=== PATIENT | female | born 1960 | race Caucasian/White ===

== ENCOUNTER 2017-06-15 19:42 | Inpatient (IN) | payer MEDICARE, MEDICAID ==
[2017-06-15 20:24] LABS: URINE MICROSCOPIC INDICATED? YES; URINE SOURCE RANDOM
[2017-06-15 20:25] LABS: % EOSINOPHILS 4.3 % (0.0-5.0); % LYMPHOCYTES 13.4 % (20.0-50.0); % MONOCYTES 8.7 % (2.0-10.0); % NEUTROPHILS 72.6 % (40.0-80.0); BASOPHILE ABSOLUTE 0.1 Th/cumm (0-0.2); EOSINOPHILE ABSOLUTE 0.3 Th/cmm (0.1-0.4); HEMATOCRIT 39.5 % (41.0-60); HEMOGLOBIN 13.7 gm/dL (12-16); LYMPHOCYTE ABSOLUTE 0.8 Th/cmm (1.5-3.0); MEAN CELL VOLUME 89.9 fl (81-100); MEAN CORPUSCULAR HEMOGLOBIN 31.2 pg (27.0-31.0); MEAN CORPUSCULAR HGB CONC 34.7 pg (28.0-36.0); MONOCYTE ABSOLUTE 0.5 Th/cmm (0.3-1.0); NEUTROPHILE ABSOLUTE 4.6 Th/cmm (1.8-8.0); PLATELET COUNT 271 Th/cmm (150-400); RED BLOOD COUNT 4.39 Mil/cmm (3.80-5.10); RED CELL DISTRIBUTION WIDTH 12.2 % (11.5-20.0); WHITE BLOOD COUNT 6.3 Th/cmm (4.8-10.8)
[2017-06-15 20:28] LABS: URINE BILIRUBIN NEGATIVE (NEGATIVE); URINE BLOOD NEGATIVE (NEGATIVE); URINE GLUCOSE (UA) NEGATIVE (NEGATIVE); URINE KETONE NEGATIVE (NEGATIVE); URINE LEUKOCYTE ESTERASE TRACE (NEGATIVE); URINE NITRATE NEGATIVE (NEGATIVE); URINE PH 7.5 (4.6 - 8.0); URINE PROTEIN NEGATIVE (NEGATIVE); URINE UROBILINOGEN 0.2 E.U./dL (0.2 - 1.0)
--- NOTE | 2017-06-15 20:33 | ED Physician Chart ---
ED Chief Complaint/HPI - Patient Information Date Seen:: 06/15/17 Time Seen:: 20:26 Chief Complaint:: HALLUCINATING History of Present Illness:: THIS IS A 56 YO FEMALE WHO WAS SENT FROM A ALF FOR AN EVALUATION AND TREATMENT OF HER ABNORMAL ACTIVITIES. SHE HAS BEEN CONFUSED ON AND OFF WITH SOME BEING UNCOOPERATIVE WITH THE STAFF. Allergies:: Allergies Allergy/AdvReac Type Severity Reaction Status Date / Time No Known Allergies Allergy Verified 06/15/17 19:57 Vitals:: Vital Signs - 8 hr 06/15/17 19:45 Temp 97.4 F HR 88 RR 17 BP 123/60 O2 Sat % 96 Historian:: Patient, Medical Records Review:: Nurse's Note Reviewed ED Review of Systems - Review of Systems General/Constitutional: No fever, No chills, No weight loss, No weakness, No diaphoresis, Edema, No loss of appetite Skin: No skin lesions, No rash, No bruising Head: No headache, No light-headedness Eyes: No loss of vision, No pain, No diplopia ENT: No earache, No nasal drainage, No sore throat, No tinnitus Neck: No neck pain, No swelling, No thyromegaly, No stiffness, No mass noted Cardio Vascular: No chest pain, No palpitations, No PND, No orthopnea, No edema Pulmonary: No SOB, No cough, No sputum, No wheezing GI: No nausea, No vomiting, No diarrhea, No pain, No melena, No hematochezia, No constipation, No hematemesis G/U: No dysuria, No frequency, No hematuria Musculoskeletal: No bone or joint pain, No back pain, No muscle pain Endocrine: No polyuria, No polydipsia Psychiatric: Prior psych history, No depression, No anxiety, No suicidal ideation, Auditory hallucination, Visual hallucination Hematopoietic: No bruising, No lymphadenopathy Allergic/Immuno: No urticaria, No angioedema Neurological: No syncope, No focal symptoms, No weakness, No paresthesia, No headache, No seizure, No dizziness, No confusion, No vertigo ED Past Medical History - Past Medical History Obtainable: Yes Past Medical History: HTN, Other (MAJOR DEPRESSION) Family History: None Social History: Smoker, No Alcohol, No Drug Use, Care Facility Surgical History: other (RIGHT OVARIAN SURGERY) Psychiatricy History: Depression Medication: Reviewed Family Medical History - Family Member Mother History Unknown: Yes Ethnicity: Non- ED Physical Exam - Physical Examination General/Constitutional: Awake, Well-developed, well-nourished, Alert, No distress, GCS 15, Non-toxic appearing, Ambulatory Head: Atraumatic Eyes: Lids, conjuctiva normal, PERRL, EOMI Skin: Nl inspection, No rash, No skin lesions, No ecchymosis, Well hydrated, No lymphadenopathy ENMT: External ears, nose nl, Nasal exam nl, Lips, teeth, gums nl Neck: Nontender, Full ROM w/o pain, No JVD, No nuchal rigidity, No bruit, No mass, No stridor Respiratory: Nl effort/Exclusion, Clear to Auscultation, No Wheeze/Rhonchi/Rales Cardio Vascular: RRR, No murmur, gallop, rubs, NL S1 S2 GI: No tenderness/rebounding/guarding, No organomegaly, No hernia, Normal BS's, Nondistended, No mass/bruits, No McBurney tenderness : No CVA tenderness Extremities: No tenderness or effusion, Full ROM, normal strength in all extremities, No edema (BILATERAL 2+ PITTING EDEMA OF BOTH LOWER EXTREMITIES.), Normal digits & nails Neuro/Psych: Alert/oriented, DTR's symmetric, Normal sensory exam, Normal motor strength, Judgement/insight normal (POOR INSIGHT), Mood normal, Normal gait, No focal deficits Misc: Normal back, No paraspinal tenderness ED Labs/Radiology/EKG Results - Lab Results Results: Abnormal Lab Results 06/15/17 06/15/17 06/15/17 20:00 20:15 20:15 WBC 6.3 RBC 4.39 Hgb 13.7 Hct 39.5 L MCV 89.9 MCH 31.2 H MCHC Differential 34.7 RDW 12.2 Plt Count 271 MPV 9.0 Neutrophils % 72.6 Lymphocytes % 13.4 L Monocytes % 8.7 Eosinophils % 4.3 Basophils % 1.0 Sodium 137 Potassium 3.6 Chloride 104 Carbon Dioxide 27.7 Anion Gap 8.9 BUN 14 Creatinine 0.9 Est GFR ( Amer) > 60.0 Est GFR (Non-Af Amer) > 60.0 BUN/Creatinine Ratio 15.6 Glucose 97 Calcium 8.6 Total Bilirubin 0.6 AST 19 ALT 17 Alkaline Phosphatase 53 Total Protein 5.9 L Albumin 3.7 Globulin 2.2 Albumin/Globulin Ratio 1.7 Urine Source RANDOM Urine Color YELLOW Urine Clarity CLEAR Urine pH 7.5 Ur Specific [place] 1.010 Urine Protein NEGATIVE Urine Glucose (UA) NEGATIVE Urine Ketones NEGATIVE Urine Blood NEGATIVE Urine Nitrate NEGATIVE Urine Bilirubin NEGATIVE Urine Urobilinogen 0.2 Ur Leukocyte Esterase TRACE H Urine RBC NONE SEEN Urine WBC 0-2 Ur Epithelial Cells FEW Urine Bacteria OCCASIONAL Valproic Acid 06/15/17 20:15 WBC RBC Hgb Hct MCV MCH MCHC Differential RDW Plt Count MPV Neutrophils % Lymphocytes % Monocytes % Eosinophils % Basophils % Sodium Potassium Chloride Carbon Dioxide Anion Gap BUN Creatinine Est GFR ( Amer) Est GFR (Non-Af Amer) BUN/Creatinine Ratio Glucose Calcium Total Bilirubin AST ALT Alkaline Phosphatase Total Protein Albumin Globulin Albumin/Globulin Ratio Urine Source Urine Color Urine Clarity Urine pH Ur Specific [place] Urine Protein Urine Glucose (UA) Urine Ketones Urine Blood Urine Nitrate Urine Bilirubin Urine Urobilinogen Ur Leukocyte Esterase Urine RBC Urine WBC Ur Epithelial Cells Urine Bacteria Valproic Acid 27.9 L - EKG Interpretations EKG Time:: 20:19 Rate & Rhythm: RATE = 77, SINUS [place]: RIGHT ED Assessment - Assessment General Assessment: DEPRESSION ED Septic Shock - . Is Septic Shock (SBP<90, OR Lactate>4 mmol\L) present?: No - <6hrs of presentation: Vital Signs: Vital Signs - 8 hr 06/15/17 19:45 Temp 97.4 F HR 88 RR 17 BP 123/60 O2 Sat % 96 ED Reassessment (Disposition) - Reassessment Reassessment Condition:: Unchanged - Diagnosis Diagnosis:: SEVERE DEPRESSION - Aftercare/Follow up Instructions Notes:: CLEARED FOR PSYCH ADMISSION - Patient Disposition Discharge/Transfer:: Acute Care w/in this hosp Admitting Medical Physician:: Lemuel Gandara Admitting Psych Physician:: Juanito Live Condition at Disposition:: Stable ED Discharge Plan - Patient Disposition Admit/Discharge/Transfer: Acute Care w/in this hosp Condition at Disposition: Unchanged Instructions: Psychosis
[2017-06-15 20:39] LABS: ALB/GLOB RATIO 1.7 (1.0-1.8); ALBUMIN 3.7 gm/dL (3.7-5.3); ALKALINE PHOSPHATASE 53 U/L (34-104); ANION GAP 8.9 (7.0-16.0); BILIRUBIN,TOTAL 0.6 mg/dL (0.3-1.0); BUN - UREA NITROGEN 14 mg/dL (7-25); CALCIUM SERUM 8.6 mg/dL (8.6-10.3); CARBON DIOXIDE 27.7 mEq/L (21.0-31.0); CHLORIDE 104 mEq/L (98-107); CREATININE - SERUM 0.9 mg/dL (0.6-1.2); GFR AFRICAN-AMERICAN > 60.0 ml/min (>90); GFR NON AFRICAN-AMERICAN > 60.0 ml/min; GLUCOSE 97 mg/dL (70-105); POTASSIUM SERUM 3.6 mEq/L (3.5-5.1); SGOT 19 U/L (13-39); SGPT/ALT 17 U/L (7-52); SODIUM SERUM 137 mEq/L (136-145); TOTAL PROTEIN,SERUM 5.9 gm/dL (6.0-8.3)
[2017-06-15 20:39] LABS: URINE BACTERIA OCCASIONAL /hpf (NONE SEEN); URINE CLARITY CLEAR (CLEAR); URINE COLOR YELLOW; URINE EPITHELIAL CELLS FEW /lpf (FEW); URINE RBC NONE SEEN /hpf (0-5); URINE WBC 0-2 /hpf (0-5)
[2017-06-15 22:59] VITALS: BP 125/61
[2017-06-16] MEDS ORDERED: DEXTRAN EACH EYE SCH (09:00)
[2017-06-16] MEDS ORDERED: Non-Formulary Item 1 EA (Vitamin B Complex [Vitamin B Complex] 1 TAB) PO SCH (09:00)
[2017-06-16] MEDS ORDERED: HYPROMELLOSE EACH EYE SCH (09:00)
[2017-06-16] MEDS: Polyvinyl Alcohol Ophth Soln 15 mL Bottle EACH EYE SCH ×2 (09:30→17:18)
[2017-06-16] MEDS: Potassium Chloride 20 mEq ER Tab PO SCH (09:30)
[2017-06-16] MEDS: Vitamin B Complex w/Vitamin C Tab PO SCH (09:30)
--- NOTE | 2017-06-16 11:24 | History and Physical ---
History of Present Illness - HPI Chief Complaint: Increased in agitation HPI: Patient is a permanent resident of a SNF, she was send for evaluation due to increased in agitation. 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 Pertinent Hx GI: Report: No Pertinent Hx Psych: Report: Psychosis Musculoskeletal: Report: No Pertinent Hx Rheumatologic: Report: No pertinent Hx Infectious Disease: Report: No Pertinent Hx Renal/: Report: No Pertinent Hx Endocrine: Report: No Pertinent Hx Dermatology: Report: No Pertinent Hx - Past Surgical History Past Surgical History: No pertinent Hx Family Medical History - Family Member Mother History Unknown: Yes Ethnicity: Non- Social History Smoke: No Alcohol: None Drugs: None [place]: [place] Domestic Violence: Negative - Medications Home Medications: Home Medication Medication Instructions Recorded Type Dextran 70/Hypromellose 2 drop EACH EYE BID 06/15/17 History [Artificial Tears] Divalproex DR [Depakote DR] 125 mg PO Q12H 06/15/17 History Docusate Sodium [Colace] 100 mg PO BID 06/15/17 History Furosemide [Lasix] 20 mg PO DAILY 06/15/17 History Ibuprofen 600 mg PO Q8H PRN 06/15/17 History Lisinopril 5 mg PO DAILY 06/15/17 History Lorazepam [Ativan] 0.5 mg PO Q12H 06/15/17 History Potassium Chloride ER [Klor-Con] 20 meq PO DAILY 06/15/17 History QUEtiapine Fumarate [SEROquel] 200 mg PO Q12H 06/15/17 History Sertraline [Zoloft] 75 mg PO DAILY 06/15/17 History Vitamin B Complex 1 tab PO DAILY 06/15/17 History Vitamin D 1,000 unit PO BID 06/15/17 History - Allergies Allergies/Adverse Reactions: Allergies Allergy/AdvReac Type Severity Reaction Status Date / Time No Known Allergies Allergy Verified 06/15/17 19:57 Review of Systems - Review of Systems Constitutional: Report: No Significant Eyes: Report: No Significant ENT: Report: No Significant Respiratory: Report: No Significant Cardiovascular: Report: No Significant Gastrointestinal: Report: No Significant Genitourinary: Report: No Significant Musculoskeletal: Report: No Significant Skin: Report: No Significant Neurological: Report: Other (Increased in agitation) Physical Exam - Physical Exam HEENT: Report: Ears Nose Throat within normal limits Neck: Report: Within normal limits Cardiovascular Systems: Report: Regular, Rate and Rhythm Respiratory: Report: Breath Sounds are within normal limits Abdomen: Report: Non-tender to palpation Back: Report: Inspection of back is within normal limits. Extremities: Report: Non-tender to palpation. Skin: Report: Color of skin is within normal limits Neuro/Psych: Report: Depressed affect - Assessment Assessment: Patient is awake, alert, calm. Dx: increased in agitation, HTN - Plan Plan: Patient under Psychiatric care, will continue with SNF meds. Will continue to monitor.
--- NOTE | 2017-06-16 22:24 | Psychosocial Evaluation ---
DATE OF SERVICE: 06/15/2017 IDENTIFYING DATA: The patient is a 56-year-old resident of [facility]. Information obtained by directly interviewing the patient as well as reviewing the admission papers and they are reliable. JUSTIFICATION FOR HOSPITALIZATION: The patient is admitted on a voluntary basis in view of her acute agitation. CHIEF COMPLAINT: "I do not know, I don't need all these medications." HISTORY OF PRESENT ILLNESS: This seems to be one of the multiple psychiatric hospitalizations for this patient who is reported to have been screaming and yelling and has been not able to contract for safety. The patient on the day of the hospitalization has been very agitated. Coping skills at this time are noted to be very poor. Insight and judgment are also noted to be very poor. The chart has been reviewed and the patient has been on Depakote 125 mg twice a day and Seroquel 200 mg twice a day, sertraline 75 mg daily. With these medications, the patient is still getting out of control and the patient at this time has been refusing to comply with the sertraline. PAST PSYCHIATRIC HISTORY: Please refer to the above. MEDICAL HISTORY: Physical examination is requested to done by Dr. Lemuel Gandara. SUBSTANCE ABUSE HISTORY: None. PHYSICAL OR SEXUAL ABUSE HISTORY: None. LEGAL PROBLEMS: None at this time. STRENGTH AND ASSETS: The patient is motivated. MENTAL STATUS EXAMINATION: The patient is a 56-year-old, looking her stated age, superficially cooperative. Eye contact is poor. Mood is noted to be irritable. Affect is constricted. Insight and judgment at this time are noted, very much impaired. Impulse control seems to be limited. Coping skills are noted to be limited. The patient is not able to contract for safety. No side effects to the medications are noted. The patient has been having difficult time to cope with the stress. ASSESSMENT: The patient still has mood swings and the patient has been yelling and screaming. The patient's short and long-term are noted to be intact. The patient's behavior is likely a danger to self and others at this time. DIAGNOSTIC IMPRESSION: AXIS I: Schizoaffective disorder. AXIS II: None. AXIS III: As per Dr. Gandara. IMMEDIATE TREATMENT PLAN: The patient is going to be observed on inpatient unit, provided with supportive psychotherapy. The patient is going to be closely monitored. Once stabilized, the patient is going to be discharged to [facility], to be followed up on an outpatient basis. JOB# [id number]
[2017-06-17] MEDS: Vitamin B Complex w/Vitamin C Tab PO SCH (08:37)
[2017-06-17] MEDS: Potassium Chloride 20 mEq ER Tab PO SCH (08:37)
--- NOTE | 2017-06-17 08:43 | General Progress Note ---
Subjective - Review of Systems Service Date: 06/17/17 Subjective: I am OK. Objective - Results Result Diagrams: 06/15/17 20:15 06/15/17 20:15 Recent Labs: Laboratory Last Values WBC 6.3 Th/cmm (4.8-10.8) 06/15/17 20:15 RBC 4.39 Mil/cmm (3.80-5.10) 06/15/17 20:15 Hgb 13.7 gm/dL (12-16) 06/15/17 20:15 Hct 39.5 % (41.0-60) L 06/15/17 20:15 MCV 89.9 fl (81-100) 06/15/17 20:15 MCH 31.2 pg (27.0-31.0) H 06/15/17 20:15 MCHC Differential 34.7 pg (28.0-36.0) 06/15/17 20:15 RDW 12.2 % (11.5-20.0) 06/15/17 20:15 Plt Count 271 Th/cmm (150-400) 06/15/17 20:15 MPV 9.0 fl 06/15/17 20:15 Neutrophils % 72.6 % (40.0-80.0) 06/15/17 20:15 Lymphocytes % 13.4 % (20.0-50.0) L 06/15/17 20:15 Monocytes % 8.7 % (2.0-10.0) 06/15/17 20:15 Eosinophils % 4.3 % (0.0-5.0) 06/15/17 20:15 Basophils % 1.0 % (0.0-2.0) 06/15/17 20:15 Sodium 137 mEq/L (136-145) 06/15/17 20:15 Potassium 3.6 mEq/L (3.5-5.1) 06/15/17 20:15 Chloride 104 mEq/L (98-107) 06/15/17 20:15 Carbon Dioxide 27.7 mEq/L (21.0-31.0) 06/15/17 20:15 Anion Gap 8.9 (7.0-16.0) 06/15/17 20:15 BUN 14 mg/dL (7-25) 06/15/17 20:15 Creatinine 0.9 mg/dL (0.6-1.2) 06/15/17 20:15 Est GFR ( Amer) > 60.0 ml/min (>90) 06/15/17 20:15 Est GFR (Non-Af Amer) > 60.0 ml/min 06/15/17 20:15 BUN/Creatinine Ratio 15.6 06/15/17 20:15 Glucose 97 mg/dL (70-105) 06/15/17 20:15 Calcium 8.6 mg/dL (8.6-10.3) 06/15/17 20:15 Total Bilirubin 0.6 mg/dL (0.3-1.0) 06/15/17 20:15 AST 19 U/L (13-39) 06/15/17 20:15 ALT 17 U/L (7-52) 06/15/17 20:15 Alkaline Phosphatase 53 U/L (34-104) 06/15/17 20:15 Total Protein 5.9 gm/dL (6.0-8.3) L 06/15/17 20:15 Albumin 3.7 gm/dL (3.7-5.3) 06/15/17 20:15 Globulin 2.2 gm/dL 06/15/17 20:15 Albumin/Globulin Ratio 1.7 (1.0-1.8) 06/15/17 20:15 TSH 2.66 uIU/ml (0.34-5.60) 06/15/17 20:15 Urine Source RANDOM 06/15/17 20:00 Urine Color YELLOW 06/15/17 20:00 Urine Clarity CLEAR (CLEAR) 06/15/17 20:00 Urine pH 7.5 (4.6 - 8.0) 06/15/17 20:00 Ur Specific [place] 1.010 (1.005-1.030) 06/15/17 20:00 Urine Protein NEGATIVE mg/dL (NEGATIVE) 06/15/17 20:00 Urine Glucose (UA) NEGATIVE mg/dL (NEGATIVE) 06/15/17 20:00 Urine Ketones NEGATIVE mg/dL (NEGATIVE) 06/15/17 20:00 Urine Blood NEGATIVE (NEGATIVE) 06/15/17 20:00 Urine Nitrate NEGATIVE (NEGATIVE) 06/15/17 20:00 Urine Bilirubin NEGATIVE (NEGATIVE) 06/15/17 20:00 Urine Urobilinogen 0.2 E.U./dL (0.2 - 1.0) 06/15/17 20:00 Ur Leukocyte Esterase TRACE (NEGATIVE) H 06/15/17 20:00 Urine RBC NONE SEEN /hpf (0-5) 06/15/17 20:00 Urine WBC 0-2 /hpf (0-5) 06/15/17 20:00 Ur Epithelial Cells FEW /lpf (FEW) 06/15/17 20:00 Urine Bacteria OCCASIONAL /hpf (NONE SEEN) 06/15/17 20:00 Valproic Acid 27.9 ug/mL (50.0-100.0) L 06/15/17 20:15 - Physical Exam Vitals and I&O: Vital Signs Temp 97.3 F 06/17/17 06:36 Pulse 79 06/17/17 06:36 Resp 20 06/17/17 06:36 BP 109/74 06/17/17 06:36 Pulse Ox 100 06/17/17 06:36 Intake & Output 06/16/17 06/17/17 06/17/17 18:59 06:59 18:59 Intake Total 300 120 Balance 300 120 Intake: Oral 300 120 Other: # Voids 2 2 # Bowel Movements 0 Active Medications: Current Medications Acetaminophen (Tylenol) 650 mg PO Q4HR PRN PRN Reason: Mild Pain / Temp above 100 Stop: 08/14/17 23:19 Artificial Tears (Artificial Tears Ophth Soln) 2 drop EACH EYE BID [facility] Stop: 08/15/17 08:59 Last Admin: 06/16/17 17:18 Dose: 2 drop Cholecalciferol (Vitamin D3) 1,000 iu PO BID KENZIE Stop: 08/15/17 08:59 Last Admin: 06/16/17 17:18 Dose: 1,000 iu Divalproex Sodium (Depakote Dr) 125 mg PO Q12H KENZIE PRN Reason: Protocol Stop: 08/15/17 08:59 Last Admin: 06/16/17 20:46 Dose: 125 mg Docusate Sodium (Colace) 100 mg PO BID KENZIE Stop: 08/15/17 08:59 Last Admin: 06/16/17 17:18 Dose: 100 mg Furosemide (Lasix) 20 mg PO DAILY [facility] Stop: 08/15/17 08:59 Last Admin: 06/16/17 11:34 Dose: 20 mg Ibuprofen (Motrin) 600 mg PO Q8H PRN PRN Reason: Pain (Moderate) Stop: 08/14/17 22:59 Lisinopril (Zestril) 5 mg PO DAILY [facility] Stop: 08/15/17 08:59 Last Admin: 06/16/17 09:30 Dose: 5 mg Lorazepam (Ativan) 0.5 mg PO Q12H KENZIE PRN Reason: Protocol Stop: 08/15/17 08:59 Last Admin: 06/16/17 20:45 Dose: 0.5 mg Potassium Chloride (Klor-Con) 20 meq PO DAILY K[facility]IE Stop: 08/15/17 08:59 Last Admin: 06/16/17 09:30 Dose: 20 meq Quetiapine Fumarate (Seroquel) 200 mg PO Q12H KENZIE PRN Reason: Protocol Stop: 08/15/17 08:59 Last Admin: 06/16/17 20:46 Dose: 200 mg Sertraline HCl (Zoloft) 50 mg PO DAILY KENZIE PRN Reason: Protocol Stop: 08/15/17 08:59 Vitamin B Complex/Vit C/Folic Acid (Vitamin B Complex W/Vitamin C) 1 tab PO DAILY [facility] Stop: 08/15/17 08:59 Last Admin: 06/16/17 09:30 Dose: 1 tab Zolpidem Tartrate (Ambien) 5 mg PO HS PRN PRN Reason: Insomnia Stop: 08/14/17 23:19 General: Alert, Other (Confused) HEENT: Atraumatic Neck: Supple Cardiovascular: Regular rate Lungs: Clear to auscultation Abdomen: Bowel sounds Neurological: Normal gait Skin: Other (Warm and dry) Psych/Mental Status: Other (Confused, not oriented) - Procedures Procedures: Procedures Procedure Code Date OT UNILAT SALPINGO-OOPHORECTOMY 65.49 05/27/98 REMOVAL OF OVARY/TUBE(S) 61577 05/27/98 Assessment/Plan - Assessment Assessment: Patient is awake, alert, calm. Dx: increased in agitation, HTN. - Plan Plan: Patient under Psychiatric care, will continue with SNF meds. Will continue to monitor.
[2017-06-17] MEDS: Polyvinyl Alcohol Ophth Soln 15 mL Bottle EACH EYE SCH ×2 (08:49→17:11)
--- NOTE | 2017-06-17 21:29 | Progress Notes ---
DATE: 06/17/2017 SUBJECTIVE: Staff was spoken to. The patient is interviewed. Mood is noted to be irritable. Affect is constricted. The patient is pacing most of the time on the unit. Insight and judgment are noted to be impaired. Coping skills are also noted to be very poor. The patient is reluctant to comply with the medications. No side effects to the medications are noted. ASSESSMENT: The patient is still psychotic. PLAN: To continue the patient with the current medications. I encouraged the patient to verbalize the concerns rather than to act out. The patient is not ready to be discharged to a lower level of care yet. JOB# [id number]
--- NOTE | 2017-06-18 08:58 | General Progress Note ---
Subjective - Review of Systems Service Date: 06/18/17 Subjective: I am OK. Objective - Results Result Diagrams: 06/15/17 20:15 06/15/17 20:15 Recent Labs: Laboratory Last Values WBC 6.3 Th/cmm (4.8-10.8) 06/15/17 20:15 RBC 4.39 Mil/cmm (3.80-5.10) 06/15/17 20:15 Hgb 13.7 gm/dL (12-16) 06/15/17 20:15 Hct 39.5 % (41.0-60) L 06/15/17 20:15 MCV 89.9 fl (81-100) 06/15/17 20:15 MCH 31.2 pg (27.0-31.0) H 06/15/17 20:15 MCHC Differential 34.7 pg (28.0-36.0) 06/15/17 20:15 RDW 12.2 % (11.5-20.0) 06/15/17 20:15 Plt Count 271 Th/cmm (150-400) 06/15/17 20:15 MPV 9.0 fl 06/15/17 20:15 Neutrophils % 72.6 % (40.0-80.0) 06/15/17 20:15 Lymphocytes % 13.4 % (20.0-50.0) L 06/15/17 20:15 Monocytes % 8.7 % (2.0-10.0) 06/15/17 20:15 Eosinophils % 4.3 % (0.0-5.0) 06/15/17 20:15 Basophils % 1.0 % (0.0-2.0) 06/15/17 20:15 Sodium 137 mEq/L (136-145) 06/15/17 20:15 Potassium 3.6 mEq/L (3.5-5.1) 06/15/17 20:15 Chloride 104 mEq/L (98-107) 06/15/17 20:15 Carbon Dioxide 27.7 mEq/L (21.0-31.0) 06/15/17 20:15 Anion Gap 8.9 (7.0-16.0) 06/15/17 20:15 BUN 14 mg/dL (7-25) 06/15/17 20:15 Creatinine 0.9 mg/dL (0.6-1.2) 06/15/17 20:15 Est GFR ( Amer) > 60.0 ml/min (>90) 06/15/17 20:15 Est GFR (Non-Af Amer) > 60.0 ml/min 06/15/17 20:15 BUN/Creatinine Ratio 15.6 06/15/17 20:15 Glucose 97 mg/dL (70-105) 06/15/17 20:15 Calcium 8.6 mg/dL (8.6-10.3) 06/15/17 20:15 Total Bilirubin 0.6 mg/dL (0.3-1.0) 06/15/17 20:15 AST 19 U/L (13-39) 06/15/17 20:15 ALT 17 U/L (7-52) 06/15/17 20:15 Alkaline Phosphatase 53 U/L (34-104) 06/15/17 20:15 Total Protein 5.9 gm/dL (6.0-8.3) L 06/15/17 20:15 Albumin 3.7 gm/dL (3.7-5.3) 06/15/17 20:15 Globulin 2.2 gm/dL 06/15/17 20:15 Albumin/Globulin Ratio 1.7 (1.0-1.8) 06/15/17 20:15 TSH 2.66 uIU/ml (0.34-5.60) 06/15/17 20:15 Urine Source RANDOM 06/15/17 20:00 Urine Color YELLOW 06/15/17 20:00 Urine Clarity CLEAR (CLEAR) 06/15/17 20:00 Urine pH 7.5 (4.6 - 8.0) 06/15/17 20:00 Ur Specific [place] 1.010 (1.005-1.030) 06/15/17 20:00 Urine Protein NEGATIVE mg/dL (NEGATIVE) 06/15/17 20:00 Urine Glucose (UA) NEGATIVE mg/dL (NEGATIVE) 06/15/17 20:00 Urine Ketones NEGATIVE mg/dL (NEGATIVE) 06/15/17 20:00 Urine Blood NEGATIVE (NEGATIVE) 06/15/17 20:00 Urine Nitrate NEGATIVE (NEGATIVE) 06/15/17 20:00 Urine Bilirubin NEGATIVE (NEGATIVE) 06/15/17 20:00 Urine Urobilinogen 0.2 E.U./dL (0.2 - 1.0) 06/15/17 20:00 Ur Leukocyte Esterase TRACE (NEGATIVE) H 06/15/17 20:00 Urine RBC NONE SEEN /hpf (0-5) 06/15/17 20:00 Urine WBC 0-2 /hpf (0-5) 06/15/17 20:00 Ur Epithelial Cells FEW /lpf (FEW) 06/15/17 20:00 Urine Bacteria OCCASIONAL /hpf (NONE SEEN) 06/15/17 20:00 Valproic Acid 27.9 ug/mL (50.0-100.0) L 06/15/17 20:15 - Physical Exam Vitals and I&O: Vital Signs Temp 98.1 F 06/18/17 07:18 Pulse 82 06/18/17 07:18 Resp 20 06/18/17 07:18 BP 118/74 06/18/17 07:18 Pulse Ox 99 06/18/17 07:18 Intake & Output 06/17/17 06/18/17 06/18/17 18:59 06:59 18:59 Intake Total 1200 180 400 Balance 1200 180 400 Intake: Oral 1200 180 400 Other: # Voids 2 1 1 # Bowel Movements 1 1 Active Medications: Current Medications Acetaminophen (Tylenol) 650 mg PO Q4HR PRN PRN Reason: Mild Pain / Temp above 100 Stop: 08/14/17 23:19 Artificial Tears (Artificial Tears Ophth Soln) 2 drop EACH EYE BID [facility] Stop: 08/15/17 08:59 Last Admin: 06/17/17 17:11 Dose: 2 drop Cholecalciferol (Vitamin D3) 1,000 iu PO BID [facility] Stop: 08/15/17 08:59 Last Admin: 06/17/17 17:11 Dose: 1,000 iu Divalproex Sodium (Depakote Dr) 125 mg PO Q12H KENZIE PRN Reason: Protocol Stop: 08/15/17 08:59 Last Admin: 06/17/17 21:00 Dose: Not Given Docusate Sodium (Colace) 100 mg PO BID [facility] Stop: 08/15/17 08:59 Last Admin: 06/17/17 17:11 Dose: 100 mg Furosemide (Lasix) 20 mg PO DAILY [facility] Stop: 08/15/17 08:59 Last Admin: 06/17/17 08:46 Dose: 20 mg Ibuprofen (Motrin) 600 mg PO Q8H PRN PRN Reason: Pain (Moderate) Stop: 08/14/17 22:59 Lisinopril (Zestril) 5 mg PO DAILY [facility] Stop: 08/15/17 08:59 Last Admin: 06/17/17 08:46 Dose: 5 mg Lorazepam (Ativan) 0.5 mg PO Q12H KENZIE PRN Reason: Protocol Stop: 08/15/17 08:59 Last Admin: 06/17/17 21:00 Dose: Not Given Potassium Chloride (Klor-Con) 20 meq PO DAILY [facility] Stop: 08/15/17 08:59 Last Admin: 06/17/17 08:37 Dose: 20 meq Quetiapine Fumarate (Seroquel) 200 mg PO Q12H KENZIE PRN Reason: Protocol Stop: 08/15/17 08:59 Last Admin: 06/17/17 21:00 Dose: Not Given Sertraline HCl (Zoloft) 50 mg PO DAILY KENZIE PRN Reason: Protocol Stop: 08/15/17 08:59 Last Admin: 06/17/17 08:36 Dose: 50 mg Vitamin B Complex/Vit C/Folic Acid (Vitamin B Complex W/Vitamin C) 1 tab PO DAILY [facility] Stop: 08/15/17 08:59 Last Admin: 06/17/17 08:37 Dose: 1 tab Zolpidem Tartrate (Ambien) 5 mg PO HS PRN PRN Reason: Insomnia Stop: 08/14/17 23:19 General: Alert, Other (Confused) HEENT: Atraumatic Neck: Supple Cardiovascular: Regular rate Lungs: Clear to auscultation Abdomen: Bowel sounds Neurological: Normal gait Skin: Other (Warm and dry) Psych/Mental Status: Other (Confused, not oriented) - Procedures Procedures: Procedures Procedure Code Date OT UNILAT SALPINGO-OOPHORECTOMY 65.49 05/27/98 REMOVAL OF OVARY/TUBE(S) 49214 05/27/98 Assessment/Plan - Assessment Assessment: Patient is awake, alert, agitated at moments. Dx: increased in agitation, HTN. - Plan Plan: Patient under Psychiatric care, will continue with SNF meds. Will continue to monitor.
[2017-06-18] MEDS: Polyvinyl Alcohol Ophth Soln 15 mL Bottle EACH EYE SCH ×2 (09:27→16:33)
[2017-06-18] MEDS: Vitamin B Complex w/Vitamin C Tab PO SCH (09:28)
[2017-06-18] MEDS: Potassium Chloride 20 mEq ER Tab PO SCH (09:28)
--- NOTE | 2017-06-18 23:43 | Progress Notes ---
DATE: 06/18/2017 SUBJECTIVE: Staff was spoken to. The patient is interviewed. Mood is noted to be irritable. Affect is constricted. Coping skills at this time are noted to be very poor. The patient has been pacing on the unit. The patient is stating that her sister is a conservator, I need to get in touch with her to take any medications by her. The patient's coping skill at this time are noted to be very poor. Continues to be very psychotic and impulsive. Refuses to take the sertraline, I have been trying to slowly taper the sertraline down, and the patient is currently on 50 mg, and I am planning to bring it down to 25 today, and encourage the patient to comply with the treatment. The patient has been placed on the Depakote and Seroquel. JOB# [id number]
--- NOTE | 2017-06-19 09:07 | General Progress Note ---
Subjective - Review of Systems Service Date: 06/19/17 Subjective: I am OK. Objective - Results Result Diagrams: 06/15/17 20:15 06/15/17 20:15 Recent Labs: Laboratory Last Values WBC 6.3 Th/cmm (4.8-10.8) 06/15/17 20:15 RBC 4.39 Mil/cmm (3.80-5.10) 06/15/17 20:15 Hgb 13.7 gm/dL (12-16) 06/15/17 20:15 Hct 39.5 % (41.0-60) L 06/15/17 20:15 MCV 89.9 fl (81-100) 06/15/17 20:15 MCH 31.2 pg (27.0-31.0) H 06/15/17 20:15 MCHC Differential 34.7 pg (28.0-36.0) 06/15/17 20:15 RDW 12.2 % (11.5-20.0) 06/15/17 20:15 Plt Count 271 Th/cmm (150-400) 06/15/17 20:15 MPV 9.0 fl 06/15/17 20:15 Neutrophils % 72.6 % (40.0-80.0) 06/15/17 20:15 Lymphocytes % 13.4 % (20.0-50.0) L 06/15/17 20:15 Monocytes % 8.7 % (2.0-10.0) 06/15/17 20:15 Eosinophils % 4.3 % (0.0-5.0) 06/15/17 20:15 Basophils % 1.0 % (0.0-2.0) 06/15/17 20:15 Sodium 137 mEq/L (136-145) 06/15/17 20:15 Potassium 3.6 mEq/L (3.5-5.1) 06/15/17 20:15 Chloride 104 mEq/L (98-107) 06/15/17 20:15 Carbon Dioxide 27.7 mEq/L (21.0-31.0) 06/15/17 20:15 Anion Gap 8.9 (7.0-16.0) 06/15/17 20:15 BUN 14 mg/dL (7-25) 06/15/17 20:15 Creatinine 0.9 mg/dL (0.6-1.2) 06/15/17 20:15 Est GFR ( Amer) > 60.0 ml/min (>90) 06/15/17 20:15 Est GFR (Non-Af Amer) > 60.0 ml/min 06/15/17 20:15 BUN/Creatinine Ratio 15.6 06/15/17 20:15 Glucose 97 mg/dL (70-105) 06/15/17 20:15 Calcium 8.6 mg/dL (8.6-10.3) 06/15/17 20:15 Total Bilirubin 0.6 mg/dL (0.3-1.0) 06/15/17 20:15 AST 19 U/L (13-39) 06/15/17 20:15 ALT 17 U/L (7-52) 06/15/17 20:15 Alkaline Phosphatase 53 U/L (34-104) 06/15/17 20:15 Total Protein 5.9 gm/dL (6.0-8.3) L 06/15/17 20:15 Albumin 3.7 gm/dL (3.7-5.3) 06/15/17 20:15 Globulin 2.2 gm/dL 06/15/17 20:15 Albumin/Globulin Ratio 1.7 (1.0-1.8) 06/15/17 20:15 TSH 2.66 uIU/ml (0.34-5.60) 06/15/17 20:15 Urine Source RANDOM 06/15/17 20:00 Urine Color YELLOW 06/15/17 20:00 Urine Clarity CLEAR (CLEAR) 06/15/17 20:00 Urine pH 7.5 (4.6 - 8.0) 06/15/17 20:00 Ur Specific [place] 1.010 (1.005-1.030) 06/15/17 20:00 Urine Protein NEGATIVE mg/dL (NEGATIVE) 06/15/17 20:00 Urine Glucose (UA) NEGATIVE mg/dL (NEGATIVE) 06/15/17 20:00 Urine Ketones NEGATIVE mg/dL (NEGATIVE) 06/15/17 20:00 Urine Blood NEGATIVE (NEGATIVE) 06/15/17 20:00 Urine Nitrate NEGATIVE (NEGATIVE) 06/15/17 20:00 Urine Bilirubin NEGATIVE (NEGATIVE) 06/15/17 20:00 Urine Urobilinogen 0.2 E.U./dL (0.2 - 1.0) 06/15/17 20:00 Ur Leukocyte Esterase TRACE (NEGATIVE) H 06/15/17 20:00 Urine RBC NONE SEEN /hpf (0-5) 06/15/17 20:00 Urine WBC 0-2 /hpf (0-5) 06/15/17 20:00 Ur Epithelial Cells FEW /lpf (FEW) 06/15/17 20:00 Urine Bacteria OCCASIONAL /hpf (NONE SEEN) 06/15/17 20:00 Valproic Acid 27.9 ug/mL (50.0-100.0) L 06/15/17 20:15 - Physical Exam Vitals and I&O: Vital Signs Temp 98.1 F 06/18/17 07:18 Pulse 82 06/18/17 07:18 Resp 20 06/18/17 10:02 BP 118/74 06/18/17 07:18 Pulse Ox 99 06/18/17 07:18 Intake & Output 06/18/17 06/19/17 06/19/17 18:59 06:59 18:59 Intake Total 400 120 Balance 400 120 Intake: Oral 400 120 Other: # Voids 1 1 # Bowel Movements 0 Stool Characteristics Formed Active Medications: Current Medications Acetaminophen (Tylenol) 650 mg PO Q4HR PRN PRN Reason: Mild Pain / Temp above 100 Stop: 08/14/17 23:19 Artificial Tears (Artificial Tears Ophth Soln) 2 drop EACH EYE BID [facility] Stop: 08/15/17 08:59 Last Admin: 06/18/17 16:33 Dose: Not Given Cholecalciferol (Vitamin D3) 1,000 iu PO BID [facility] Stop: 08/15/17 08:59 Last Admin: 06/18/17 16:32 Dose: Not Given Divalproex Sodium (Depakote Dr) 125 mg PO Q12H KENZIE PRN Reason: Protocol Stop: 08/15/17 08:59 Last Admin: 06/18/17 21:54 Dose: Not Given Docusate Sodium (Colace) 100 mg PO BID [facility] Stop: 08/15/17 08:59 Last Admin: 06/18/17 16:33 Dose: Not Given Furosemide (Lasix) 20 mg PO DAILY [facility] Stop: 08/15/17 08:59 Last Admin: 06/18/17 09:27 Dose: Not Given Ibuprofen (Motrin) 600 mg PO Q8H PRN PRN Reason: Pain (Moderate) Stop: 08/14/17 22:59 Lisinopril (Zestril) 5 mg PO DAILY [facility] Stop: 08/15/17 08:59 Last Admin: 06/18/17 09:27 Dose: Not Given Lorazepam (Ativan) 0.5 mg PO Q12H KENZIE PRN Reason: Protocol Stop: 08/15/17 08:59 Last Admin: 06/18/17 21:17 Dose: Not Given Potassium Chloride (Klor-Con) 20 meq PO DAILY [facility] Stop: 08/15/17 08:59 Last Admin: 06/18/17 09:28 Dose: Not Given Quetiapine Fumarate (Seroquel) 200 mg PO Q12H KENZIE PRN Reason: Protocol Stop: 08/15/17 08:59 Last Admin: 06/18/17 21:18 Dose: Not Given Sertraline HCl (Zoloft) 25 mg PO DAILY KENZIE PRN Reason: Protocol Stop: 08/18/17 08:59 Vitamin B Complex/Vit C/Folic Acid (Vitamin B Complex W/Vitamin C) 1 tab PO DAILY [facility] Stop: 08/15/17 08:59 Last Admin: 06/18/17 09:28 Dose: Not Given Zolpidem Tartrate (Ambien) 5 mg PO HS PRN PRN Reason: Insomnia Stop: 08/14/17 23:19 General: Alert, Other (Confused) HEENT: Atraumatic Neck: Supple Cardiovascular: Regular rate Lungs: Clear to auscultation Abdomen: Bowel sounds Neurological: Normal gait Skin: Other (Warm and dry) Psych/Mental Status: Other (Confused, not oriented) - Procedures Procedures: Procedures Procedure Code Date OT UNILAT SALPINGO-OOPHORECTOMY 65.49 05/27/98 REMOVAL OF OVARY/TUBE(S) 29248 05/27/98 Assessment/Plan - Assessment Assessment: Patient is awake, alert, agitated at moments. Dx: increased in agitation, HTN. - Plan Plan: Patient under Psychiatric care, will continue with SNF meds. Will continue to monitor.
[2017-06-19] MEDS ORDERED: Haloperidol Lactate 5 mg/mL 1mL Vial IM ONE (09:35)
[2017-06-19] MEDS ORDERED: Haloperidol Lactate 5 mg/mL 1mL Vial ONE (09:42)
[2017-06-19] MEDS: Vitamin B Complex w/Vitamin C Tab PO SCH (10:35)
[2017-06-19] MEDS: Polyvinyl Alcohol Ophth Soln 15 mL Bottle EACH EYE SCH ×2 (10:40→16:44)
[2017-06-19] MEDS: Potassium Chloride 20 mEq ER Tab PO SCH (10:40)
--- NOTE | 2017-06-19 18:57 | Progress Notes ---
DATE: 06/19/2017 SUBJECTIVE: Staff was spoken to. The patient is interviewed. Mood is noted to be irritable. Affect is constricted. The patient is screaming and yelling. The patient has to be given a dose of Haldol, Benadryl and Ativan to calm her down. The patient is not able to contract for safety. No side effects to the medications are noted. The patient is testing the limits on the unit. ASSESSMENT: The patient is still grossly psychotic. PLAN: To continue the patient with the current medications. I encouraged the patient to verbalize the concerns rather than to act out. JOB# [id number]
[2017-06-20] MEDS: Vitamin B Complex w/Vitamin C Tab PO SCH (09:53)
[2017-06-20] MEDS: Polyvinyl Alcohol Ophth Soln 15 mL Bottle EACH EYE SCH ×2 (09:53→16:21)
[2017-06-20] MEDS: Potassium Chloride 20 mEq ER Tab PO SCH (09:53)
--- NOTE | 2017-06-20 10:29 | General Progress Note ---
Subjective - Review of Systems Service Date: 06/20/17 Subjective: I am OK. Objective - Results Result Diagrams: 06/15/17 20:15 06/15/17 20:15 Recent Labs: Laboratory Last Values WBC 6.3 Th/cmm (4.8-10.8) 06/15/17 20:15 RBC 4.39 Mil/cmm (3.80-5.10) 06/15/17 20:15 Hgb 13.7 gm/dL (12-16) 06/15/17 20:15 Hct 39.5 % (41.0-60) L 06/15/17 20:15 MCV 89.9 fl (81-100) 06/15/17 20:15 MCH 31.2 pg (27.0-31.0) H 06/15/17 20:15 MCHC Differential 34.7 pg (28.0-36.0) 06/15/17 20:15 RDW 12.2 % (11.5-20.0) 06/15/17 20:15 Plt Count 271 Th/cmm (150-400) 06/15/17 20:15 MPV 9.0 fl 06/15/17 20:15 Neutrophils % 72.6 % (40.0-80.0) 06/15/17 20:15 Lymphocytes % 13.4 % (20.0-50.0) L 06/15/17 20:15 Monocytes % 8.7 % (2.0-10.0) 06/15/17 20:15 Eosinophils % 4.3 % (0.0-5.0) 06/15/17 20:15 Basophils % 1.0 % (0.0-2.0) 06/15/17 20:15 Sodium 137 mEq/L (136-145) 06/15/17 20:15 Potassium 3.6 mEq/L (3.5-5.1) 06/15/17 20:15 Chloride 104 mEq/L (98-107) 06/15/17 20:15 Carbon Dioxide 27.7 mEq/L (21.0-31.0) 06/15/17 20:15 Anion Gap 8.9 (7.0-16.0) 06/15/17 20:15 BUN 14 mg/dL (7-25) 06/15/17 20:15 Creatinine 0.9 mg/dL (0.6-1.2) 06/15/17 20:15 Est GFR ( Amer) > 60.0 ml/min (>90) 06/15/17 20:15 Est GFR (Non-Af Amer) > 60.0 ml/min 06/15/17 20:15 BUN/Creatinine Ratio 15.6 06/15/17 20:15 Glucose 97 mg/dL (70-105) 06/15/17 20:15 Calcium 8.6 mg/dL (8.6-10.3) 06/15/17 20:15 Total Bilirubin 0.6 mg/dL (0.3-1.0) 06/15/17 20:15 AST 19 U/L (13-39) 06/15/17 20:15 ALT 17 U/L (7-52) 06/15/17 20:15 Alkaline Phosphatase 53 U/L (34-104) 06/15/17 20:15 Total Protein 5.9 gm/dL (6.0-8.3) L 06/15/17 20:15 Albumin 3.7 gm/dL (3.7-5.3) 06/15/17 20:15 Globulin 2.2 gm/dL 06/15/17 20:15 Albumin/Globulin Ratio 1.7 (1.0-1.8) 06/15/17 20:15 TSH 2.66 uIU/ml (0.34-5.60) 06/15/17 20:15 Urine Source RANDOM 06/15/17 20:00 Urine Color YELLOW 06/15/17 20:00 Urine Clarity CLEAR (CLEAR) 06/15/17 20:00 Urine pH 7.5 (4.6 - 8.0) 06/15/17 20:00 Ur Specific [place] 1.010 (1.005-1.030) 06/15/17 20:00 Urine Protein NEGATIVE mg/dL (NEGATIVE) 06/15/17 20:00 Urine Glucose (UA) NEGATIVE mg/dL (NEGATIVE) 06/15/17 20:00 Urine Ketones NEGATIVE mg/dL (NEGATIVE) 06/15/17 20:00 Urine Blood NEGATIVE (NEGATIVE) 06/15/17 20:00 Urine Nitrate NEGATIVE (NEGATIVE) 06/15/17 20:00 Urine Bilirubin NEGATIVE (NEGATIVE) 06/15/17 20:00 Urine Urobilinogen 0.2 E.U./dL (0.2 - 1.0) 06/15/17 20:00 Ur Leukocyte Esterase TRACE (NEGATIVE) H 06/15/17 20:00 Urine RBC NONE SEEN /hpf (0-5) 06/15/17 20:00 Urine WBC 0-2 /hpf (0-5) 06/15/17 20:00 Ur Epithelial Cells FEW /lpf (FEW) 06/15/17 20:00 Urine Bacteria OCCASIONAL /hpf (NONE SEEN) 06/15/17 20:00 Valproic Acid 27.9 ug/mL (50.0-100.0) L 06/15/17 20:15 RPR NONREACTIVE (NONREACTIVE) 06/15/17 20:15 - Physical Exam Vitals and I&O: Vital Signs Temp 97.8 F 06/20/17 06:51 Pulse 75 06/20/17 06:51 Resp 20 06/20/17 06:51 BP 125/60 06/20/17 06:51 Pulse Ox 97 06/20/17 06:51 Intake & Output 06/19/17 06/20/17 06/20/17 18:59 06:59 18:59 Intake Total 800 120 Balance 800 120 Intake: Oral 800 120 Other: # Voids 3 3 # Bowel Movements 1 Stool Characteristics Formed Formed Active Medications: Current Medications Acetaminophen (Tylenol) 650 mg PO Q4HR PRN PRN Reason: Mild Pain / Temp above 100 Stop: 08/14/17 23:19 Artificial Tears (Artificial Tears Ophth Soln) 2 drop EACH EYE BID [facility] Stop: 08/15/17 08:59 Last Admin: 06/20/17 09:53 Dose: Not Given Cholecalciferol (Vitamin D3) 1,000 iu PO BID [facility] Stop: 08/15/17 08:59 Last Admin: 06/20/17 09:53 Dose: Not Given Divalproex Sodium (Depakote Dr) 125 mg PO Q12H KENZIE PRN Reason: Protocol Stop: 08/15/17 08:59 Last Admin: 06/20/17 09:53 Dose: Not Given Docusate Sodium (Colace) 100 mg PO BID [facility] Stop: 08/15/17 08:59 Last Admin: 06/20/17 09:53 Dose: Not Given Furosemide (Lasix) 20 mg PO DAILY [facility] Stop: 08/15/17 08:59 Last Admin: 06/20/17 09:53 Dose: Not Given Ibuprofen (Motrin) 600 mg PO Q8H PRN PRN Reason: Pain (Moderate) Stop: 08/14/17 22:59 Lisinopril (Zestril) 5 mg PO DAILY [facility] Stop: 08/15/17 08:59 Last Admin: 06/20/17 09:53 Dose: Not Given Lorazepam (Ativan) 0.5 mg PO Q12H KENZIE PRN Reason: Protocol Stop: 08/15/17 08:59 Last Admin: 06/20/17 09:53 Dose: Not Given Potassium Chloride (Klor-Con) 20 meq PO DAILY [facility] Stop: 08/15/17 08:59 Last Admin: 06/20/17 09:53 Dose: Not Given Quetiapine Fumarate (Seroquel) 200 mg PO Q12H KENZIE PRN Reason: Protocol Stop: 08/15/17 08:59 Last Admin: 06/20/17 09:53 Dose: Not Given Sertraline HCl (Zoloft) 25 mg PO DAILY KENZIE PRN Reason: Protocol Stop: 08/18/17 08:59 Last Admin: 06/20/17 09:53 Dose: Not Given Vitamin B Complex/Vit C/Folic Acid (Vitamin B Complex W/Vitamin C) 1 tab PO DAILY [facility] Stop: 08/15/17 08:59 Last Admin: 06/20/17 09:53 Dose: Not Given Zolpidem Tartrate (Ambien) 5 mg PO HS PRN PRN Reason: Insomnia Stop: 08/14/17 23:19 General: Alert, Other (Confused) HEENT: Atraumatic Neck: Supple Cardiovascular: Regular rate Lungs: Clear to auscultation Abdomen: Bowel sounds Neurological: Normal gait Skin: Other (Warm and dry) Psych/Mental Status: Other (Confused, not oriented) - Procedures Procedures: Procedures Procedure Code Date OT UNILAT SALPINGO-OOPHORECTOMY 65.49 05/27/98 REMOVAL OF OVARY/TUBE(S) 84446 05/27/98 Assessment/Plan - Assessment Assessment: Patient is awake, alert, agitated at moments. Dx: increased in agitation, HTN. - Plan Plan: Patient under Psychiatric care, will continue with SNF meds. Will continue to monitor.
--- NOTE | 2017-06-20 23:05 | Progress Notes ---
DATE: 06/20/2017 PSYCHIATRIC PROGRESS NOTE Staff was spoken to. The patient is interviewed. Mood is noted to be irritable. Affect is constricted. The patient is pacing most of the time. Insight and judgment at this time are noted to be still impaired. Impulse control seems to be limited. Coping skills are also noted to be limited. The patient is pacing most of the time and she is stating that she should not be on the medication and I need to get in touch with her sister and then give the medication. The patient is currently on 125 mg twice a day of the Depakote and Seroquel 200 mg twice a day. The patient is going to be discontinued off the Zoloft and the patient is going to be followed up with the supportive therapy. ASSESSMENT: The patient is still impulsive and psychotic. PLAN: To continue the patient with the supportive therapy, and I encouraged the patient to verbalize the concerns rather than to act out. JOB# [id number]
[2017-06-21] MEDS: Vitamin B Complex w/Vitamin C Tab PO SCH ×2 (08:30→08:36)
[2017-06-21] MEDS: Potassium Chloride 20 mEq ER Tab PO SCH ×2 (08:30→08:36)
--- NOTE | 2017-06-21 08:38 | General Progress Note ---
Subjective - Review of Systems Service Date: 06/21/17 Subjective: I am OK. Objective - Results Result Diagrams: 06/15/17 20:15 06/15/17 20:15 Recent Labs: Laboratory Last Values WBC 6.3 Th/cmm (4.8-10.8) 06/15/17 20:15 RBC 4.39 Mil/cmm (3.80-5.10) 06/15/17 20:15 Hgb 13.7 gm/dL (12-16) 06/15/17 20:15 Hct 39.5 % (41.0-60) L 06/15/17 20:15 MCV 89.9 fl (81-100) 06/15/17 20:15 MCH 31.2 pg (27.0-31.0) H 06/15/17 20:15 MCHC Differential 34.7 pg (28.0-36.0) 06/15/17 20:15 RDW 12.2 % (11.5-20.0) 06/15/17 20:15 Plt Count 271 Th/cmm (150-400) 06/15/17 20:15 MPV 9.0 fl 06/15/17 20:15 Neutrophils % 72.6 % (40.0-80.0) 06/15/17 20:15 Lymphocytes % 13.4 % (20.0-50.0) L 06/15/17 20:15 Monocytes % 8.7 % (2.0-10.0) 06/15/17 20:15 Eosinophils % 4.3 % (0.0-5.0) 06/15/17 20:15 Basophils % 1.0 % (0.0-2.0) 06/15/17 20:15 Sodium 137 mEq/L (136-145) 06/15/17 20:15 Potassium 3.6 mEq/L (3.5-5.1) 06/15/17 20:15 Chloride 104 mEq/L (98-107) 06/15/17 20:15 Carbon Dioxide 27.7 mEq/L (21.0-31.0) 06/15/17 20:15 Anion Gap 8.9 (7.0-16.0) 06/15/17 20:15 BUN 14 mg/dL (7-25) 06/15/17 20:15 Creatinine 0.9 mg/dL (0.6-1.2) 06/15/17 20:15 Est GFR ( Amer) > 60.0 ml/min (>90) 06/15/17 20:15 Est GFR (Non-Af Amer) > 60.0 ml/min 06/15/17 20:15 BUN/Creatinine Ratio 15.6 06/15/17 20:15 Glucose 97 mg/dL (70-105) 06/15/17 20:15 Calcium 8.6 mg/dL (8.6-10.3) 06/15/17 20:15 Total Bilirubin 0.6 mg/dL (0.3-1.0) 06/15/17 20:15 AST 19 U/L (13-39) 06/15/17 20:15 ALT 17 U/L (7-52) 06/15/17 20:15 Alkaline Phosphatase 53 U/L (34-104) 06/15/17 20:15 Total Protein 5.9 gm/dL (6.0-8.3) L 06/15/17 20:15 Albumin 3.7 gm/dL (3.7-5.3) 06/15/17 20:15 Globulin 2.2 gm/dL 06/15/17 20:15 Albumin/Globulin Ratio 1.7 (1.0-1.8) 06/15/17 20:15 TSH 2.66 uIU/ml (0.34-5.60) 06/15/17 20:15 Urine Source RANDOM 06/15/17 20:00 Urine Color YELLOW 06/15/17 20:00 Urine Clarity CLEAR (CLEAR) 06/15/17 20:00 Urine pH 7.5 (4.6 - 8.0) 06/15/17 20:00 Ur Specific [place] 1.010 (1.005-1.030) 06/15/17 20:00 Urine Protein NEGATIVE mg/dL (NEGATIVE) 06/15/17 20:00 Urine Glucose (UA) NEGATIVE mg/dL (NEGATIVE) 06/15/17 20:00 Urine Ketones NEGATIVE mg/dL (NEGATIVE) 06/15/17 20:00 Urine Blood NEGATIVE (NEGATIVE) 06/15/17 20:00 Urine Nitrate NEGATIVE (NEGATIVE) 06/15/17 20:00 Urine Bilirubin NEGATIVE (NEGATIVE) 06/15/17 20:00 Urine Urobilinogen 0.2 E.U./dL (0.2 - 1.0) 06/15/17 20:00 Ur Leukocyte Esterase TRACE (NEGATIVE) H 06/15/17 20:00 Urine RBC NONE SEEN /hpf (0-5) 06/15/17 20:00 Urine WBC 0-2 /hpf (0-5) 06/15/17 20:00 Ur Epithelial Cells FEW /lpf (FEW) 06/15/17 20:00 Urine Bacteria OCCASIONAL /hpf (NONE SEEN) 06/15/17 20:00 Valproic Acid 27.9 ug/mL (50.0-100.0) L 06/15/17 20:15 RPR NONREACTIVE (NONREACTIVE) 06/15/17 20:15 - Physical Exam Vitals and I&O: Vital Signs Temp 96.8 F 06/20/17 14:00 Pulse 88 06/20/17 14:00 Resp 20 06/20/17 14:00 BP 129/71 06/20/17 14:00 Pulse Ox 96 06/20/17 14:00 Intake & Output 06/20/17 06/21/17 06/21/17 18:59 06:59 18:59 Intake Total 1000 Balance 1000 Intake: Oral 1000 Other: # Voids 3 # Bowel Movements 1 Stool Characteristics Soft Liquid Active Medications: Current Medications Acetaminophen (Tylenol) 650 mg PO Q4HR PRN PRN Reason: Mild Pain / Temp above 100 Stop: 08/14/17 23:19 Artificial Tears (Artificial Tears Ophth Soln) 2 drop EACH EYE BID [facility] Stop: 08/15/17 08:59 Last Admin: 06/20/17 16:21 Dose: 2 drop Cholecalciferol (Vitamin D3) 1,000 iu PO BID [facility] Stop: 08/15/17 08:59 Last Admin: 06/20/17 16:20 Dose: Not Given Divalproex Sodium (Depakote Dr) 125 mg PO Q12H KENZIE PRN Reason: Protocol Stop: 08/15/17 08:59 Last Admin: 06/20/17 20:59 Dose: Not Given Docusate Sodium (Colace) 100 mg PO BID [facility] Stop: 08/15/17 08:59 Last Admin: 06/20/17 16:20 Dose: Not Given Furosemide (Lasix) 20 mg PO DAILY [facility] Stop: 08/15/17 08:59 Last Admin: 06/20/17 09:53 Dose: Not Given Ibuprofen (Motrin) 600 mg PO Q8H PRN PRN Reason: Pain (Moderate) Stop: 08/14/17 22:59 Lisinopril (Zestril) 5 mg PO DAILY [facility] Stop: 08/15/17 08:59 Last Admin: 06/20/17 09:53 Dose: Not Given Lorazepam (Ativan) 0.5 mg PO Q12H KENZIE PRN Reason: Protocol Stop: 08/15/17 08:59 Last Admin: 06/20/17 20:59 Dose: Not Given Potassium Chloride (Klor-Con) 20 meq PO DAILY [facility] Stop: 08/15/17 08:59 Last Admin: 06/20/17 09:53 Dose: Not Given Quetiapine Fumarate (Seroquel) 200 mg PO Q12H KENZIE PRN Reason: Protocol Stop: 08/15/17 08:59 Last Admin: 06/20/17 20:59 Dose: Not Given Vitamin B Complex/Vit C/Folic Acid (Vitamin B Complex W/Vitamin C) 1 tab PO DAILY [facility] Stop: 08/15/17 08:59 Last Admin: 06/20/17 09:53 Dose: Not Given Zolpidem Tartrate (Ambien) 5 mg PO HS PRN PRN Reason: Insomnia Stop: 08/14/17 23:19 General: Alert, Other (Confused) HEENT: Atraumatic Neck: Supple Cardiovascular: Regular rate Lungs: Clear to auscultation Abdomen: Bowel sounds Neurological: Normal gait Skin: Other (Warm and dry) Psych/Mental Status: Other (Confused, not oriented) - Procedures Procedures: Procedures Procedure Code Date OT UNILAT SALPINGO-OOPHORECTOMY 65.49 05/27/98 REMOVAL OF OVARY/TUBE(S) 90178 05/27/98 Assessment/Plan - Assessment Assessment: Patient is awake, alert, agitated at moments. Dx: increased in agitation, HTN. - Plan Plan: Patient under Psychiatric care, will continue with SNF meds. Will continue to monitor. Nutritional Asmnt/Malnutr-PDOC - Dietary Evaluation Malnutrition Findings (Please click <Entered> for more info): Nutritional Asmnt/Malnutrition Start: 06/20/17 15: 46 Text: Status: Complete Freq: Document 06/20/17 15:46 LCHENG (Rec: 06/20/17 15:56 [id number]) Nutritional Asmnt/Malnutrition Patient General Information Nutritional Screening Moderate Risk Diagnosis psychosis Pertinent Medical Hx/Surgical Hx CAD, HTN Subjective Information Pt seen sitting on bed at the time of visit, awake and alert . Pt reported good appetite, PO intake 100%, likes the food , no coffee but likes tea. Current Diet Order/ Nutrition Support low sodium Pertinent Medications vitamin D3, colace, lasix, kcl , seroquel, vitamin B complex/ visit C/folic acid Pertinent Labs 06/15 nutrition related labs WNL Nutritional Hx/Data Height 1.7 m Height (Calculated Centimeters) 170.2 Current Weight (lbs) 92.986 kg Weight (Calculated Kilograms) 93.0 Weight (Calculated Grams) 30084.4 [place] Body Weight 148 % [place] Body Weight 139 Body Mass Index (BMI) 32.1 Weight Status Obese GI Symptoms GI Symptoms None Last BM 06/19 Difficult in: None Skin Integrity/Comment: swelling BLE, intact Current %PO Good (75-100%) Estimated Nutritional Goals BEE in Kcals: Adj wt of IBW Calories/Kcals/Kg 25-30 based on adj wt 74kg Kcals Calculated 0112-9199 Protein: Adj wt of IBW Protein g/k Protein Calculated 74 Fluid: ml 8425-9139 Nutritional Problem No current Nutrition Prob Problem N/A Malnutrition Alert Protein-Calorie Malnutrition N/A Is there a minimum of two criteria No selected? Query Text:Check all the applicable criteria. A minimum of two criteria are recommended for diagnosis of either severe or non-severe malnutrition. Intervention/Recommendation Comments 1. Continue with current diet as ordered. Notified blood bank credit clerk and updated food preference. 2. Monitor PO intake, wt, labs and skin integrity 3. F/U as low risk in 7 days, 06/27 Expected Outcomes/Goals Expected Outcomes/Goals 1. PO intake to meet at least 75% of nutritional needs. 2. Wt stability, skin to remain intact, labs WNL
[2017-06-21] MEDS: Polyvinyl Alcohol Ophth Soln 15 mL Bottle EACH EYE SCH (09:32)
--- NOTE | 2017-06-21 11:51 | Progress Notes ---
DATE: 06/21/2017 PSYCHIATRIC PROGRESS NOTE SUBJECTIVE: Staff was spoken to. Patient is interviewed. Mood is irritable. Affect is constricted. The patient is refusing to comply with any of the medications stating that she does not need to be on any medications. The patient is currently on 125 mg twice a day of the Depakote and patient is also on 200 mg twice a day of the Seroquel. The patient is pacing on the unit and is reluctant to comply with the medication. The patient is going to be closely monitored since the patient is conserved. The patient has been informed that he might end up taking the medication by injection. ASSESSMENT: The patient is still having mood swings and psychosis. PLAN: To continue the patient with the supportive therapy and followup. JOB# [id number]
[2017-06-22] MEDS: Potassium Chloride 20 mEq ER Tab PO SCH (09:12)
[2017-06-22] MEDS: Vitamin B Complex w/Vitamin C Tab PO SCH (09:13)
[2017-06-22] MEDS: Polyvinyl Alcohol Ophth Soln 15 mL Bottle EACH EYE SCH ×2 (09:16→17:29)
--- NOTE | 2017-06-22 11:41 | General Progress Note ---
Subjective - Review of Systems Service Date: 06/22/17 Subjective: I am OK. Objective - Results Result Diagrams: 06/15/17 20:15 06/15/17 20:15 Recent Labs: Laboratory Last Values WBC 6.3 Th/cmm (4.8-10.8) 06/15/17 20:15 RBC 4.39 Mil/cmm (3.80-5.10) 06/15/17 20:15 Hgb 13.7 gm/dL (12-16) 06/15/17 20:15 Hct 39.5 % (41.0-60) L 06/15/17 20:15 MCV 89.9 fl (81-100) 06/15/17 20:15 MCH 31.2 pg (27.0-31.0) H 06/15/17 20:15 MCHC Differential 34.7 pg (28.0-36.0) 06/15/17 20:15 RDW 12.2 % (11.5-20.0) 06/15/17 20:15 Plt Count 271 Th/cmm (150-400) 06/15/17 20:15 MPV 9.0 fl 06/15/17 20:15 Neutrophils % 72.6 % (40.0-80.0) 06/15/17 20:15 Lymphocytes % 13.4 % (20.0-50.0) L 06/15/17 20:15 Monocytes % 8.7 % (2.0-10.0) 06/15/17 20:15 Eosinophils % 4.3 % (0.0-5.0) 06/15/17 20:15 Basophils % 1.0 % (0.0-2.0) 06/15/17 20:15 Sodium 137 mEq/L (136-145) 06/15/17 20:15 Potassium 3.6 mEq/L (3.5-5.1) 06/15/17 20:15 Chloride 104 mEq/L (98-107) 06/15/17 20:15 Carbon Dioxide 27.7 mEq/L (21.0-31.0) 06/15/17 20:15 Anion Gap 8.9 (7.0-16.0) 06/15/17 20:15 BUN 14 mg/dL (7-25) 06/15/17 20:15 Creatinine 0.9 mg/dL (0.6-1.2) 06/15/17 20:15 Est GFR ( Amer) > 60.0 ml/min (>90) 06/15/17 20:15 Est GFR (Non-Af Amer) > 60.0 ml/min 06/15/17 20:15 BUN/Creatinine Ratio 15.6 06/15/17 20:15 Glucose 97 mg/dL (70-105) 06/15/17 20:15 Calcium 8.6 mg/dL (8.6-10.3) 06/15/17 20:15 Total Bilirubin 0.6 mg/dL (0.3-1.0) 06/15/17 20:15 AST 19 U/L (13-39) 06/15/17 20:15 ALT 17 U/L (7-52) 06/15/17 20:15 Alkaline Phosphatase 53 U/L (34-104) 06/15/17 20:15 Total Protein 5.9 gm/dL (6.0-8.3) L 06/15/17 20:15 Albumin 3.7 gm/dL (3.7-5.3) 06/15/17 20:15 Globulin 2.2 gm/dL 06/15/17 20:15 Albumin/Globulin Ratio 1.7 (1.0-1.8) 06/15/17 20:15 TSH 2.66 uIU/ml (0.34-5.60) 06/15/17 20:15 Urine Source RANDOM 06/15/17 20:00 Urine Color YELLOW 06/15/17 20:00 Urine Clarity CLEAR (CLEAR) 06/15/17 20:00 Urine pH 7.5 (4.6 - 8.0) 06/15/17 20:00 Ur Specific [place] 1.010 (1.005-1.030) 06/15/17 20:00 Urine Protein NEGATIVE mg/dL (NEGATIVE) 06/15/17 20:00 Urine Glucose (UA) NEGATIVE mg/dL (NEGATIVE) 06/15/17 20:00 Urine Ketones NEGATIVE mg/dL (NEGATIVE) 06/15/17 20:00 Urine Blood NEGATIVE (NEGATIVE) 06/15/17 20:00 Urine Nitrate NEGATIVE (NEGATIVE) 06/15/17 20:00 Urine Bilirubin NEGATIVE (NEGATIVE) 06/15/17 20:00 Urine Urobilinogen 0.2 E.U./dL (0.2 - 1.0) 06/15/17 20:00 Ur Leukocyte Esterase TRACE (NEGATIVE) H 06/15/17 20:00 Urine RBC NONE SEEN /hpf (0-5) 06/15/17 20:00 Urine WBC 0-2 /hpf (0-5) 06/15/17 20:00 Ur Epithelial Cells FEW /lpf (FEW) 06/15/17 20:00 Urine Bacteria OCCASIONAL /hpf (NONE SEEN) 06/15/17 20:00 Valproic Acid 27.9 ug/mL (50.0-100.0) L 06/15/17 20:15 RPR NONREACTIVE (NONREACTIVE) 06/15/17 20:15 - Physical Exam Vitals and I&O: Vital Signs Temp 98.2 F 06/21/17 20:06 Pulse 64 06/22/17 08:30 Resp 19 06/21/17 20:06 BP 93/53 06/22/17 08:30 Pulse Ox 98 06/21/17 20:06 Intake & Output 06/21/17 06/22/17 06/22/17 18:59 06:59 18:59 Intake Total 1000 240 Balance 1000 240 Intake: Oral 1000 240 Other: # Voids 3 2 Active Medications: Current Medications Acetaminophen (Tylenol) 650 mg PO Q4HR PRN PRN Reason: Mild Pain / Temp above 100 Stop: 08/14/17 23:19 Artificial Tears (Artificial Tears Ophth Soln) 2 drop EACH EYE BID [facility] Stop: 08/15/17 08:59 Last Admin: 06/22/17 09:16 Dose: Not Given Cholecalciferol (Vitamin D3) 1,000 iu PO BID [facility] Stop: 08/15/17 08:59 Last Admin: 06/22/17 09:16 Dose: Not Given Divalproex Sodium (Depakote Dr) 250 mg PO Q12H KENZIE PRN Reason: Protocol Stop: 08/15/17 08:59 Docusate Sodium (Colace) 100 mg PO BID [facility] Stop: 08/15/17 08:59 Last Admin: 06/22/17 09:12 Dose: Not Given Furosemide (Lasix) 20 mg PO DAILY [facility] Stop: 08/15/17 08:59 Last Admin: 06/22/17 08:30 Dose: Not Given Ibuprofen (Motrin) 600 mg PO Q8H PRN PRN Reason: Pain (Moderate) Stop: 08/14/17 22:59 Lisinopril (Zestril) 5 mg PO DAILY [facility] Stop: 08/15/17 08:59 Last Admin: 06/22/17 08:30 Dose: Not Given Lorazepam (Ativan) 0.5 mg PO Q12H KENZIE PRN Reason: Protocol Stop: 08/15/17 08:59 Last Admin: 06/22/17 09:13 Dose: Not Given Potassium Chloride (Klor-Con) 20 meq PO DAILY [facility] Stop: 08/15/17 08:59 Last Admin: 06/22/17 09:12 Dose: Not Given Quetiapine Fumarate (Seroquel) 200 mg PO Q12H KENZIE PRN Reason: Protocol Stop: 08/15/17 08:59 Last Admin: 06/22/17 09:12 Dose: Not Given Vitamin B Complex/Vit C/Folic Acid (Vitamin B Complex W/Vitamin C) 1 tab PO DAILY [facility] Stop: 08/15/17 08:59 Last Admin: 06/22/17 09:13 Dose: Not Given Zolpidem Tartrate (Ambien) 5 mg PO HS PRN PRN Reason: Insomnia Stop: 08/14/17 23:19 General: Alert, Other (Confused) HEENT: Atraumatic Neck: Supple Cardiovascular: Regular rate Lungs: Clear to auscultation Abdomen: Bowel sounds Neurological: Normal gait Skin: Other (Warm and dry) Psych/Mental Status: Other (Confused, not oriented) - Procedures Procedures: Procedures Procedure Code Date [facility] UNILAT SALPINGO-OOPHORECTOMY 65.49 05/27/98 REMOVAL OF OVARY/TUBE(S) 84597 05/27/98 Assessment/Plan - Assessment Assessment: Patient is awake, alert, agitated at moments. Dx: increased in agitation, HTN. - Plan Plan: Patient under Psychiatric care, will continue with SNF meds. Will continue to monitor. Nutritional Asmnt/Malnutr-PDOC - Dietary Evaluation Malnutrition Findings (Please click <Entered> for more info): Nutritional Asmnt/Malnutrition Start: 06/20/17 15: 46 Text: Status: Complete Freq: Document 06/20/17 15:46 LCHENG (Rec: 06/20/17 15:56 LCHENG [email or web address]) Nutritional Asmnt/Malnutrition Patient General Information Nutritional Screening Moderate Risk Diagnosis psychosis Pertinent Medical Hx/Surgical Hx CAD, HTN Subjective Information Pt seen sitting on bed at the time of visit, awake and alert . Pt reported good appetite, PO intake 100%, likes the food , no coffee but likes tea. Current Diet Order/ Nutrition Support low sodium Pertinent Medications vitamin D3, colace, lasix, kcl , seroquel, vitamin B complex/ visit C/folic acid Pertinent Labs 06/15 nutrition related labs WNL Nutritional Hx/Data Height 1.7 m Height (Calculated Centimeters) 170.2 Current Weight (lbs) 92.986 kg Weight (Calculated Kilograms) 93.0 Weight (Calculated Grams) 80709.4 [place] Body Weight 148 % [place] Body Weight 139 Body Mass Index (BMI) 32.1 Weight Status Obese GI Symptoms GI Symptoms None Last BM 06/19 Difficult in: None Skin Integrity/Comment: swelling BLE, intact Current %PO Good (75-100%) Estimated Nutritional Goals BEE in Kcals: Adj wt of IBW Calories/Kcals/Kg 25-30 based on adj wt 74kg Kcals Calculated 1627-4977 Protein: Adj wt of IBW Protein g/k Protein Calculated 74 Fluid: ml 9401-5721 Nutritional Problem No current Nutrition Prob Problem N/A Malnutrition Alert Protein-Calorie Malnutrition N/A Is there a minimum of two criteria No selected? Query Text:Check all the applicable criteria. A minimum of two criteria are recommended for diagnosis of either severe or non-severe malnutrition. Intervention/Recommendation Comments 1. Continue with current diet as ordered. Notified dietetics teacher and updated food preference. 2. Monitor PO intake, wt, labs and skin integrity 3. F/U as low risk in 7 days, 06/27 Expected Outcomes/Goals Expected Outcomes/Goals 1. PO intake to meet at least 75% of nutritional needs. 2. Wt stability, skin to remain intact, labs WNL
--- NOTE | 2017-06-22 20:44 | Progress Notes ---
DATE: 06/22/2017 SUBJECTIVE: Staff was spoken to. The patient is interviewed. Mood is noted to be irritable. Affect is constricted. The patient is pacing most of the time on the unit. Coping skills are noted to be extremely poor at this time. The patient has been demanding that she should leave and she should not be on any medications. The patient's impulsivity is a major problem. The patient is currently on Depakote, which is going to be increased from 125 mg to 250 mg twice a day in view of the impulsivity and the patient is going to be encouraged to participate in the groups and verbalize the concerns rather than to act out. The patient is going to be closely monitored. The patient is also on Seroquel 200 mg twice a day and that will be continued. ASSESSMENT: The patient is still psychotic and impulsive. PLAN: To continue the patient with the current medications and followup. JOB# [id number]
[2017-06-23] MEDS: Potassium Chloride 20 mEq ER Tab PO SCH (08:53)
[2017-06-23] MEDS: Vitamin B Complex w/Vitamin C Tab PO SCH (08:53)
[2017-06-23] MEDS: Polyvinyl Alcohol Ophth Soln 15 mL Bottle EACH EYE SCH ×2 (09:08→18:37)
--- NOTE | 2017-06-23 20:08 | Progress Notes ---
DATE: 06/23/2017 SUBJECTIVE: Staff was spoken to. The patient is interviewed. Mood is noted to be irritable. The patient is very paranoid and pacing most of the time on the unit. Coping skills are noted to be poor. The patient has been trying to shake the exit doors and the patient has no insight into her illness and stating that her sister is the one that is going to be deciding, whether she needs to be on the medication or not. ASSESSMENT: The patient is still impulsive. PLAN: Continue the patient with supportive therapy. I encouraged the patient to verbalize the concerns rather than to act out. The patient is going to be continued on the current medications. JOB# [id number]
--- NOTE | 2017-06-24 09:27 | General Progress Note ---
Subjective - Review of Systems Service Date: 06/24/17 Subjective: I am OK. Objective - Results Result Diagrams: 06/15/17 20:15 06/15/17 20:15 Recent Labs: Laboratory Last Values WBC 6.3 Th/cmm (4.8-10.8) 06/15/17 20:15 RBC 4.39 Mil/cmm (3.80-5.10) 06/15/17 20:15 Hgb 13.7 gm/dL (12-16) 06/15/17 20:15 Hct 39.5 % (41.0-60) L 06/15/17 20:15 MCV 89.9 fl (81-100) 06/15/17 20:15 MCH 31.2 pg (27.0-31.0) H 06/15/17 20:15 MCHC Differential 34.7 pg (28.0-36.0) 06/15/17 20:15 RDW 12.2 % (11.5-20.0) 06/15/17 20:15 Plt Count 271 Th/cmm (150-400) 06/15/17 20:15 MPV 9.0 fl 06/15/17 20:15 Neutrophils % 72.6 % (40.0-80.0) 06/15/17 20:15 Lymphocytes % 13.4 % (20.0-50.0) L 06/15/17 20:15 Monocytes % 8.7 % (2.0-10.0) 06/15/17 20:15 Eosinophils % 4.3 % (0.0-5.0) 06/15/17 20:15 Basophils % 1.0 % (0.0-2.0) 06/15/17 20:15 Sodium 137 mEq/L (136-145) 06/15/17 20:15 Potassium 3.6 mEq/L (3.5-5.1) 06/15/17 20:15 Chloride 104 mEq/L (98-107) 06/15/17 20:15 Carbon Dioxide 27.7 mEq/L (21.0-31.0) 06/15/17 20:15 Anion Gap 8.9 (7.0-16.0) 06/15/17 20:15 BUN 14 mg/dL (7-25) 06/15/17 20:15 Creatinine 0.9 mg/dL (0.6-1.2) 06/15/17 20:15 Est GFR ( Amer) > 60.0 ml/min (>90) 06/15/17 20:15 Est GFR (Non-Af Amer) > 60.0 ml/min 06/15/17 20:15 BUN/Creatinine Ratio 15.6 06/15/17 20:15 Glucose 97 mg/dL (70-105) 06/15/17 20:15 Calcium 8.6 mg/dL (8.6-10.3) 06/15/17 20:15 Total Bilirubin 0.6 mg/dL (0.3-1.0) 06/15/17 20:15 AST 19 U/L (13-39) 06/15/17 20:15 ALT 17 U/L (7-52) 06/15/17 20:15 Alkaline Phosphatase 53 U/L (34-104) 06/15/17 20:15 Total Protein 5.9 gm/dL (6.0-8.3) L 06/15/17 20:15 Albumin 3.7 gm/dL (3.7-5.3) 06/15/17 20:15 Globulin 2.2 gm/dL 06/15/17 20:15 Albumin/Globulin Ratio 1.7 (1.0-1.8) 06/15/17 20:15 TSH 2.66 uIU/ml (0.34-5.60) 06/15/17 20:15 Urine Source RANDOM 06/15/17 20:00 Urine Color YELLOW 06/15/17 20:00 Urine Clarity CLEAR (CLEAR) 06/15/17 20:00 Urine pH 7.5 (4.6 - 8.0) 06/15/17 20:00 Ur Specific [place] 1.010 (1.005-1.030) 06/15/17 20:00 Urine Protein NEGATIVE mg/dL (NEGATIVE) 06/15/17 20:00 Urine Glucose (UA) NEGATIVE mg/dL (NEGATIVE) 06/15/17 20:00 Urine Ketones NEGATIVE mg/dL (NEGATIVE) 06/15/17 20:00 Urine Blood NEGATIVE (NEGATIVE) 06/15/17 20:00 Urine Nitrate NEGATIVE (NEGATIVE) 06/15/17 20:00 Urine Bilirubin NEGATIVE (NEGATIVE) 06/15/17 20:00 Urine Urobilinogen 0.2 E.U./dL (0.2 - 1.0) 06/15/17 20:00 Ur Leukocyte Esterase TRACE (NEGATIVE) H 06/15/17 20:00 Urine RBC NONE SEEN /hpf (0-5) 06/15/17 20:00 Urine WBC 0-2 /hpf (0-5) 06/15/17 20:00 Ur Epithelial Cells FEW /lpf (FEW) 06/15/17 20:00 Urine Bacteria OCCASIONAL /hpf (NONE SEEN) 06/15/17 20:00 Valproic Acid 27.9 ug/mL (50.0-100.0) L 06/15/17 20:15 RPR NONREACTIVE (NONREACTIVE) 06/15/17 20:15 - Physical Exam Vitals and I&O: Vital Signs Temp 0 F 06/24/17 05:43 Pulse 73 06/23/17 20:08 Resp 20 06/23/17 20:08 BP 108/59 06/23/17 20:08 Pulse Ox 97 06/23/17 20:08 Intake & Output 06/23/17 06/24/17 06/24/17 18:59 06:59 18:59 Intake Total 900 240 Balance 900 240 Weight (lbs) 92.986 kg Intake: Oral 900 240 Other: # Voids 3 2 # Bowel Movements 1 0 Active Medications: Current Medications Acetaminophen (Tylenol) 650 mg PO Q4HR PRN PRN Reason: Mild Pain / Temp above 100 Stop: 08/14/17 23:19 Artificial Tears (Artificial Tears Ophth Soln) 2 drop EACH EYE BID [facility] Stop: 08/15/17 08:59 Last Admin: 06/23/17 18:37 Dose: 2 drop Cholecalciferol (Vitamin D3) 1,000 iu PO BID [facility] Stop: 08/15/17 08:59 Last Admin: 06/23/17 18:10 Dose: 1,000 iu Divalproex Sodium (Depakote Dr) 250 mg PO Q12H KENZIE PRN Reason: Protocol Stop: 08/15/17 08:59 Last Admin: 06/23/17 12:08 Dose: Not Given Docusate Sodium (Colace) 100 mg PO BID [facility] Stop: 08/15/17 08:59 Last Admin: 06/23/17 18:10 Dose: 100 mg Furosemide (Lasix) 20 mg PO DAILY [facility] Stop: 08/15/17 08:59 Last Admin: 06/23/17 09:08 Dose: Not Given Ibuprofen (Motrin) 600 mg PO Q8H PRN PRN Reason: Pain (Moderate) Stop: 08/14/17 22:59 Lisinopril (Zestril) 5 mg PO DAILY [facility] Stop: 08/15/17 08:59 Last Admin: 06/23/17 09:09 Dose: Not Given Lorazepam (Ativan) 0.5 mg PO Q12H KENZIE PRN Reason: Protocol Stop: 08/15/17 08:59 Last Admin: 06/23/17 08:53 Dose: 0.5 mg Potassium Chloride (Klor-Con) 20 meq PO DAILY [facility] Stop: 08/15/17 08:59 Last Admin: 06/23/17 08:53 Dose: 20 meq Quetiapine Fumarate (Seroquel) 200 mg PO Q12H KENZIE PRN Reason: Protocol Stop: 08/15/17 08:59 Last Admin: 06/23/17 08:53 Dose: Not Given Vitamin B Complex/Vit C/Folic Acid (Vitamin B Complex W/Vitamin C) 1 tab PO DAILY [facility] Stop: 08/15/17 08:59 Last Admin: 06/23/17 08:53 Dose: 1 tab General: Alert, Other (Confused) HEENT: Atraumatic Neck: Supple Cardiovascular: Regular rate Lungs: Clear to auscultation Abdomen: Bowel sounds Neurological: Normal gait Skin: Other (Warm and dry) Psych/Mental Status: Other (Confused, not oriented) - Procedures Procedures: Procedures Procedure Code Date [facility] UNILAT SALPINGO-OOPHORECTOMY 65.49 05/27/98 REMOVAL OF OVARY/TUBE(S) 06330 05/27/98 Assessment/Plan - Assessment Assessment: Patient is awake, alert, agitated at moments. Dx: increased in agitation, HTN. - Plan Plan: Patient under Psychiatric care, will continue with SNF meds. Will continue to monitor. Nutritional Asmnt/Malnutr-PDOC - Dietary Evaluation Malnutrition Findings (Please click <Entered> for more info): Nutritional Asmnt/Malnutrition Start: 06/20/17 15: 46 Text: Status: Complete Freq: Document 06/20/17 15:46 DOMINGA (Rec: 06/20/17 15:56 LCHENTracie [email or web address]) Nutritional Asmnt/Malnutrition Patient General Information Nutritional Screening Moderate Risk Diagnosis psychosis Pertinent Medical Hx/Surgical Hx CAD, HTN Subjective Information Pt seen sitting on bed at the time of visit, awake and alert . Pt reported good appetite, PO intake 100%, likes the food , no coffee but likes tea. Current Diet Order/ Nutrition Support low sodium Pertinent Medications vitamin D3, colace, lasix, kcl , seroquel, vitamin B complex/ visit C/folic acid Pertinent Labs 06/15 nutrition related labs WNL Nutritional Hx/Data Height 1.7 m Height (Calculated Centimeters) 170.2 Current Weight (lbs) 92.986 kg Weight (Calculated Kilograms) 93.0 Weight (Calculated Grams) 06243.4 [place] Body Weight 148 % [place] Body Weight 139 Body Mass Index (BMI) 32.1 Weight Status Obese GI Symptoms GI Symptoms None Last BM 06/19 Difficult in: None Skin Integrity/Comment: swelling BLE, intact Current %PO Good (75-100%) Estimated Nutritional Goals BEE in Kcals: Adj wt of IBW Calories/Kcals/Kg 25-30 based on adj wt 74kg Kcals Calculated 3340-2951 Protein: Adj wt of IBW Protein g/k Protein Calculated 74 Fluid: ml [id number] Nutritional Problem No current Nutrition Prob Problem N/A Malnutrition Alert Protein-Calorie Malnutrition N/A Is there a minimum of two criteria No selected? Query Text:Check all the applicable criteria. A minimum of two criteria are recommended for diagnosis of either severe or non-severe malnutrition. Intervention/Recommendation Comments 1. Continue with current diet as ordered. Notified dietary manager and updated food preference. 2. Monitor PO intake, wt, labs and skin integrity 3. F/U as low risk in 7 days, 06/27 Expected Outcomes/Goals Expected Outcomes/Goals 1. PO intake to meet at least 75% of nutritional needs. 2. Wt stability, skin to remain intact, labs WNL
[2017-06-24] MEDS: Vitamin B Complex w/Vitamin C Tab PO SCH (09:43)
[2017-06-24] MEDS: Potassium Chloride 20 mEq ER Tab PO SCH (09:44)
--- NOTE | 2017-06-24 12:02 | Progress Notes ---
DATE: 06/24/2017 Staff was spoken to. The patient is interviewed. Mood is noted to be irritable. Affect is constricted. The patient is pacing on the unit and has been reluctant to comply with the medications. No side effects to medications are noted at this time. The patient has been pacing and stating that I need to call her sister to get the consent for the medication. The patient has no impulsivity. Needs to be redirected. JOB# [id number]
[2017-06-25] MEDS: Vitamin B Complex w/Vitamin C Tab PO SCH (09:45)
[2017-06-25] MEDS: Potassium Chloride 20 mEq ER Tab PO SCH (09:45)
[2017-06-25] MEDS: Polyvinyl Alcohol Ophth Soln 15 mL Bottle EACH EYE SCH ×2 (09:59→17:20)
--- NOTE | 2017-06-25 14:48 | General Progress Note ---
Subjective - Review of Systems Service Date: 06/25/17 Subjective: I am OK. Objective - Results Result Diagrams: 06/15/17 20:15 06/15/17 20:15 Recent Labs: Laboratory Last Values WBC 6.3 Th/cmm (4.8-10.8) 06/15/17 20:15 RBC 4.39 Mil/cmm (3.80-5.10) 06/15/17 20:15 Hgb 13.7 gm/dL (12-16) 06/15/17 20:15 Hct 39.5 % (41.0-60) L 06/15/17 20:15 MCV 89.9 fl (81-100) 06/15/17 20:15 MCH 31.2 pg (27.0-31.0) H 06/15/17 20:15 MCHC Differential 34.7 pg (28.0-36.0) 06/15/17 20:15 RDW 12.2 % (11.5-20.0) 06/15/17 20:15 Plt Count 271 Th/cmm (150-400) 06/15/17 20:15 MPV 9.0 fl 06/15/17 20:15 Neutrophils % 72.6 % (40.0-80.0) 06/15/17 20:15 Lymphocytes % 13.4 % (20.0-50.0) L 06/15/17 20:15 Monocytes % 8.7 % (2.0-10.0) 06/15/17 20:15 Eosinophils % 4.3 % (0.0-5.0) 06/15/17 20:15 Basophils % 1.0 % (0.0-2.0) 06/15/17 20:15 Sodium 137 mEq/L (136-145) 06/15/17 20:15 Potassium 3.6 mEq/L (3.5-5.1) 06/15/17 20:15 Chloride 104 mEq/L (98-107) 06/15/17 20:15 Carbon Dioxide 27.7 mEq/L (21.0-31.0) 06/15/17 20:15 Anion Gap 8.9 (7.0-16.0) 06/15/17 20:15 BUN 14 mg/dL (7-25) 06/15/17 20:15 Creatinine 0.9 mg/dL (0.6-1.2) 06/15/17 20:15 Est GFR ( Amer) > 60.0 ml/min (>90) 06/15/17 20:15 Est GFR (Non-Af Amer) > 60.0 ml/min 06/15/17 20:15 BUN/Creatinine Ratio 15.6 06/15/17 20:15 Glucose 97 mg/dL (70-105) 06/15/17 20:15 Calcium 8.6 mg/dL (8.6-10.3) 06/15/17 20:15 Total Bilirubin 0.6 mg/dL (0.3-1.0) 06/15/17 20:15 AST 19 U/L (13-39) 06/15/17 20:15 ALT 17 U/L (7-52) 06/15/17 20:15 Alkaline Phosphatase 53 U/L (34-104) 06/15/17 20:15 Total Protein 5.9 gm/dL (6.0-8.3) L 06/15/17 20:15 Albumin 3.7 gm/dL (3.7-5.3) 06/15/17 20:15 Globulin 2.2 gm/dL 06/15/17 20:15 Albumin/Globulin Ratio 1.7 (1.0-1.8) 06/15/17 20:15 TSH 2.66 uIU/ml (0.34-5.60) 06/15/17 20:15 Urine Source RANDOM 06/15/17 20:00 Urine Color YELLOW 06/15/17 20:00 Urine Clarity CLEAR (CLEAR) 06/15/17 20:00 Urine pH 7.5 (4.6 - 8.0) 06/15/17 20:00 Ur Specific [place] 1.010 (1.005-1.030) 06/15/17 20:00 Urine Protein NEGATIVE mg/dL (NEGATIVE) 06/15/17 20:00 Urine Glucose (UA) NEGATIVE mg/dL (NEGATIVE) 06/15/17 20:00 Urine Ketones NEGATIVE mg/dL (NEGATIVE) 06/15/17 20:00 Urine Blood NEGATIVE (NEGATIVE) 06/15/17 20:00 Urine Nitrate NEGATIVE (NEGATIVE) 06/15/17 20:00 Urine Bilirubin NEGATIVE (NEGATIVE) 06/15/17 20:00 Urine Urobilinogen 0.2 E.U./dL (0.2 - 1.0) 06/15/17 20:00 Ur Leukocyte Esterase TRACE (NEGATIVE) H 06/15/17 20:00 Urine RBC NONE SEEN /hpf (0-5) 06/15/17 20:00 Urine WBC 0-2 /hpf (0-5) 06/15/17 20:00 Ur Epithelial Cells FEW /lpf (FEW) 06/15/17 20:00 Urine Bacteria OCCASIONAL /hpf (NONE SEEN) 06/15/17 20:00 Valproic Acid 27.9 ug/mL (50.0-100.0) L 06/15/17 20:15 RPR NONREACTIVE (NONREACTIVE) 06/15/17 20:15 - Physical Exam Vitals and I&O: Vital Signs Temp 97.9 F 06/25/17 06:03 Pulse 52 06/25/17 09:46 Resp 20 06/25/17 06:03 BP 106/50 06/25/17 09:46 Pulse Ox 100 06/25/17 06:03 Intake & Output 06/24/17 06/25/17 06/25/17 18:59 06:59 18:59 Intake Total 1200 600 Balance 1200 600 Intake: Oral 1200 600 Other: # Voids 3 1 # Bowel Movements 1 0 Active Medications: Current Medications Acetaminophen (Tylenol) 650 mg PO Q4HR PRN PRN Reason: Mild Pain / Temp above 100 Stop: 08/14/17 23:19 Artificial Tears (Artificial Tears Ophth Soln) 2 drop EACH EYE BID [facility] Stop: 08/15/17 08:59 Last Admin: 06/25/17 09:59 Dose: 2 drop Cholecalciferol (Vitamin D3) 1,000 iu PO BID [facility] Stop: 08/15/17 08:59 Last Admin: 06/25/17 09:44 Dose: 1,000 iu Divalproex Sodium (Depakote Dr) 250 mg PO Q12H [facility] PRN Reason: Protocol Stop: 08/15/17 08:59 Last Admin: 06/25/17 12:05 Dose: 250 mg Docusate Sodium (Colace) 100 mg PO BID [facility] Stop: 08/15/17 08:59 Last Admin: 06/25/17 09:47 Dose: Not Given Furosemide (Lasix) 20 mg PO DAILY [facility] Stop: 08/15/17 08:59 Last Admin: 06/25/17 09:46 Dose: Not Given Ibuprofen (Motrin) 600 mg PO Q8H PRN PRN Reason: Pain (Moderate) Stop: 08/14/17 22:59 Lisinopril (Zestril) 5 mg PO DAILY [facility] Stop: 08/15/17 08:59 Last Admin: 06/25/17 09:46 Dose: Not Given Lorazepam (Ativan) 0.5 mg PO Q12H [facility] PRN Reason: Protocol Stop: 08/15/17 08:59 Last Admin: 06/25/17 09:44 Dose: 0.5 mg Potassium Chloride (Klor-Con) 20 meq PO DAILY [facility] Stop: 08/15/17 08:59 Last Admin: 06/25/17 09:45 Dose: 20 meq Quetiapine Fumarate (Seroquel) 200 mg PO Q12H [facility] PRN Reason: Protocol Stop: 08/15/17 08:59 Last Admin: 06/25/17 09:45 Dose: 200 mg Vitamin B Complex/Vit C/Folic Acid (Vitamin B Complex W/Vitamin C) 1 tab PO DAILY [facility] Stop: 08/15/17 08:59 Last Admin: 06/25/17 09:45 Dose: 1 tab General: Alert, Other (Confused) HEENT: Atraumatic Neck: Supple Cardiovascular: Regular rate Lungs: Clear to auscultation Abdomen: Bowel sounds Neurological: Normal gait Skin: Other (Warm and dry) Psych/Mental Status: Other (Confused, not oriented) - Procedures Procedures: Procedures Procedure Code Date [facility] UNILAT SALPINGO-OOPHORECTOMY 65.49 05/27/98 REMOVAL OF OVARY/TUBE(S) 14804 05/27/98 Assessment/Plan - Assessment Assessment: Patient is awake, alert, agitated at moments. Dx: increased in agitation, HTN. - Plan Plan: Patient under Psychiatric care, will continue with SNF meds. Will continue to monitor. Nutritional Asmnt/Malnutr-PDOC - Dietary Evaluation Malnutrition Findings (Please click <Entered> for more info): Nutritional Asmnt/Malnutrition Start: 06/20/17 15: 46 Text: Status: Complete Freq: Document 06/20/17 15:46 DOMINGA (Rec: 06/20/17 15:56 LCHENG [email or web address]) Nutritional Asmnt/Malnutrition Patient General Information Nutritional Screening Moderate Risk Diagnosis psychosis Pertinent Medical Hx/Surgical Hx CAD, HTN Subjective Information Pt seen sitting on bed at the time of visit, awake and alert . Pt reported good appetite, PO intake 100%, likes the food , no coffee but likes tea. Current Diet Order/ Nutrition Support low sodium Pertinent Medications vitamin D3, colace, lasix, kcl , seroquel, vitamin B complex/ visit C/folic acid Pertinent Labs 06/15 nutrition related labs WNL Nutritional Hx/Data Height 1.7 m Height (Calculated Centimeters) 170.2 Current Weight (lbs) 92.986 kg Weight (Calculated Kilograms) 93.0 Weight (Calculated Grams) 23248.4 [place] Body Weight 148 % [place] Body Weight 139 Body Mass Index (BMI) 32.1 Weight Status Obese GI Symptoms GI Symptoms None Last BM 06/19 Difficult in: None Skin Integrity/Comment: swelling BLE, intact Current %PO Good (75-100%) Estimated Nutritional Goals BEE in Kcals: Adj wt of IBW Calories/Kcals/Kg 25-30 based on adj wt 74kg Kcals Calculated 6466-3220 Protein: Adj wt of IBW Protein g/k Protein Calculated 74 Fluid: ml 0022-9632 Nutritional Problem No current Nutrition Prob Problem N/A Malnutrition Alert Protein-Calorie Malnutrition N/A Is there a minimum of two criteria No selected? Query Text:Check all the applicable criteria. A minimum of two criteria are recommended for diagnosis of either severe or non-severe malnutrition. Intervention/Recommendation Comments 1. Continue with current diet as ordered. Notified dietetics teacher and updated food preference. 2. Monitor PO intake, wt, labs and skin integrity 3. F/U as low risk in 7 days, 06/27 Expected Outcomes/Goals Expected Outcomes/Goals 1. PO intake to meet at least 75% of nutritional needs. 2. Wt stability, skin to remain intact, labs WNL
--- NOTE | 2017-06-25 16:53 | Progress Notes ---
DATE: 06/25/2017 PSYCHIATRIC PROGRESS NOTE SUBJECTIVE: Staff was spoken to. The patient is interviewed. Mood is noted to be irritable. Affect is constricted. Insight and judgment are noted to be still impaired. Impulse control seems to be poor. Coping skills are also noted to be poor. The patient has been having difficult time to cope with the stress, continues to be very paranoid and pacing on the unit. ASSESSMENT: The patient is still psychotic. PLAN: To continue the patient with the supportive therapy and followup. [facility]# [id number]
--- NOTE | 2017-06-26 08:29 | General Progress Note ---
Subjective - Review of Systems Service Date: 06/26/17 Subjective: I am OK. Objective - Results Result Diagrams: 06/15/17 20:15 06/15/17 20:15 Recent Labs: Laboratory Last Values WBC 6.3 Th/cmm (4.8-10.8) 06/15/17 20:15 RBC 4.39 Mil/cmm (3.80-5.10) 06/15/17 20:15 Hgb 13.7 gm/dL (12-16) 06/15/17 20:15 Hct 39.5 % (41.0-60) L 06/15/17 20:15 MCV 89.9 fl (81-100) 06/15/17 20:15 MCH 31.2 pg (27.0-31.0) H 06/15/17 20:15 MCHC Differential 34.7 pg (28.0-36.0) 06/15/17 20:15 RDW 12.2 % (11.5-20.0) 06/15/17 20:15 Plt Count 271 Th/cmm (150-400) 06/15/17 20:15 MPV 9.0 fl 06/15/17 20:15 Neutrophils % 72.6 % (40.0-80.0) 06/15/17 20:15 Lymphocytes % 13.4 % (20.0-50.0) L 06/15/17 20:15 Monocytes % 8.7 % (2.0-10.0) 06/15/17 20:15 Eosinophils % 4.3 % (0.0-5.0) 06/15/17 20:15 Basophils % 1.0 % (0.0-2.0) 06/15/17 20:15 Sodium 137 mEq/L (136-145) 06/15/17 20:15 Potassium 3.6 mEq/L (3.5-5.1) 06/15/17 20:15 Chloride 104 mEq/L (98-107) 06/15/17 20:15 Carbon Dioxide 27.7 mEq/L (21.0-31.0) 06/15/17 20:15 Anion Gap 8.9 (7.0-16.0) 06/15/17 20:15 BUN 14 mg/dL (7-25) 06/15/17 20:15 Creatinine 0.9 mg/dL (0.6-1.2) 06/15/17 20:15 Est GFR ( Amer) > 60.0 ml/min (>90) 06/15/17 20:15 Est GFR (Non-Af Amer) > 60.0 ml/min 06/15/17 20:15 BUN/Creatinine Ratio 15.6 06/15/17 20:15 Glucose 97 mg/dL (70-105) 06/15/17 20:15 Calcium 8.6 mg/dL (8.6-10.3) 06/15/17 20:15 Total Bilirubin 0.6 mg/dL (0.3-1.0) 06/15/17 20:15 AST 19 U/L (13-39) 06/15/17 20:15 ALT 17 U/L (7-52) 06/15/17 20:15 Alkaline Phosphatase 53 U/L (34-104) 06/15/17 20:15 Total Protein 5.9 gm/dL (6.0-8.3) L 06/15/17 20:15 Albumin 3.7 gm/dL (3.7-5.3) 06/15/17 20:15 Globulin 2.2 gm/dL 06/15/17 20:15 Albumin/Globulin Ratio 1.7 (1.0-1.8) 06/15/17 20:15 TSH 2.66 uIU/ml (0.34-5.60) 06/15/17 20:15 Urine Source RANDOM 06/15/17 20:00 Urine Color YELLOW 06/15/17 20:00 Urine Clarity CLEAR (CLEAR) 06/15/17 20:00 Urine pH 7.5 (4.6 - 8.0) 06/15/17 20:00 Ur Specific [place] 1.010 (1.005-1.030) 06/15/17 20:00 Urine Protein NEGATIVE mg/dL (NEGATIVE) 06/15/17 20:00 Urine Glucose (UA) NEGATIVE mg/dL (NEGATIVE) 06/15/17 20:00 Urine Ketones NEGATIVE mg/dL (NEGATIVE) 06/15/17 20:00 Urine Blood NEGATIVE (NEGATIVE) 06/15/17 20:00 Urine Nitrate NEGATIVE (NEGATIVE) 06/15/17 20:00 Urine Bilirubin NEGATIVE (NEGATIVE) 06/15/17 20:00 Urine Urobilinogen 0.2 E.U./dL (0.2 - 1.0) 06/15/17 20:00 Ur Leukocyte Esterase TRACE (NEGATIVE) H 06/15/17 20:00 Urine RBC NONE SEEN /hpf (0-5) 06/15/17 20:00 Urine WBC 0-2 /hpf (0-5) 06/15/17 20:00 Ur Epithelial Cells FEW /lpf (FEW) 06/15/17 20:00 Urine Bacteria OCCASIONAL /hpf (NONE SEEN) 06/15/17 20:00 Valproic Acid 27.9 ug/mL (50.0-100.0) L 06/15/17 20:15 RPR NONREACTIVE (NONREACTIVE) 06/15/17 20:15 - Physical Exam Vitals and I&O: Vital Signs Temp 99.1 F 06/26/17 05:55 Pulse 72 06/26/17 05:55 Resp 20 06/26/17 05:55 BP 113/66 06/26/17 05:55 Pulse Ox 95 06/26/17 05:55 Intake & Output 06/25/17 06/26/17 06/26/17 18:59 06:59 18:59 Intake Total 900 600 Balance 900 600 Intake: Oral 900 600 Other: # Voids 4 2 # Bowel Movements 1 0 Active Medications: Current Medications Acetaminophen (Tylenol) 650 mg PO Q4HR PRN PRN Reason: Mild Pain / Temp above 100 Stop: 08/14/17 23:19 Artificial Tears (Artificial Tears Ophth Soln) 2 drop EACH EYE BID [facility] Stop: 08/15/17 08:59 Last Admin: 06/25/17 17:20 Dose: 2 drop Cholecalciferol (Vitamin D3) 1,000 iu PO BID [facility] Stop: 08/15/17 08:59 Last Admin: 06/25/17 17:20 Dose: 1,000 iu Divalproex Sodium (Depakote Dr) 250 mg PO Q12H [facility] PRN Reason: Protocol Stop: 08/15/17 08:59 Last Admin: 06/25/17 23:43 Dose: Not Given Docusate Sodium (Colace) 100 mg PO BID [facility] Stop: 08/15/17 08:59 Last Admin: 06/25/17 17:20 Dose: 100 mg Furosemide (Lasix) 20 mg PO DAILY [facility] Stop: 08/15/17 08:59 Last Admin: 06/25/17 09:46 Dose: Not Given Ibuprofen (Motrin) 600 mg PO Q8H PRN PRN Reason: Pain (Moderate) Stop: 08/14/17 22:59 Lisinopril (Zestril) 5 mg PO DAILY [facility] Stop: 08/15/17 08:59 Last Admin: 06/25/17 09:46 Dose: Not Given Lorazepam (Ativan) 0.5 mg PO Q12H [facility] PRN Reason: Protocol Stop: 08/15/17 08:59 Last Admin: 06/25/17 21:16 Dose: Not Given Potassium Chloride (Klor-Con) 20 meq PO DAILY [facility] Stop: 08/15/17 08:59 Last Admin: 06/25/17 09:45 Dose: 20 meq Quetiapine Fumarate (Seroquel) 200 mg PO Q12H [facility] PRN Reason: Protocol Stop: 08/15/17 08:59 Last Admin: 06/25/17 21:16 Dose: Not Given Vitamin B Complex/Vit C/Folic Acid (Vitamin B Complex W/Vitamin C) 1 tab PO DAILY [facility] Stop: 08/15/17 08:59 Last Admin: 06/25/17 09:45 Dose: 1 tab General: Alert, Other (Confused) HEENT: Atraumatic Neck: Supple Cardiovascular: Regular rate Lungs: Clear to auscultation Abdomen: Bowel sounds Neurological: Normal gait Skin: Other (Warm and dry) Psych/Mental Status: Other (Confused, not oriented) - Procedures Procedures: Procedures Procedure Code Date [facility] UNILAT SALPINGO-OOPHORECTOMY 65.49 05/27/98 REMOVAL OF OVARY/TUBE(S) 69993 05/27/98 Assessment/Plan - Assessment Assessment: Patient is awake, alert, agitated at moments. Dx: increased in agitation, HTN. - Plan Plan: Patient under Psychiatric care, will continue with SNF meds. Will continue to monitor. Nutritional Asmnt/Malnutr-PDOC - Dietary Evaluation Malnutrition Findings (Please click <Entered> for more info): Nutritional Asmnt/Malnutrition Start: 06/20/17 15: 46 Text: Status: Complete Freq: Document 06/20/17 15:46 LCHENG (Rec: 06/20/17 15:56 LCHENG [email or web address]) Nutritional Asmnt/Malnutrition Patient General Information Nutritional Screening Moderate Risk Diagnosis psychosis Pertinent Medical Hx/Surgical Hx CAD, HTN Subjective Information Pt seen sitting on bed at the time of visit, awake and alert . Pt reported good appetite, PO intake 100%, likes the food , no coffee but likes tea. Current Diet Order/ Nutrition Support low sodium Pertinent Medications vitamin D3, colace, lasix, kcl , seroquel, vitamin B complex/ visit C/folic acid Pertinent Labs 06/15 nutrition related labs WNL Nutritional Hx/Data Height 1.7 m Height (Calculated Centimeters) 170.2 Current Weight (lbs) 92.986 kg Weight (Calculated Kilograms) 93.0 Weight (Calculated Grams) 02526.4 [place] Body Weight 148 % [place] Body Weight 139 Body Mass Index (BMI) 32.1 Weight Status Obese GI Symptoms GI Symptoms None Last BM 06/19 Difficult in: None Skin Integrity/Comment: swelling BLE, intact Current %PO Good (75-100%) Estimated Nutritional Goals BEE in Kcals: Adj wt of IBW Calories/Kcals/Kg 25-30 based on adj wt 74kg Kcals Calculated 4235-5023 Protein: Adj wt of IBW Protein g/k Protein Calculated 74 Fluid: ml 4279-1422 Nutritional Problem No current Nutrition Prob Problem N/A Malnutrition Alert Protein-Calorie Malnutrition N/A Is there a minimum of two criteria No selected? Query Text:Check all the applicable criteria. A minimum of two criteria are recommended for diagnosis of either severe or non-severe malnutrition. Intervention/Recommendation Comments 1. Continue with current diet as ordered. Notified dietary aid and updated food preference. 2. Monitor PO intake, wt, labs and skin integrity 3. F/U as low risk in 7 days, 06/27 Expected Outcomes/Goals Expected Outcomes/Goals 1. PO intake to meet at least 75% of nutritional needs. 2. Wt stability, skin to remain intact, labs WNL
[2017-06-26] MEDS: Polyvinyl Alcohol Ophth Soln 15 mL Bottle EACH EYE SCH ×2 (09:20→16:50)
[2017-06-26] MEDS: Vitamin B Complex w/Vitamin C Tab PO SCH (09:51)
[2017-06-26] MEDS: Potassium Chloride 20 mEq ER Tab PO SCH (09:51)
--- NOTE | 2017-06-26 23:33 | Progress Notes ---
DATE: 06/26/2017 Staff was spoken to. The patient is interviewed. Mood is noted to be irritable. Affect is constricted. Insight and judgment is very much impaired. Impulse control is noted to be poor. The patient has been having difficult time to cope with the stress. The patient is currently on Seroquel 200 mg twice a day and has been able to tolerate the medication. The patient is also on Depakote 250 mg twice a day. The patient is going to be closely monitored and I encouraged him to participate in the groups and verbalize the concerns. Please note that the patient is not ready to be discharged to a lower level of care yet. JOB# [id number]
--- NOTE | 2017-06-27 08:33 | General Progress Note ---
Subjective - Review of Systems Service Date: 06/27/17 Subjective: I am OK. Objective - Results Result Diagrams: 06/15/17 20:15 06/15/17 20:15 Recent Labs: Laboratory Last Values WBC 6.3 Th/cmm (4.8-10.8) 06/15/17 20:15 RBC 4.39 Mil/cmm (3.80-5.10) 06/15/17 20:15 Hgb 13.7 gm/dL (12-16) 06/15/17 20:15 Hct 39.5 % (41.0-60) L 06/15/17 20:15 MCV 89.9 fl (81-100) 06/15/17 20:15 MCH 31.2 pg (27.0-31.0) H 06/15/17 20:15 MCHC Differential 34.7 pg (28.0-36.0) 06/15/17 20:15 RDW 12.2 % (11.5-20.0) 06/15/17 20:15 Plt Count 271 Th/cmm (150-400) 06/15/17 20:15 MPV 9.0 fl 06/15/17 20:15 Neutrophils % 72.6 % (40.0-80.0) 06/15/17 20:15 Lymphocytes % 13.4 % (20.0-50.0) L 06/15/17 20:15 Monocytes % 8.7 % (2.0-10.0) 06/15/17 20:15 Eosinophils % 4.3 % (0.0-5.0) 06/15/17 20:15 Basophils % 1.0 % (0.0-2.0) 06/15/17 20:15 Sodium 137 mEq/L (136-145) 06/15/17 20:15 Potassium 3.6 mEq/L (3.5-5.1) 06/15/17 20:15 Chloride 104 mEq/L (98-107) 06/15/17 20:15 Carbon Dioxide 27.7 mEq/L (21.0-31.0) 06/15/17 20:15 Anion Gap 8.9 (7.0-16.0) 06/15/17 20:15 BUN 14 mg/dL (7-25) 06/15/17 20:15 Creatinine 0.9 mg/dL (0.6-1.2) 06/15/17 20:15 Est GFR ( Amer) > 60.0 ml/min (>90) 06/15/17 20:15 Est GFR (Non-Af Amer) > 60.0 ml/min 06/15/17 20:15 BUN/Creatinine Ratio 15.6 06/15/17 20:15 Glucose 97 mg/dL (70-105) 06/15/17 20:15 Calcium 8.6 mg/dL (8.6-10.3) 06/15/17 20:15 Total Bilirubin 0.6 mg/dL (0.3-1.0) 06/15/17 20:15 AST 19 U/L (13-39) 06/15/17 20:15 ALT 17 U/L (7-52) 06/15/17 20:15 Alkaline Phosphatase 53 U/L (34-104) 06/15/17 20:15 Total Protein 5.9 gm/dL (6.0-8.3) L 06/15/17 20:15 Albumin 3.7 gm/dL (3.7-5.3) 06/15/17 20:15 Globulin 2.2 gm/dL 06/15/17 20:15 Albumin/Globulin Ratio 1.7 (1.0-1.8) 06/15/17 20:15 TSH 2.66 uIU/ml (0.34-5.60) 06/15/17 20:15 Urine Source RANDOM 06/15/17 20:00 Urine Color YELLOW 06/15/17 20:00 Urine Clarity CLEAR (CLEAR) 06/15/17 20:00 Urine pH 7.5 (4.6 - 8.0) 06/15/17 20:00 Ur Specific [place] 1.010 (1.005-1.030) 06/15/17 20:00 Urine Protein NEGATIVE mg/dL (NEGATIVE) 06/15/17 20:00 Urine Glucose (UA) NEGATIVE mg/dL (NEGATIVE) 06/15/17 20:00 Urine Ketones NEGATIVE mg/dL (NEGATIVE) 06/15/17 20:00 Urine Blood NEGATIVE (NEGATIVE) 06/15/17 20:00 Urine Nitrate NEGATIVE (NEGATIVE) 06/15/17 20:00 Urine Bilirubin NEGATIVE (NEGATIVE) 06/15/17 20:00 Urine Urobilinogen 0.2 E.U./dL (0.2 - 1.0) 06/15/17 20:00 Ur Leukocyte Esterase TRACE (NEGATIVE) H 06/15/17 20:00 Urine RBC NONE SEEN /hpf (0-5) 06/15/17 20:00 Urine WBC 0-2 /hpf (0-5) 06/15/17 20:00 Ur Epithelial Cells FEW /lpf (FEW) 06/15/17 20:00 Urine Bacteria OCCASIONAL /hpf (NONE SEEN) 06/15/17 20:00 Valproic Acid 27.9 ug/mL (50.0-100.0) L 06/15/17 20:15 RPR NONREACTIVE (NONREACTIVE) 06/15/17 20:15 - Physical Exam Vitals and I&O: Vital Signs Temp 97.9 F 06/27/17 06:31 Pulse 74 06/27/17 06:31 Resp 20 06/27/17 06:31 BP 126/70 06/27/17 06:31 Pulse Ox 97 06/27/17 06:31 Intake & Output 06/26/17 06/27/17 06/27/17 18:59 06:59 18:59 Intake Total 1800 120 Balance 1800 120 Intake: Oral 1800 120 Other: # Voids 4 3 # Bowel Movements 0 Active Medications: Current Medications Acetaminophen (Tylenol) 650 mg PO Q4HR PRN PRN Reason: Mild Pain / Temp above 100 Stop: 08/14/17 23:19 Artificial Tears (Artificial Tears Ophth Soln) 2 drop EACH EYE BID [facility] Stop: 08/15/17 08:59 Last Admin: 06/26/17 16:50 Dose: 2 drop Cholecalciferol (Vitamin D3) 1,000 iu PO BID [facility] Stop: 08/15/17 08:59 Last Admin: 06/26/17 16:18 Dose: 1,000 iu Divalproex Sodium (Depakote Dr) 250 mg PO Q12H [facility] PRN Reason: Protocol Stop: 08/15/17 08:59 Last Admin: 06/26/17 23:21 Dose: Not Given Docusate Sodium (Colace) 100 mg PO BID [facility] Stop: 08/15/17 08:59 Last Admin: 06/26/17 16:18 Dose: 100 mg Furosemide (Lasix) 20 mg PO DAILY [facility] Stop: 08/15/17 08:59 Last Admin: 06/26/17 16:48 Dose: Not Given Ibuprofen (Motrin) 600 mg PO Q8H PRN PRN Reason: Pain (Moderate) Stop: 08/14/17 22:59 Last Admin: 06/26/17 10:26 Dose: 600 mg Lisinopril (Zestril) 5 mg PO DAILY [facility] Stop: 08/15/17 08:59 Last Admin: 06/26/17 16:49 Dose: Not Given Lorazepam (Ativan) 0.5 mg PO Q12H [facility] PRN Reason: Protocol Stop: 08/15/17 08:59 Last Admin: 06/26/17 21:12 Dose: Not Given Potassium Chloride (Klor-Con) 20 meq PO DAILY [facility] Stop: 08/15/17 08:59 Last Admin: 06/26/17 09:51 Dose: 20 meq Quetiapine Fumarate (Seroquel) 200 mg PO Q12H [facility] PRN Reason: Protocol Stop: 08/15/17 08:59 Last Admin: 06/26/17 21:12 Dose: Not Given Vitamin B Complex/Vit C/Folic Acid (Vitamin B Complex W/Vitamin C) 1 tab PO DAILY [facility] Stop: 08/15/17 08:59 Last Admin: 06/26/17 09:51 Dose: 1 tab General: Alert, Other (Confused) HEENT: Atraumatic Neck: Supple Cardiovascular: Regular rate Lungs: Clear to auscultation Abdomen: Bowel sounds Neurological: Normal gait Skin: Other (Warm and dry) Psych/Mental Status: Other (Confused, not oriented) - Procedures Procedures: Procedures Procedure Code Date [facility] UNILAT SALPINGO-OOPHORECTOMY 65.49 05/27/98 REMOVAL OF OVARY/TUBE(S) 18988 05/27/98 Assessment/Plan - Assessment Assessment: Patient is awake, alert, agitated at moments. Occasionally refusing meds. Dx: increased in agitation, HTN. - Plan Plan: Patient under Psychiatric care, will continue with SNF meds. Will continue to monitor. Nutritional Asmnt/Malnutr-PDOC - Dietary Evaluation Malnutrition Findings (Please click <Entered> for more info): Nutritional Asmnt/Malnutrition Start: 06/20/17 15: 46 Text: Status: Complete Freq: Document 06/20/17 15:46 LCHENG (Rec: 06/20/17 15:[address] [facility] [id number]) Nutritional Asmnt/Malnutrition Patient General Information Nutritional Screening Moderate Risk Diagnosis psychosis Pertinent Medical Hx/Surgical Hx CAD, HTN Subjective Information Pt seen sitting on bed at the time of visit, awake and alert . Pt reported good appetite, PO intake 100%, likes the food , no coffee but likes tea. Current Diet Order/ Nutrition Support low sodium Pertinent Medications vitamin D3, colace, lasix, kcl , seroquel, vitamin B complex/ visit C/folic acid Pertinent Labs 06/15 nutrition related labs WNL Nutritional Hx/Data Height 1.7 m Height (Calculated Centimeters) 170.2 Current Weight (lbs) 92.986 kg Weight (Calculated Kilograms) 93.0 Weight (Calculated Grams) 59453.4 Sullivan Body Weight 148 % Sullivan Body Weight 139 Body Mass Index (BMI) 32.1 Weight Status Obese GI Symptoms GI Symptoms None Last BM 06/19 Difficult in: None Skin Integrity/Comment: swelling BLE, intact Current %PO Good (75-100%) Estimated Nutritional Goals BEE in Kcals: Adj wt of IBW Calories/Kcals/Kg 25-30 based on adj wt 74kg Kcals Calculated 7442-5775 Protein: Adj wt of IBW Protein g/k Protein Calculated 74 Fluid: ml 7664-5656 Nutritional Problem No current Nutrition Prob Problem N/A Malnutrition Alert Protein-Calorie Malnutrition N/A Is there a minimum of two criteria No selected? Query Text:Check all the applicable criteria. A minimum of two criteria are recommended for diagnosis of either severe or non-severe malnutrition. Intervention/Recommendation Comments 1. Continue with current diet as ordered. Notified dietitian and updated food preference. 2. Monitor PO intake, wt, labs and skin integrity 3. F/U as low risk in 7 days, 06/27 Expected Outcomes/Goals Expected Outcomes/Goals 1. PO intake to meet at least 75% of nutritional needs. 2. Wt stability, skin to remain intact, labs WNL
[2017-06-27] MEDS: Polyvinyl Alcohol Ophth Soln 15 mL Bottle EACH EYE SCH (09:11)
[2017-06-27] MEDS: Potassium Chloride 20 mEq ER Tab PO SCH (09:15)
[2017-06-27] MEDS: Vitamin B Complex w/Vitamin C Tab PO SCH (09:15)
--- NOTE | 2017-06-27 14:46 | Progress Notes ---
DATE: 06/27/2017 SUBJECTIVE: Staff was spoken to. The patient is interviewed. Mood is irritable. Affect is constricted. The patient is isolative and withdrawn, does not want to get out of the room today. No side effects to medications are noted. The patient is currently on Depakote 250 mg twice a day and Seroquel 200 mg twice a day and has been able to tolerate the medications. No side effects to medications are noted. ASSESSMENT: The patient is still not ready to be discharged to a lower level of care yet. JOB# [id number]
[2017-06-28] MEDS: Polyvinyl Alcohol Ophth Soln 15 mL Bottle EACH EYE SCH ×2 (08:00→16:03)
[2017-06-28] MEDS: Vitamin B Complex w/Vitamin C Tab PO SCH (08:01)
[2017-06-28] MEDS: Potassium Chloride 20 mEq ER Tab PO SCH (08:01)
--- NOTE | 2017-06-28 08:45 | General Progress Note ---
Subjective - Review of Systems Service Date: 06/28/17 Subjective: I want go home Objective - Results Result Diagrams: 06/15/17 20:15 06/15/17 20:15 Recent Labs: Laboratory Last Values WBC 6.3 Th/cmm (4.8-10.8) 06/15/17 20:15 RBC 4.39 Mil/cmm (3.80-5.10) 06/15/17 20:15 Hgb 13.7 gm/dL (12-16) 06/15/17 20:15 Hct 39.5 % (41.0-60) L 06/15/17 20:15 MCV 89.9 fl (81-100) 06/15/17 20:15 MCH 31.2 pg (27.0-31.0) H 06/15/17 20:15 MCHC Differential 34.7 pg (28.0-36.0) 06/15/17 20:15 RDW 12.2 % (11.5-20.0) 06/15/17 20:15 Plt Count 271 Th/cmm (150-400) 06/15/17 20:15 MPV 9.0 fl 06/15/17 20:15 Neutrophils % 72.6 % (40.0-80.0) 06/15/17 20:15 Lymphocytes % 13.4 % (20.0-50.0) L 06/15/17 20:15 Monocytes % 8.7 % (2.0-10.0) 06/15/17 20:15 Eosinophils % 4.3 % (0.0-5.0) 06/15/17 20:15 Basophils % 1.0 % (0.0-2.0) 06/15/17 20:15 Sodium 137 mEq/L (136-145) 06/15/17 20:15 Potassium 3.6 mEq/L (3.5-5.1) 06/15/17 20:15 Chloride 104 mEq/L (98-107) 06/15/17 20:15 Carbon Dioxide 27.7 mEq/L (21.0-31.0) 06/15/17 20:15 Anion Gap 8.9 (7.0-16.0) 06/15/17 20:15 BUN 14 mg/dL (7-25) 06/15/17 20:15 Creatinine 0.9 mg/dL (0.6-1.2) 06/15/17 20:15 Est GFR ( Amer) > 60.0 ml/min (>90) 06/15/17 20:15 Est GFR (Non-Af Amer) > 60.0 ml/min 06/15/17 20:15 BUN/Creatinine Ratio 15.6 06/15/17 20:15 Glucose 97 mg/dL (70-105) 06/15/17 20:15 Calcium 8.6 mg/dL (8.6-10.3) 06/15/17 20:15 Total Bilirubin 0.6 mg/dL (0.3-1.0) 06/15/17 20:15 AST 19 U/L (13-39) 06/15/17 20:15 ALT 17 U/L (7-52) 06/15/17 20:15 Alkaline Phosphatase 53 U/L (34-104) 06/15/17 20:15 Total Protein 5.9 gm/dL (6.0-8.3) L 06/15/17 20:15 Albumin 3.7 gm/dL (3.7-5.3) 06/15/17 20:15 Globulin 2.2 gm/dL 06/15/17 20:15 Albumin/Globulin Ratio 1.7 (1.0-1.8) 06/15/17 20:15 TSH 2.66 uIU/ml (0.34-5.60) 06/15/17 20:15 Urine Source RANDOM 06/15/17 20:00 Urine Color YELLOW 06/15/17 20:00 Urine Clarity CLEAR (CLEAR) 06/15/17 20:00 Urine pH 7.5 (4.6 - 8.0) 06/15/17 20:00 Ur Specific [place] 1.010 (1.005-1.030) 06/15/17 20:00 Urine Protein NEGATIVE mg/dL (NEGATIVE) 06/15/17 20:00 Urine Glucose (UA) NEGATIVE mg/dL (NEGATIVE) 06/15/17 20:00 Urine Ketones NEGATIVE mg/dL (NEGATIVE) 06/15/17 20:00 Urine Blood NEGATIVE (NEGATIVE) 06/15/17 20:00 Urine Nitrate NEGATIVE (NEGATIVE) 06/15/17 20:00 Urine Bilirubin NEGATIVE (NEGATIVE) 06/15/17 20:00 Urine Urobilinogen 0.2 E.U./dL (0.2 - 1.0) 06/15/17 20:00 Ur Leukocyte Esterase TRACE (NEGATIVE) H 06/15/17 20:00 Urine RBC NONE SEEN /hpf (0-5) 06/15/17 20:00 Urine WBC 0-2 /hpf (0-5) 06/15/17 20:00 Ur Epithelial Cells FEW /lpf (FEW) 06/15/17 20:00 Urine Bacteria OCCASIONAL /hpf (NONE SEEN) 06/15/17 20:00 Valproic Acid 27.9 ug/mL (50.0-100.0) L 06/15/17 20:15 RPR NONREACTIVE (NONREACTIVE) 06/15/17 20:15 - Physical Exam Vitals and I&O: Vital Signs Temp 97.5 F 06/28/17 06:27 Pulse 72 06/28/17 06:27 Resp 18 06/28/17 06:27 BP 115/65 06/28/17 06:27 Pulse Ox 97 06/28/17 06:27 Intake & Output 06/27/17 06/28/17 06/28/17 18:59 06:59 18:59 Intake Total 1200 120 Balance 1200 120 Intake: Oral 1200 120 Other: # Voids 3 3 # Bowel Movements 1 Active Medications: Current Medications Acetaminophen (Tylenol) 650 mg PO Q4HR PRN PRN Reason: Mild Pain / Temp above 100 Stop: 08/14/17 23:19 Artificial Tears (Artificial Tears Ophth Soln) 2 drop EACH EYE BID [facility] Stop: 08/15/17 08:59 Last Admin: 06/28/17 08:00 Dose: Not Given Cholecalciferol (Vitamin D3) 1,000 iu PO BID [facility] Stop: 08/15/17 08:59 Last Admin: 06/28/17 08:00 Dose: Not Given Divalproex Sodium (Depakote Dr) 250 mg PO Q12H [facility] PRN Reason: Protocol Stop: 08/15/17 08:59 Last Admin: 06/27/17 23:21 Dose: Not Given Docusate Sodium (Colace) 100 mg PO BID [facility] Stop: 08/15/17 08:59 Last Admin: 06/28/17 08:00 Dose: Not Given Furosemide (Lasix) 20 mg PO DAILY [facility] Stop: 08/15/17 08:59 Last Admin: 06/28/17 08:00 Dose: Not Given Ibuprofen (Motrin) 600 mg PO Q8H PRN PRN Reason: Pain (Moderate) Stop: 08/14/17 22:59 Last Admin: 06/26/17 10:26 Dose: 600 mg Lisinopril (Zestril) 5 mg PO DAILY [facility] Stop: 08/15/17 08:59 Last Admin: 06/28/17 08:00 Dose: Not Given Lorazepam (Ativan) 0.5 mg PO Q12H [facility]IE PRN Reason: Protocol Stop: 08/15/17 08:59 Last Admin: 06/28/17 08:00 Dose: Not Given Potassium Chloride (Klor-Con) 20 meq PO DAILY [facility] Stop: 08/15/17 08:59 Last Admin: 06/28/17 08:01 Dose: Not Given Quetiapine Fumarate (Seroquel) 200 mg PO Q12H [facility]IE PRN Reason: Protocol Stop: 08/15/17 08:59 Last Admin: 06/28/17 08:00 Dose: Not Given Vitamin B Complex/Vit C/Folic Acid (Vitamin B Complex W/Vitamin C) 1 tab PO DAILY [facility] Stop: 08/15/17 08:59 Last Admin: 06/28/17 08:01 Dose: Not Given General: Alert, Other (Confused) HEENT: Atraumatic Neck: Supple Cardiovascular: Regular rate Lungs: Clear to auscultation Abdomen: Bowel sounds Neurological: Normal gait Skin: Other (Warm and dry) Psych/Mental Status: Other (Confused, not oriented) - Procedures Procedures: Procedures Procedure Code Date [facility] UNILAT SALPINGO-OOPHORECTOMY 65.49 05/27/98 REMOVAL OF OVARY/TUBE(S) 59052 05/27/98 Assessment/Plan - Assessment Assessment: Patient is awake, alert, agitated at moments. Occasionally refusing meds. Dx: increased in agitation, HTN. - Plan Plan: Patient under Psychiatric care, will continue with SNF meds. Will continue to monitor. Nutritional Asmnt/Malnutr-PDOC - Dietary Evaluation Malnutrition Findings (Please click <Entered> for more info): Nutritional Asmnt/Malnutrition Start: 06/20/17 15: 46 Text: Status: Complete Freq: Document 06/20/17 15:46 [facility] (Rec: 06/20/17 15:56 [facility] [email or web address]) Nutritional Asmnt/Malnutrition Patient General Information Nutritional Screening Moderate Risk Diagnosis psychosis Pertinent Medical Hx/Surgical Hx CAD, HTN Subjective Information Pt seen sitting on bed at the time of visit, awake and alert . Pt reported good appetite, PO intake 100%, likes the food , no coffee but likes tea. Current Diet Order/ Nutrition Support low sodium Pertinent Medications vitamin D3, colace, lasix, kcl , seroquel, vitamin B complex/ visit C/folic acid Pertinent Labs 06/15 nutrition related labs WNL Nutritional Hx/Data Height 1.7 m Height (Calculated Centimeters) 170.2 Current Weight (lbs) 92.986 kg Weight (Calculated Kilograms) 93.0 Weight (Calculated Grams) 20386.4 [place] Body Weight 148 % [place] Body Weight 139 Body Mass Index (BMI) 32.1 Weight Status Obese GI Symptoms GI Symptoms None Last BM 06/19 Difficult in: None Skin Integrity/Comment: swelling BLE, intact Current %PO Good (75-100%) Estimated Nutritional Goals BEE in Kcals: Adj wt of IBW Calories/Kcals/Kg 25-30 based on adj wt 74kg Kcals Calculated 7821-5188 Protein: Adj wt of IBW Protein g/k Protein Calculated 74 Fluid: ml 6131-9241 Nutritional Problem No current Nutrition Prob Problem N/A Malnutrition Alert Protein-Calorie Malnutrition N/A Is there a minimum of two criteria No selected? Query Text:Check all the applicable criteria. A minimum of two criteria are recommended for diagnosis of either severe or non-severe malnutrition. Intervention/Recommendation Comments 1. Continue with current diet as ordered. Notified didactic program in dietetics director and updated food preference. 2. Monitor PO intake, wt, labs and skin integrity 3. F/U as low risk in 7 days, 06/27 Expected Outcomes/Goals Expected Outcomes/Goals 1. PO intake to meet at least 75% of nutritional needs. 2. Wt stability, skin to remain intact, labs WNL
--- NOTE | 2017-06-28 22:04 | Progress Notes ---
DATE: 06/28/2017 SUBJECTIVE: Staff was spoken to. The patient is interviewed. Mood is noted to be irritable. Affect is constricted. The patient is currently on Depakote 250 mg twice a day and Seroquel 200 mg twice a day. The patient has been able to tolerate the medication, but the patient's impulsivity is becoming a major concern and hence it is decided to increase the frequency of the Depakote to 250 mg 3 times a day and follow the patient with the supportive therapy. The patient is not ready to be discharged to a lower level of care in view of her mood swings and psychosis. JOB# [id number]
[2017-06-29] MEDS: Polyvinyl Alcohol Ophth Soln 15 mL Bottle EACH EYE SCH ×2 (08:01→17:49)
[2017-06-29] MEDS: Vitamin B Complex w/Vitamin C Tab PO SCH (08:02)
[2017-06-29] MEDS: Potassium Chloride 20 mEq ER Tab PO SCH (08:02)
--- NOTE | 2017-06-29 10:17 | General Progress Note ---
Subjective - Review of Systems Service Date: 06/29/17 Subjective: I want go home Objective - Results Result Diagrams: 06/15/17 20:15 06/15/17 20:15 Recent Labs: Laboratory Last Values WBC 6.3 Th/cmm (4.8-10.8) 06/15/17 20:15 RBC 4.39 Mil/cmm (3.80-5.10) 06/15/17 20:15 Hgb 13.7 gm/dL (12-16) 06/15/17 20:15 Hct 39.5 % (41.0-60) L 06/15/17 20:15 MCV 89.9 fl (81-100) 06/15/17 20:15 MCH 31.2 pg (27.0-31.0) H 06/15/17 20:15 MCHC Differential 34.7 pg (28.0-36.0) 06/15/17 20:15 RDW 12.2 % (11.5-20.0) 06/15/17 20:15 Plt Count 271 Th/cmm (150-400) 06/15/17 20:15 MPV 9.0 fl 06/15/17 20:15 Neutrophils % 72.6 % (40.0-80.0) 06/15/17 20:15 Lymphocytes % 13.4 % (20.0-50.0) L 06/15/17 20:15 Monocytes % 8.7 % (2.0-10.0) 06/15/17 20:15 Eosinophils % 4.3 % (0.0-5.0) 06/15/17 20:15 Basophils % 1.0 % (0.0-2.0) 06/15/17 20:15 Sodium 137 mEq/L (136-145) 06/15/17 20:15 Potassium 3.6 mEq/L (3.5-5.1) 06/15/17 20:15 Chloride 104 mEq/L (98-107) 06/15/17 20:15 Carbon Dioxide 27.7 mEq/L (21.0-31.0) 06/15/17 20:15 Anion Gap 8.9 (7.0-16.0) 06/15/17 20:15 BUN 14 mg/dL (7-25) 06/15/17 20:15 Creatinine 0.9 mg/dL (0.6-1.2) 06/15/17 20:15 Est GFR ( Amer) > 60.0 ml/min (>90) 06/15/17 20:15 Est GFR (Non-Af Amer) > 60.0 ml/min 06/15/17 20:15 BUN/Creatinine Ratio 15.6 06/15/17 20:15 Glucose 97 mg/dL (70-105) 06/15/17 20:15 Calcium 8.6 mg/dL (8.6-10.3) 06/15/17 20:15 Total Bilirubin 0.6 mg/dL (0.3-1.0) 06/15/17 20:15 AST 19 U/L (13-39) 06/15/17 20:15 ALT 17 U/L (7-52) 06/15/17 20:15 Alkaline Phosphatase 53 U/L (34-104) 06/15/17 20:15 Total Protein 5.9 gm/dL (6.0-8.3) L 06/15/17 20:15 Albumin 3.7 gm/dL (3.7-5.3) 06/15/17 20:15 Globulin 2.2 gm/dL 06/15/17 20:15 Albumin/Globulin Ratio 1.7 (1.0-1.8) 06/15/17 20:15 TSH 2.66 uIU/ml (0.34-5.60) 06/15/17 20:15 Urine Source RANDOM 06/15/17 20:00 Urine Color YELLOW 06/15/17 20:00 Urine Clarity CLEAR (CLEAR) 06/15/17 20:00 Urine pH 7.5 (4.6 - 8.0) 06/15/17 20:00 Ur Specific [place] 1.010 (1.005-1.030) 06/15/17 20:00 Urine Protein NEGATIVE mg/dL (NEGATIVE) 06/15/17 20:00 Urine Glucose (UA) NEGATIVE mg/dL (NEGATIVE) 06/15/17 20:00 Urine Ketones NEGATIVE mg/dL (NEGATIVE) 06/15/17 20:00 Urine Blood NEGATIVE (NEGATIVE) 06/15/17 20:00 Urine Nitrate NEGATIVE (NEGATIVE) 06/15/17 20:00 Urine Bilirubin NEGATIVE (NEGATIVE) 06/15/17 20:00 Urine Urobilinogen 0.2 E.U./dL (0.2 - 1.0) 06/15/17 20:00 Ur Leukocyte Esterase TRACE (NEGATIVE) H 06/15/17 20:00 Urine RBC NONE SEEN /hpf (0-5) 06/15/17 20:00 Urine WBC 0-2 /hpf (0-5) 06/15/17 20:00 Ur Epithelial Cells FEW /lpf (FEW) 06/15/17 20:00 Urine Bacteria OCCASIONAL /hpf (NONE SEEN) 06/15/17 20:00 Valproic Acid 27.9 ug/mL (50.0-100.0) L 06/15/17 20:15 RPR NONREACTIVE (NONREACTIVE) 06/15/17 20:15 - Physical Exam Vitals and I&O: Vital Signs Temp 97.6 F 06/28/17 15:25 Pulse 72 06/28/17 15:25 Resp 20 06/28/17 20:00 BP 120/74 06/28/17 15:25 Pulse Ox 96 06/28/17 15:25 Intake & Output 06/28/17 06/29/17 06/29/17 18:59 06:59 18:59 Intake Total 1200 Balance 1200 Intake: Oral 1200 Other: # Voids 3 # Bowel Movements 1 Active Medications: Current Medications Acetaminophen (Tylenol) 650 mg PO Q4HR PRN PRN Reason: Mild Pain / Temp above 100 Stop: 08/14/17 23:19 Artificial Tears (Artificial Tears Ophth Soln) 2 drop EACH EYE BID COUNTS [facility]CLUDE 234 BEDS AT [facility] Stop: 08/15/17 08:59 Last Admin: 06/29/17 08:01 Dose: Not Given Cholecalciferol (Vitamin D3) 1,000 iu PO BID COUNTS [facility]CLUDE 234 BEDS AT [facility] Stop: 08/15/17 08:59 Last Admin: 06/29/17 08:01 Dose: Not Given Divalproex Sodium (Depakote Dr) 250 mg PO TID COUNTS INCLUDE 234 BEDS AT THE [facility] PRN Reason: Protocol Stop: 08/27/17 13:59 Last Admin: 06/29/17 08:01 Dose: Not Given Docusate Sodium (Colace) 100 mg PO BID COUNTS INCLUDE 234 BEDS AT THE [facility] Stop: 08/15/17 08:59 Last Admin: 06/29/17 08:01 Dose: Not Given Furosemide (Lasix) 20 mg PO DAILY COUNTS INCLUDE 234 BEDS AT THE [facility] Stop: 08/15/17 08:59 Last Admin: 06/29/17 08:02 Dose: Not Given Haloperidol (Haldol) 5 mg PO BID [facility]IE PRN Reason: Protocol Stop: 08/28/17 16:59 Haloperidol Lactate (Haldol) 5 mg IM BID PRN PRN Reason: Agitation Stop: 08/28/17 09:31 Ibuprofen (Motrin) 600 mg PO Q8H PRN PRN Reason: Pain (Moderate) Stop: 08/14/17 22:59 Last Admin: 06/26/17 10:26 Dose: 600 mg Lisinopril (Zestril) 5 mg PO DAILY [facility] Stop: 08/15/17 08:59 Last Admin: 06/29/17 08:02 Dose: Not Given Lorazepam (Ativan) 0.5 mg PO Q12H [facility] PRN Reason: Protocol Stop: 08/15/17 08:59 Last Admin: 06/29/17 08:01 Dose: Not Given Potassium Chloride (Klor-Con) 20 meq PO DAILY [facility] Stop: 08/15/17 08:59 Last Admin: 06/29/17 08:02 Dose: Not Given Quetiapine Fumarate (Seroquel) 200 mg PO Q12H [facility] PRN Reason: Protocol Stop: 08/15/17 08:59 Last Admin: 06/29/17 08:01 Dose: Not Given Vitamin B Complex/Vit C/Folic Acid (Vitamin B Complex W/Vitamin C) 1 tab PO DAILY [facility] Stop: 08/15/17 08:59 Last Admin: 06/29/17 08:02 Dose: Not Given General: Alert, Other (Confused) HEENT: Atraumatic Neck: Supple Cardiovascular: Regular rate Lungs: Clear to auscultation Abdomen: Bowel sounds Neurological: Normal gait Skin: Other (Warm and dry) Psych/Mental Status: Other (Confused, not oriented) - Procedures Procedures: Procedures Procedure Code Date [facility] UNILAT SALPINGO-OOPHORECTOMY 65.49 05/27/98 REMOVAL OF OVARY/TUBE(S) 21845 05/27/98 Assessment/Plan - Assessment Assessment: Patient is awake, alert, agitated at moments. Occasionally refusing meds. Dx: increased in agitation, HTN. - Plan Plan: Patient under Psychiatric care, will continue with SNF meds. Will continue to monitor. Nutritional Asmnt/Malnutr-PDOC - Dietary Evaluation Malnutrition Findings (Please click <Entered> for more info): Nutritional Asmnt/Malnutrition Start: 06/20/17 15: 46 Text: Status: Complete Freq: Document 06/20/17 15:46 [facility] (Rec: 06/20/17 15:56 [facility] [email or web address]) Nutritional Asmnt/Malnutrition Patient General Information Nutritional Screening Moderate Risk Diagnosis psychosis Pertinent Medical Hx/Surgical Hx CAD, HTN Subjective Information Pt seen sitting on bed at the time of visit, awake and alert . Pt reported good appetite, PO intake 100%, likes the food , no coffee but likes tea. Current Diet Order/ Nutrition Support low sodium Pertinent Medications vitamin D3, colace, lasix, kcl , seroquel, vitamin B complex/ visit C/folic acid Pertinent Labs 06/15 nutrition related labs WNL Nutritional Hx/Data Height 1.7 m Height (Calculated Centimeters) 170.2 Current Weight (lbs) 92.986 kg Weight (Calculated Kilograms) 93.0 Weight (Calculated Grams) 71620.4 [place] Body Weight 148 % [place] Body Weight 139 Body Mass Index (BMI) 32.1 Weight Status Obese GI Symptoms GI Symptoms None Last BM 06/19 Difficult in: None Skin Integrity/Comment: swelling BLE, intact Current %PO Good (75-100%) Estimated Nutritional Goals BEE in Kcals: Adj wt of IBW Calories/Kcals/Kg 25-30 based on adj wt 74kg Kcals Calculated 3042-0009 Protein: Adj wt of IBW Protein g/k Protein Calculated 74 Fluid: ml 8781-0307 Nutritional Problem No current Nutrition Prob Problem N/A Malnutrition Alert Protein-Calorie Malnutrition N/A Is there a minimum of two criteria No selected? Query Text:Check all the applicable criteria. A minimum of two criteria are recommended for diagnosis of either severe or non-severe malnutrition. Intervention/Recommendation Comments 1. Continue with current diet as ordered. Notified billing clerk and updated food preference. 2. Monitor PO intake, wt, labs and skin integrity 3. F/U as low risk in 7 days, 06/27 Expected Outcomes/Goals Expected Outcomes/Goals 1. PO intake to meet at least 75% of nutritional needs. 2. Wt stability, skin to remain intact, labs WNL
--- NOTE | 2017-06-29 11:57 | Progress Notes ---
DATE: 06/29/2017 Staff was spoken to. Patient is interviewed. Mood is noted to be irritable. Affect is constricted. Coping skills are noted to be still poor. The patient has been having difficult time to cope with the stress. The patient is stating that she does not need to be on any medication. The patient is conserved and has been informed that if she refuses to take the medication, medication is going to be given by intramuscular injection. The patient is going to be placed on Haldol, possibly patient is going to be going with the Haldol Decanoate. JOB# [id number]
--- NOTE | 2017-06-30 08:59 | Progress Notes ---
DATE: 06/30/2017 SUBJECTIVE: Staff was spoken to. The patient is interviewed. Mood is noted to be anxious. The patient's insight and judgment appear to be still impaired. The patient has been very intrusive and demanding. The patient's coping skills are noted to be very poor. The patient is conserved at this time. The patient has been refusing the medication and she is going to be medicated against her will, if she refuses to comply with the medication. ASSESSMENT: The patient is still psychotic. PLAN: To continue the patient with the supportive therapy and followup. JOB# [id number]
[2017-06-30] MEDS: Polyvinyl Alcohol Ophth Soln 15 mL Bottle EACH EYE SCH (09:59)
[2017-06-30] MEDS: Haloperidol Lactate 5 mg/mL 1mL Vial IM PRN (09:59)
[2017-06-30] MEDS: Vitamin B Complex w/Vitamin C Tab PO SCH (10:00)
[2017-06-30] MEDS: Potassium Chloride 20 mEq ER Tab PO SCH (10:00)
--- NOTE | 2017-06-30 11:30 | General Progress Note ---
Subjective - Review of Systems Service Date: 06/30/17 Subjective: I want go home Objective - Results Result Diagrams: 06/15/17 20:15 06/15/17 20:15 Recent Labs: Laboratory Last Values WBC 6.3 Th/cmm (4.8-10.8) 06/15/17 20:15 RBC 4.39 Mil/cmm (3.80-5.10) 06/15/17 20:15 Hgb 13.7 gm/dL (12-16) 06/15/17 20:15 Hct 39.5 % (41.0-60) L 06/15/17 20:15 MCV 89.9 fl (81-100) 06/15/17 20:15 MCH 31.2 pg (27.0-31.0) H 06/15/17 20:15 MCHC Differential 34.7 pg (28.0-36.0) 06/15/17 20:15 RDW 12.2 % (11.5-20.0) 06/15/17 20:15 Plt Count 271 Th/cmm (150-400) 06/15/17 20:15 MPV 9.0 fl 06/15/17 20:15 Neutrophils % 72.6 % (40.0-80.0) 06/15/17 20:15 Lymphocytes % 13.4 % (20.0-50.0) L 06/15/17 20:15 Monocytes % 8.7 % (2.0-10.0) 06/15/17 20:15 Eosinophils % 4.3 % (0.0-5.0) 06/15/17 20:15 Basophils % 1.0 % (0.0-2.0) 06/15/17 20:15 Sodium 137 mEq/L (136-145) 06/15/17 20:15 Potassium 3.6 mEq/L (3.5-5.1) 06/15/17 20:15 Chloride 104 mEq/L (98-107) 06/15/17 20:15 Carbon Dioxide 27.7 mEq/L (21.0-31.0) 06/15/17 20:15 Anion Gap 8.9 (7.0-16.0) 06/15/17 20:15 BUN 14 mg/dL (7-25) 06/15/17 20:15 Creatinine 0.9 mg/dL (0.6-1.2) 06/15/17 20:15 Est GFR ( Amer) > 60.0 ml/min (>90) 06/15/17 20:15 Est GFR (Non-Af Amer) > 60.0 ml/min 06/15/17 20:15 BUN/Creatinine Ratio 15.6 06/15/17 20:15 Glucose 97 mg/dL (70-105) 06/15/17 20:15 Calcium 8.6 mg/dL (8.6-10.3) 06/15/17 20:15 Total Bilirubin 0.6 mg/dL (0.3-1.0) 06/15/17 20:15 AST 19 U/L (13-39) 06/15/17 20:15 ALT 17 U/L (7-52) 06/15/17 20:15 Alkaline Phosphatase 53 U/L (34-104) 06/15/17 20:15 Total Protein 5.9 gm/dL (6.0-8.3) L 06/15/17 20:15 Albumin 3.7 gm/dL (3.7-5.3) 06/15/17 20:15 Globulin 2.2 gm/dL 06/15/17 20:15 Albumin/Globulin Ratio 1.7 (1.0-1.8) 06/15/17 20:15 TSH 2.66 uIU/ml (0.34-5.60) 06/15/17 20:15 Urine Source RANDOM 06/15/17 20:00 Urine Color YELLOW 06/15/17 20:00 Urine Clarity CLEAR (CLEAR) 06/15/17 20:00 Urine pH 7.5 (4.6 - 8.0) 06/15/17 20:00 Ur Specific [place] 1.010 (1.005-1.030) 06/15/17 20:00 Urine Protein NEGATIVE mg/dL (NEGATIVE) 06/15/17 20:00 Urine Glucose (UA) NEGATIVE mg/dL (NEGATIVE) 06/15/17 20:00 Urine Ketones NEGATIVE mg/dL (NEGATIVE) 06/15/17 20:00 Urine Blood NEGATIVE (NEGATIVE) 06/15/17 20:00 Urine Nitrate NEGATIVE (NEGATIVE) 06/15/17 20:00 Urine Bilirubin NEGATIVE (NEGATIVE) 06/15/17 20:00 Urine Urobilinogen 0.2 E.U./dL (0.2 - 1.0) 06/15/17 20:00 Ur Leukocyte Esterase TRACE (NEGATIVE) H 06/15/17 20:00 Urine RBC NONE SEEN /hpf (0-5) 06/15/17 20:00 Urine WBC 0-2 /hpf (0-5) 06/15/17 20:00 Ur Epithelial Cells FEW /lpf (FEW) 06/15/17 20:00 Urine Bacteria OCCASIONAL /hpf (NONE SEEN) 06/15/17 20:00 Valproic Acid 27.9 ug/mL (50.0-100.0) L 06/15/17 20:15 RPR NONREACTIVE (NONREACTIVE) 06/15/17 20:15 - Physical Exam Vitals and I&O: Vital Signs Temp 97.8 F 06/30/17 06:33 Pulse 51 06/30/17 06:33 Resp 18 06/30/17 06:33 BP 106/58 06/30/17 06:33 Pulse Ox 99 06/30/17 06:33 Intake & Output 06/29/17 06/30/17 06/30/17 18:59 06:59 18:59 Intake Total 1000 720 Balance 1000 720 Intake: Oral 1000 720 Other: # Voids 3 1 # Bowel Movements 1 Active Medications: Current Medications Acetaminophen (Tylenol) 650 mg PO Q4HR PRN PRN Reason: Mild Pain / Temp above 100 Stop: 08/14/17 23:19 Artificial Tears (Artificial Tears Ophth Soln) 2 drop EACH EYE BID [facility] Stop: 08/15/17 08:59 Last Admin: 06/30/17 09:59 Dose: Not Given Cholecalciferol (Vitamin D3) 1,000 iu PO BID [facility] Stop: 08/15/17 08:59 Last Admin: 06/30/17 10:00 Dose: Not Given Divalproex Sodium (Depakote Dr) 250 mg PO TID [facility] PRN Reason: Protocol Stop: 08/27/17 13:59 Last Admin: 06/30/17 10:00 Dose: Not Given Docusate Sodium (Colace) 100 mg PO BID [facility] Stop: 08/15/17 08:59 Last Admin: 06/30/17 10:00 Dose: Not Given Furosemide (Lasix) 20 mg PO DAILY [facility] Stop: 08/15/17 08:59 Last Admin: 06/30/17 10:00 Dose: Not Given Haloperidol (Haldol) 5 mg PO BID [facility] PRN Reason: Protocol Stop: 08/28/17 16:59 Last Admin: 06/30/17 10:00 Dose: Not Given Haloperidol Lactate (Haldol) 5 mg IM BID PRN PRN Reason: Agitation Stop: 08/28/17 09:31 Last Admin: 06/30/17 09:59 Dose: 5 mg Ibuprofen (Motrin) 600 mg PO Q8H PRN PRN Reason: Pain (Moderate) Stop: 08/14/17 22:59 Last Admin: 06/26/17 10:26 Dose: 600 mg Lisinopril (Zestril) 5 mg PO DAILY [facility] Stop: 08/15/17 08:59 Last Admin: 06/30/17 10:00 Dose: Not Given Lorazepam (Ativan) 0.5 mg PO Q12H [facility] PRN Reason: Protocol Stop: 08/15/17 08:59 Last Admin: 06/30/17 09:59 Dose: Not Given Potassium Chloride (Klor-Con) 20 meq PO DAILY [facility] Stop: 08/15/17 08:59 Last Admin: 06/30/17 10:00 Dose: Not Given Quetiapine Fumarate (Seroquel) 200 mg PO Q12H [facility] PRN Reason: Protocol Stop: 08/15/17 08:59 Last Admin: 06/30/17 09:59 Dose: Not Given Vitamin B Complex/Vit C/Folic Acid (Vitamin B Complex W/Vitamin C) 1 tab PO DAILY [facility] Stop: 08/15/17 08:59 Last Admin: 06/30/17 10:00 Dose: Not Given General: Alert, Other (Confused) HEENT: Atraumatic Neck: Supple Cardiovascular: Regular rate Lungs: Clear to auscultation Abdomen: Bowel sounds Neurological: Normal gait Skin: Other (Warm and dry) Psych/Mental Status: Other (Confused, not oriented) - Procedures Procedures: Procedures Procedure Code Date OT UNILAT SALPINGO-OOPHORECTOMY 65.49 05/27/98 REMOVAL OF OVARY/TUBE(S) 56091 05/27/98 Assessment/Plan - Assessment Assessment: Patient is awake, alert, agitated at moments. Occasionally refusing meds. Dx: increased in agitation, HTN. - Plan Plan: Patient under Psychiatric care, will continue with SNF meds. Will continue to monitor. Nutritional Asmnt/Malnutr-PDOC - Dietary Evaluation Malnutrition Findings (Please click <Entered> for more info): Nutritional Asmnt/Malnutrition Start: 06/20/17 15: 46 Text: Status: Complete Freq: Document 06/20/17 15:46 ERENDIRAG (Rec: 06/20/17 15:56 [email or web address] [id number]) Nutritional Asmnt/Malnutrition Patient General Information Nutritional Screening Moderate Risk Diagnosis psychosis Pertinent Medical Hx/Surgical Hx CAD, HTN Subjective Information Pt seen sitting on bed at the time of visit, awake and alert . Pt reported good appetite, PO intake 100%, likes the food , no coffee but likes tea. Current Diet Order/ Nutrition Support low sodium Pertinent Medications vitamin D3, colace, lasix, kcl , seroquel, vitamin B complex/ visit C/folic acid Pertinent Labs 06/15 nutrition related labs WNL Nutritional Hx/Data Height 1.7 m Height (Calculated Centimeters) 170.2 Current Weight (lbs) 92.986 kg Weight (Calculated Kilograms) 93.0 Weight (Calculated Grams) 92438.4 [place] Body Weight 148 % [place] Body Weight 139 Body Mass Index (BMI) 32.1 Weight Status Obese GI Symptoms GI Symptoms None Last BM 06/19 Difficult in: None Skin Integrity/Comment: swelling BLE, intact Current %PO Good (75-100%) Estimated Nutritional Goals BEE in Kcals: Adj wt of IBW Calories/Kcals/Kg 25-30 based on adj wt 74kg Kcals Calculated 8358-9721 Protein: Adj wt of IBW Protein g/k Protein Calculated 74 Fluid: ml 0766-0469 Nutritional Problem No current Nutrition Prob Problem N/A Malnutrition Alert Protein-Calorie Malnutrition N/A Is there a minimum of two criteria No selected? Query Text:Check all the applicable criteria. A minimum of two criteria are recommended for diagnosis of either severe or non-severe malnutrition. Intervention/Recommendation Comments 1. Continue with current diet as ordered. Notified production statistical clerk and updated food preference. 2. Monitor PO intake, wt, labs and skin integrity 3. F/U as low risk in 7 days, 06/27 Expected Outcomes/Goals Expected Outcomes/Goals 1. PO intake to meet at least 75% of nutritional needs. 2. Wt stability, skin to remain intact, labs WNL
--- NOTE | 2017-07-01 08:46 | General Progress Note ---
Subjective - Review of Systems Service Date: 07/01/17 Subjective: I want go home Objective - Results Result Diagrams: 06/15/17 20:15 06/15/17 20:15 Recent Labs: Laboratory Last Values WBC 6.3 Th/cmm (4.8-10.8) 06/15/17 20:15 RBC 4.39 Mil/cmm (3.80-5.10) 06/15/17 20:15 Hgb 13.7 gm/dL (12-16) 06/15/17 20:15 Hct 39.5 % (41.0-60) L 06/15/17 20:15 MCV 89.9 fl (81-100) 06/15/17 20:15 MCH 31.2 pg (27.0-31.0) H 06/15/17 20:15 MCHC Differential 34.7 pg (28.0-36.0) 06/15/17 20:15 RDW 12.2 % (11.5-20.0) 06/15/17 20:15 Plt Count 271 Th/cmm (150-400) 06/15/17 20:15 MPV 9.0 fl 06/15/17 20:15 Neutrophils % 72.6 % (40.0-80.0) 06/15/17 20:15 Lymphocytes % 13.4 % (20.0-50.0) L 06/15/17 20:15 Monocytes % 8.7 % (2.0-10.0) 06/15/17 20:15 Eosinophils % 4.3 % (0.0-5.0) 06/15/17 20:15 Basophils % 1.0 % (0.0-2.0) 06/15/17 20:15 Sodium 137 mEq/L (136-145) 06/15/17 20:15 Potassium 3.6 mEq/L (3.5-5.1) 06/15/17 20:15 Chloride 104 mEq/L (98-107) 06/15/17 20:15 Carbon Dioxide 27.7 mEq/L (21.0-31.0) 06/15/17 20:15 Anion Gap 8.9 (7.0-16.0) 06/15/17 20:15 BUN 14 mg/dL (7-25) 06/15/17 20:15 Creatinine 0.9 mg/dL (0.6-1.2) 06/15/17 20:15 Est GFR ( Amer) > 60.0 ml/min (>90) 06/15/17 20:15 Est GFR (Non-Af Amer) > 60.0 ml/min 06/15/17 20:15 BUN/Creatinine Ratio 15.6 06/15/17 20:15 Glucose 97 mg/dL (70-105) 06/15/17 20:15 Calcium 8.6 mg/dL (8.6-10.3) 06/15/17 20:15 Total Bilirubin 0.6 mg/dL (0.3-1.0) 06/15/17 20:15 AST 19 U/L (13-39) 06/15/17 20:15 ALT 17 U/L (7-52) 06/15/17 20:15 Alkaline Phosphatase 53 U/L (34-104) 06/15/17 20:15 Total Protein 5.9 gm/dL (6.0-8.3) L 06/15/17 20:15 Albumin 3.7 gm/dL (3.7-5.3) 06/15/17 20:15 Globulin 2.2 gm/dL 06/15/17 20:15 Albumin/Globulin Ratio 1.7 (1.0-1.8) 06/15/17 20:15 TSH 2.66 uIU/ml (0.34-5.60) 06/15/17 20:15 Urine Source RANDOM 06/15/17 20:00 Urine Color YELLOW 06/15/17 20:00 Urine Clarity CLEAR (CLEAR) 06/15/17 20:00 Urine pH 7.5 (4.6 - 8.0) 06/15/17 20:00 Ur Specific [place] 1.010 (1.005-1.030) 06/15/17 20:00 Urine Protein NEGATIVE mg/dL (NEGATIVE) 06/15/17 20:00 Urine Glucose (UA) NEGATIVE mg/dL (NEGATIVE) 06/15/17 20:00 Urine Ketones NEGATIVE mg/dL (NEGATIVE) 06/15/17 20:00 Urine Blood NEGATIVE (NEGATIVE) 06/15/17 20:00 Urine Nitrate NEGATIVE (NEGATIVE) 06/15/17 20:00 Urine Bilirubin NEGATIVE (NEGATIVE) 06/15/17 20:00 Urine Urobilinogen 0.2 E.U./dL (0.2 - 1.0) 06/15/17 20:00 Ur Leukocyte Esterase TRACE (NEGATIVE) H 06/15/17 20:00 Urine RBC NONE SEEN /hpf (0-5) 06/15/17 20:00 Urine WBC 0-2 /hpf (0-5) 06/15/17 20:00 Ur Epithelial Cells FEW /lpf (FEW) 06/15/17 20:00 Urine Bacteria OCCASIONAL /hpf (NONE SEEN) 06/15/17 20:00 Valproic Acid 27.9 ug/mL (50.0-100.0) L 06/15/17 20:15 RPR NONREACTIVE (NONREACTIVE) 06/15/17 20:15 - Physical Exam Vitals and I&O: Vital Signs Temp 97.5 F 07/01/17 06:05 Pulse 59 07/01/17 06:05 Resp 20 07/01/17 06:05 BP 116/61 07/01/17 06:05 Pulse Ox 100 07/01/17 06:05 Intake & Output 06/30/17 07/01/17 07/01/17 18:59 06:59 18:59 Intake Total 1200 360 Balance 1200 360 Intake: Oral 1200 360 Other: # Voids 3 2 # Bowel Movements 0 Active Medications: Current Medications Acetaminophen (Tylenol) 650 mg PO Q4HR PRN PRN Reason: Mild Pain / Temp above 100 Stop: 08/14/17 23:19 Artificial Tears (Artificial Tears Ophth Soln) 2 drop EACH EYE BID [facility] Stop: 08/15/17 08:59 Last Admin: 06/30/17 09:59 Dose: Not Given Cholecalciferol (Vitamin D3) 1,000 iu PO BID [facility] Stop: 08/15/17 08:59 Last Admin: 06/30/17 10:00 Dose: Not Given Divalproex Sodium (Depakote Dr) 250 mg PO TID [facility] PRN Reason: Protocol Stop: 08/27/17 13:59 Last Admin: 06/30/17 20:59 Dose: Not Given Docusate Sodium (Colace) 100 mg PO BID [facility] Stop: 08/15/17 08:59 Last Admin: 06/30/17 10:00 Dose: Not Given Furosemide (Lasix) 20 mg PO DAILY [facility] Stop: 08/15/17 08:59 Last Admin: 06/30/17 10:00 Dose: Not Given Haloperidol (Haldol) 5 mg PO BID [facility] PRN Reason: Protocol Stop: 08/28/17 16:59 Last Admin: 06/30/17 10:00 Dose: Not Given Haloperidol Lactate (Haldol) 5 mg IM BID PRN PRN Reason: Agitation Stop: 08/28/17 09:31 Last Admin: 06/30/17 09:59 Dose: 5 mg Ibuprofen (Motrin) 600 mg PO Q8H PRN PRN Reason: Pain (Moderate) Stop: 08/14/17 22:59 Last Admin: 06/26/17 10:26 Dose: 600 mg Lisinopril (Zestril) 5 mg PO DAILY [facility] Stop: 08/15/17 08:59 Last Admin: 06/30/17 10:00 Dose: Not Given Potassium Chloride (Klor-Con) 20 meq PO DAILY [facility] Stop: 08/15/17 08:59 Last Admin: 06/30/17 10:00 Dose: Not Given Quetiapine Fumarate (Seroquel) 200 mg PO Q12H [facility] PRN Reason: Protocol Stop: 08/15/17 08:59 Last Admin: 06/30/17 20:58 Dose: Not Given Vitamin B Complex/Vit C/Folic Acid (Vitamin B Complex W/Vitamin C) 1 tab PO DAILY [facility] Stop: 08/15/17 08:59 Last Admin: 06/30/17 10:00 Dose: Not Given General: Alert, Other (Confused) HEENT: Atraumatic Neck: Supple Cardiovascular: Regular rate Lungs: Clear to auscultation Abdomen: Bowel sounds Neurological: Normal gait Skin: Other (Warm and dry) Psych/Mental Status: Other (Confused, not oriented) - Procedures Procedures: Procedures Procedure Code Date [facility] UNILAT SALPINGO-OOPHORECTOMY 65.49 05/27/98 REMOVAL OF OVARY/TUBE(S) 04432 05/27/98 Assessment/Plan - Assessment Assessment: Patient is awake, alert, agitated at moments. Occasionally refusing meds. Dx: increased in agitation, HTN. - Plan Plan: Patient under Psychiatric care, will continue with SNF meds. Will continue to monitor. Nutritional Asmnt/Malnutr-PDOC - Dietary Evaluation Malnutrition Findings (Please click <Entered> for more info): Nutritional Asmnt/Malnutrition Start: 06/20/17 15: 46 Text: Status: Complete Freq: Document 06/20/17 15:46 BROOKEYESSI (Rec: 06/20/17 15:56 [email or web address] [email or web address]) Nutritional Asmnt/Malnutrition Patient General Information Nutritional Screening Moderate Risk Diagnosis psychosis Pertinent Medical Hx/Surgical Hx CAD, HTN Subjective Information Pt seen sitting on bed at the time of visit, awake and alert . Pt reported good appetite, PO intake 100%, likes the food , no coffee but likes tea. Current Diet Order/ Nutrition Support low sodium Pertinent Medications vitamin D3, colace, lasix, kcl , seroquel, vitamin B complex/ visit C/folic acid Pertinent Labs 06/15 nutrition related labs WNL Nutritional Hx/Data Height 1.7 m Height (Calculated Centimeters) 170.2 Current Weight (lbs) 92.986 kg Weight (Calculated Kilograms) 93.0 Weight (Calculated Grams) 25728.4 [place] Body Weight 148 % [place] Body Weight 139 Body Mass Index (BMI) 32.1 Weight Status Obese GI Symptoms GI Symptoms None Last BM 06/19 Difficult in: None Skin Integrity/Comment: swelling BLE, intact Current %PO Good (75-100%) Estimated Nutritional Goals BEE in Kcals: Adj wt of IBW Calories/Kcals/Kg 25-30 based on adj wt 74kg Kcals Calculated 3736-4824 Protein: Adj wt of IBW Protein g/k Protein Calculated 74 Fluid: ml 8903-0922 Nutritional Problem No current Nutrition Prob Problem N/A Malnutrition Alert Protein-Calorie Malnutrition N/A Is there a minimum of two criteria No selected? Query Text:Check all the applicable criteria. A minimum of two criteria are recommended for diagnosis of either severe or non-severe malnutrition. Intervention/Recommendation Comments 1. Continue with current diet as ordered. Notified dietist and updated food preference. 2. Monitor PO intake, wt, labs and skin integrity 3. F/U as low risk in 7 days, 06/27 Expected Outcomes/Goals Expected Outcomes/Goals 1. PO intake to meet at least 75% of nutritional needs. 2. Wt stability, skin to remain intact, labs WNL
[2017-07-01] MEDS: Haloperidol Lactate 5 mg/mL 1mL Vial IM PRN (09:05)
[2017-07-01] MEDS: Polyvinyl Alcohol Ophth Soln 15 mL Bottle EACH EYE SCH ×2 (09:05→18:37)
[2017-07-01] MEDS: Potassium Chloride 20 mEq ER Tab PO SCH (09:06)
[2017-07-01] MEDS: Vitamin B Complex w/Vitamin C Tab PO SCH (09:06)
--- NOTE | 2017-07-01 20:13 | Progress Notes ---
DATE: 07/01/2017 PSYCHIATRIC PROGRESS NOTE TIME PATIENT SEEN: Staff was spoken to. The patient is interviewed. Mood is noted to be irritable. Affect is constricted. The patient is continuously refusing the medication and the patient is getting the IM doses. The patient has no insight into her illness. ASSESSMENT: The patient is still psychotic. PLAN: To continue the patient on the current medications and I encouraged the patient to verbalize the concerns rather than to act out. JOB# [id number]
[2017-07-02] MEDS: Haloperidol Lactate 5 mg/mL 1mL Vial IM PRN ×2 (09:32→16:27)
[2017-07-02] MEDS: Polyvinyl Alcohol Ophth Soln 15 mL Bottle EACH EYE SCH (10:06)
[2017-07-02] MEDS: Potassium Chloride 20 mEq ER Tab PO SCH (10:07)
[2017-07-02] MEDS: Vitamin B Complex w/Vitamin C Tab PO SCH (10:07)
--- NOTE | 2017-07-03 03:07 | Progress Notes ---
DATE: 07/02/2017 SUBJECTIVE: Staff was spoken to. The patient is interviewed. Mood is noted to be irritable. Affect is constricted. The patient is pacing on the unit. Insight and judgment is still impaired. The patient is stating that she should not be taking any medications. Currently on 250 mg of the Depakote and the patient is also receiving the quetiapine 200 mg twice a day. Plan to request the patient to ____ Depakote level done and the patient is going to be followed up and the dose of the Depakote is going to be adjusted. ASSESSMENT: The patient is still impulsive. PLAN: To continue the patient with the supportive therapy. I encouraged the patient to verbalize the concerns rather than to act out. JOB# [id number]
--- NOTE | 2017-07-03 09:12 | General Progress Note ---
Subjective - Review of Systems Service Date: 07/03/17 Subjective: I want go home Objective - Results Result Diagrams: 06/15/17 20:15 06/15/17 20:15 Recent Labs: Laboratory Last Values WBC 6.3 Th/cmm (4.8-10.8) 06/15/17 20:15 RBC 4.39 Mil/cmm (3.80-5.10) 06/15/17 20:15 Hgb 13.7 gm/dL (12-16) 06/15/17 20:15 Hct 39.5 % (41.0-60) L 06/15/17 20:15 MCV 89.9 fl (81-100) 06/15/17 20:15 MCH 31.2 pg (27.0-31.0) H 06/15/17 20:15 MCHC Differential 34.7 pg (28.0-36.0) 06/15/17 20:15 RDW 12.2 % (11.5-20.0) 06/15/17 20:15 Plt Count 271 Th/cmm (150-400) 06/15/17 20:15 MPV 9.0 fl 06/15/17 20:15 Neutrophils % 72.6 % (40.0-80.0) 06/15/17 20:15 Lymphocytes % 13.4 % (20.0-50.0) L 06/15/17 20:15 Monocytes % 8.7 % (2.0-10.0) 06/15/17 20:15 Eosinophils % 4.3 % (0.0-5.0) 06/15/17 20:15 Basophils % 1.0 % (0.0-2.0) 06/15/17 20:15 Sodium 137 mEq/L (136-145) 06/15/17 20:15 Potassium 3.6 mEq/L (3.5-5.1) 06/15/17 20:15 Chloride 104 mEq/L (98-107) 06/15/17 20:15 Carbon Dioxide 27.7 mEq/L (21.0-31.0) 06/15/17 20:15 Anion Gap 8.9 (7.0-16.0) 06/15/17 20:15 BUN 14 mg/dL (7-25) 06/15/17 20:15 Creatinine 0.9 mg/dL (0.6-1.2) 06/15/17 20:15 Est GFR ( Amer) > 60.0 ml/min (>90) 06/15/17 20:15 Est GFR (Non-Af Amer) > 60.0 ml/min 06/15/17 20:15 BUN/Creatinine Ratio 15.6 06/15/17 20:15 Glucose 97 mg/dL (70-105) 06/15/17 20:15 Calcium 8.6 mg/dL (8.6-10.3) 06/15/17 20:15 Total Bilirubin 0.6 mg/dL (0.3-1.0) 06/15/17 20:15 AST 19 U/L (13-39) 06/15/17 20:15 ALT 17 U/L (7-52) 06/15/17 20:15 Alkaline Phosphatase 53 U/L (34-104) 06/15/17 20:15 Total Protein 5.9 gm/dL (6.0-8.3) L 06/15/17 20:15 Albumin 3.7 gm/dL (3.7-5.3) 06/15/17 20:15 Globulin 2.2 gm/dL 06/15/17 20:15 Albumin/Globulin Ratio 1.7 (1.0-1.8) 06/15/17 20:15 TSH 2.66 uIU/ml (0.34-5.60) 06/15/17 20:15 Urine Source RANDOM 06/15/17 20:00 Urine Color YELLOW 06/15/17 20:00 Urine Clarity CLEAR (CLEAR) 06/15/17 20:00 Urine pH 7.5 (4.6 - 8.0) 06/15/17 20:00 Ur Specific [place] 1.010 (1.005-1.030) 06/15/17 20:00 Urine Protein NEGATIVE mg/dL (NEGATIVE) 06/15/17 20:00 Urine Glucose (UA) NEGATIVE mg/dL (NEGATIVE) 06/15/17 20:00 Urine Ketones NEGATIVE mg/dL (NEGATIVE) 06/15/17 20:00 Urine Blood NEGATIVE (NEGATIVE) 06/15/17 20:00 Urine Nitrate NEGATIVE (NEGATIVE) 06/15/17 20:00 Urine Bilirubin NEGATIVE (NEGATIVE) 06/15/17 20:00 Urine Urobilinogen 0.2 E.U./dL (0.2 - 1.0) 06/15/17 20:00 Ur Leukocyte Esterase TRACE (NEGATIVE) H 06/15/17 20:00 Urine RBC NONE SEEN /hpf (0-5) 06/15/17 20:00 Urine WBC 0-2 /hpf (0-5) 06/15/17 20:00 Ur Epithelial Cells FEW /lpf (FEW) 06/15/17 20:00 Urine Bacteria OCCASIONAL /hpf (NONE SEEN) 06/15/17 20:00 Valproic Acid < 10.0 ug/mL (50.0-100.0) L 07/02/17 19:11 RPR NONREACTIVE (NONREACTIVE) 06/15/17 20:15 - Physical Exam Vitals and I&O: Vital Signs Temp 98.2 F 07/03/17 05:39 Pulse 58 07/03/17 05:39 Resp 20 07/03/17 05:39 BP 125/58 07/03/17 05:39 Pulse Ox 98 07/03/17 05:39 Intake & Output 07/02/17 07/03/17 07/03/17 18:59 06:59 18:59 Intake Total 360 Balance 360 Weight (lbs) 92.986 kg Intake: Oral 360 Other: # Voids 1 # Bowel Movements 0 Active Medications: Current Medications Acetaminophen (Tylenol) 650 mg PO Q4HR PRN PRN Reason: Mild Pain / Temp above 100 Stop: 08/14/17 23:19 Artificial Tears (Artificial Tears Ophth Soln) 2 drop EACH EYE BID ON LICENSE OF [facility] Stop: 08/15/17 08:59 Last Admin: 07/02/17 10:06 Dose: Not Given Cholecalciferol (Vitamin D3) 1,000 iu PO BID ON LICENSE OF [facility] Stop: 08/15/17 08:59 Last Admin: 07/02/17 10:06 Dose: Not Given Divalproex Sodium (Depakote Dr) 250 mg PO TID ON LICENSE OF [facility] PRN Reason: Protocol Stop: 08/27/17 13:59 Last Admin: 07/02/17 20:54 Dose: 250 mg Docusate Sodium (Colace) 100 mg PO BID ON LICENSE OF [facility] Stop: 08/15/17 08:59 Last Admin: 07/02/17 10:06 Dose: Not Given Furosemide (Lasix) 20 mg PO DAILY ON [facility] OF [facility] Stop: 08/15/17 08:59 Last Admin: 07/02/17 10:06 Dose: Not Given Haloperidol (Haldol) 5 mg PO BID [facility] PRN Reason: Protocol Stop: 08/28/17 16:59 Last Admin: 07/02/17 10:07 Dose: Not Given Haloperidol Lactate (Haldol) 5 mg IM BID PRN PRN Reason: Agitation Stop: 08/28/17 09:31 Last Admin: 07/02/17 16:27 Dose: 5 mg Ibuprofen (Motrin) 600 mg PO Q8H PRN PRN Reason: Pain (Moderate) Stop: 08/14/17 22:59 Last Admin: 06/26/17 10:26 Dose: 600 mg Lisinopril (Zestril) 5 mg PO DAILY [facility] Stop: 08/15/17 08:59 Last Admin: 07/02/17 10:07 Dose: Not Given Potassium Chloride (Klor-Con) 20 meq PO DAILY [facility] Stop: 08/15/17 08:59 Last Admin: 07/02/17 10:07 Dose: Not Given Quetiapine Fumarate (Seroquel) 200 mg PO HS KENZIE PRN Reason: Protocol Stop: 09/01/17 20:59 Vitamin B Complex/Vit C/Folic Acid (Vitamin B Complex W/Vitamin C) 1 tab PO DAILY ON LICENSE OF [facility] Stop: 08/15/17 08:59 Last Admin: 07/02/17 10:07 Dose: Not Given General: Alert, Other (Confused) HEENT: Atraumatic Neck: Supple Cardiovascular: Regular rate Lungs: Clear to auscultation Abdomen: Bowel sounds Neurological: Normal gait Skin: Other (Warm and dry) Psych/Mental Status: Other (Confused, not oriented) - Procedures Procedures: Procedures Procedure Code Date OT UNILAT SALPINGO-OOPHORECTOMY 65.49 05/27/98 REMOVAL OF OVARY/TUBE(S) 23407 05/27/98 Assessment/Plan - Assessment Assessment: Patient is awake, alert, agitated at moments. Occasionally refusing meds. Dx: increased in agitation, HTN. - Plan Plan: Patient under Psychiatric care, will continue with SNF meds. Will continue to monitor. Nutritional Asmnt/Malnutr-PDOC - Dietary Evaluation Malnutrition Findings (Please click <Entered> for more info): Nutritional Asmnt/Malnutrition Start: 06/20/17 15: 46 Text: Status: Complete Freq: Document 06/20/17 15:46 [email or web address] (Rec: 06/20/17 15:56 [email or web address]) Nutritional Asmnt/Malnutrition Patient General Information Nutritional Screening Moderate Risk Diagnosis psychosis Pertinent Medical Hx/Surgical Hx CAD, HTN Subjective Information Pt seen sitting on bed at the time of visit, awake and alert . Pt reported good appetite, PO intake 100%, likes the food , no coffee but likes tea. Current Diet Order/ Nutrition Support low sodium Pertinent Medications vitamin D3, colace, lasix, kcl , seroquel, vitamin B complex/ visit C/folic acid Pertinent Labs 06/15 nutrition related labs WNL Nutritional Hx/Data Height 1.7 m Height (Calculated Centimeters) 170.2 Current Weight (lbs) 92.986 kg Weight (Calculated Kilograms) 93.0 Weight (Calculated Grams) 19930.4 [place] Body Weight 148 % [place] Body Weight 139 Body Mass Index (BMI) 32.1 Weight Status Obese GI Symptoms GI Symptoms None Last BM 06/19 Difficult in: None Skin Integrity/Comment: swelling BLE, intact Current %PO Good (75-100%) Estimated Nutritional Goals BEE in Kcals: Adj wt of IBW Calories/Kcals/Kg 25-30 based on adj wt 74kg Kcals Calculated 9939-5769 Protein: Adj wt of IBW Protein g/k Protein Calculated 74 Fluid: ml 7172-8751 Nutritional Problem No current Nutrition Prob Problem N/A Malnutrition Alert Protein-Calorie Malnutrition N/A Is there a minimum of two criteria No selected? Query Text:Check all the applicable criteria. A minimum of two criteria are recommended for diagnosis of either severe or non-severe malnutrition. Intervention/Recommendation Comments 1. Continue with current diet as ordered. Notified filing clerk and updated food preference. 2. Monitor PO intake, wt, labs and skin integrity 3. F/U as low risk in 7 days, 06/27 Expected Outcomes/Goals Expected Outcomes/Goals 1. PO intake to meet at least 75% of nutritional needs. 2. Wt stability, skin to remain intact, labs WNL
[2017-07-03] MEDS: Potassium Chloride 20 mEq ER Tab PO SCH (09:29)
[2017-07-03] MEDS: Vitamin B Complex w/Vitamin C Tab PO SCH (09:29)
[2017-07-03] MEDS: Polyvinyl Alcohol Ophth Soln 15 mL Bottle EACH EYE SCH ×2 (13:54→16:29)
--- NOTE | 2017-07-03 14:52 | Progress Notes ---
DATE: 07/03/2017 PSYCHIATRIC PROGRESS NOTE SUBJECTIVE: Staff was spoken to. The patient is interviewed. Mood is noted to be irritable. Affect is constricted. Continues to be irritable and angry. Coping skills are noted to be poor. Insight and judgment are also noted to be impaired. The patient is noted to be less irritable at this time. No side effects to the medications are noted. The patient has been able to sleep. The patient is currently on Haldol and Seroquel. Plan to continue the Seroquel at 200 mg at bedtime and continue the Haldol. If the patient is willing, possibly the patient is going to be placed on the Haldol Decanoate pretty soon. ASSESSMENT: The patient is still psychotic and pacing and not ready to be discharged to a lower level of care. JOB# [id number]
--- NOTE | 2017-07-04 08:51 | General Progress Note ---
Subjective - Review of Systems Service Date: 07/04/17 Subjective: I am fine Objective - Results Result Diagrams: 06/15/17 20:15 06/15/17 20:15 Recent Labs: Laboratory Last Values WBC 6.3 Th/cmm (4.8-10.8) 06/15/17 20:15 RBC 4.39 Mil/cmm (3.80-5.10) 06/15/17 20:15 Hgb 13.7 gm/dL (12-16) 06/15/17 20:15 Hct 39.5 % (41.0-60) L 06/15/17 20:15 MCV 89.9 fl (81-100) 06/15/17 20:15 MCH 31.2 pg (27.0-31.0) H 06/15/17 20:15 MCHC Differential 34.7 pg (28.0-36.0) 06/15/17 20:15 RDW 12.2 % (11.5-20.0) 06/15/17 20:15 Plt Count 271 Th/cmm (150-400) 06/15/17 20:15 MPV 9.0 fl 06/15/17 20:15 Neutrophils % 72.6 % (40.0-80.0) 06/15/17 20:15 Lymphocytes % 13.4 % (20.0-50.0) L 06/15/17 20:15 Monocytes % 8.7 % (2.0-10.0) 06/15/17 20:15 Eosinophils % 4.3 % (0.0-5.0) 06/15/17 20:15 Basophils % 1.0 % (0.0-2.0) 06/15/17 20:15 Sodium 137 mEq/L (136-145) 06/15/17 20:15 Potassium 3.6 mEq/L (3.5-5.1) 06/15/17 20:15 Chloride 104 mEq/L (98-107) 06/15/17 20:15 Carbon Dioxide 27.7 mEq/L (21.0-31.0) 06/15/17 20:15 Anion Gap 8.9 (7.0-16.0) 06/15/17 20:15 BUN 14 mg/dL (7-25) 06/15/17 20:15 Creatinine 0.9 mg/dL (0.6-1.2) 06/15/17 20:15 Est GFR ( Amer) > 60.0 ml/min (>90) 06/15/17 20:15 Est GFR (Non-Af Amer) > 60.0 ml/min 06/15/17 20:15 BUN/Creatinine Ratio 15.6 06/15/17 20:15 Glucose 97 mg/dL (70-105) 06/15/17 20:15 Calcium 8.6 mg/dL (8.6-10.3) 06/15/17 20:15 Total Bilirubin 0.6 mg/dL (0.3-1.0) 06/15/17 20:15 AST 19 U/L (13-39) 06/15/17 20:15 ALT 17 U/L (7-52) 06/15/17 20:15 Alkaline Phosphatase 53 U/L (34-104) 06/15/17 20:15 Total Protein 5.9 gm/dL (6.0-8.3) L 06/15/17 20:15 Albumin 3.7 gm/dL (3.7-5.3) 06/15/17 20:15 Globulin 2.2 gm/dL 06/15/17 20:15 Albumin/Globulin Ratio 1.7 (1.0-1.8) 06/15/17 20:15 TSH 2.66 uIU/ml (0.34-5.60) 06/15/17 20:15 Urine Source RANDOM 06/15/17 20:00 Urine Color YELLOW 06/15/17 20:00 Urine Clarity CLEAR (CLEAR) 06/15/17 20:00 Urine pH 7.5 (4.6 - 8.0) 06/15/17 20:00 Ur Specific [place] 1.010 (1.005-1.030) 06/15/17 20:00 Urine Protein NEGATIVE mg/dL (NEGATIVE) 06/15/17 20:00 Urine Glucose (UA) NEGATIVE mg/dL (NEGATIVE) 06/15/17 20:00 Urine Ketones NEGATIVE mg/dL (NEGATIVE) 06/15/17 20:00 Urine Blood NEGATIVE (NEGATIVE) 06/15/17 20:00 Urine Nitrate NEGATIVE (NEGATIVE) 06/15/17 20:00 Urine Bilirubin NEGATIVE (NEGATIVE) 01/06/18 20:00 Urine Urobilinogen 0.2 E.U./dL (0.2 - 1.0) 06/15/17 20:00 Ur Leukocyte Esterase TRACE (NEGATIVE) H 06/15/17 20:00 Urine RBC NONE SEEN /hpf (0-5) 06/15/17 20:00 Urine WBC 0-2 /hpf (0-5) 06/15/17 20:00 Ur Epithelial Cells FEW /lpf (FEW) 06/15/17 20:00 Urine Bacteria OCCASIONAL /hpf (NONE SEEN) 06/15/17 20:00 Valproic Acid < 10.0 ug/mL (50.0-100.0) L 07/02/17 19:11 RPR NONREACTIVE (NONREACTIVE) 06/15/17 20:15 - Physical Exam Vitals and I&O: Vital Signs Temp 98.6 F 07/03/17 14:00 Pulse 81 07/03/17 14:00 Resp 20 07/03/17 14:00 BP 126/63 07/03/17 14:00 Pulse Ox 97 07/03/17 14:00 Intake & Output 07/03/17 07/04/17 07/04/17 18:59 06:59 18:59 Intake Total 900 Balance 900 Intake: Oral 900 Other: # Voids 3 # Bowel Movements 1 Active Medications: Current Medications Acetaminophen (Tylenol) 650 mg PO Q4HR PRN PRN Reason: Mild Pain / Temp above 100 Stop: 08/14/17 23:19 Artificial Tears (Artificial Tears Ophth Soln) 2 drop EACH EYE BID [facility] Stop: 08/15/17 08:59 Last Admin: 07/03/17 16:29 Dose: 2 drop Cholecalciferol (Vitamin D3) 1,000 iu PO BID [facility] Stop: 08/15/17 08:59 Last Admin: 07/03/17 16:29 Dose: 1,000 iu Divalproex Sodium (Depakote Dr) 250 mg PO TID [facility] PRN Reason: Protocol Stop: 08/27/17 13:59 Last Admin: 07/03/17 20:57 Dose: 250 mg Docusate Sodium (Colace) 100 mg PO BID [facility] Stop: 08/15/17 08:59 Last Admin: 07/03/17 16:30 Dose: 100 mg Furosemide (Lasix) 20 mg PO DAILY [facility] Stop: 08/15/17 08:59 Last Admin: 07/03/17 09:30 Dose: 20 mg Haloperidol (Haldol) 5 mg PO BID [facility] PRN Reason: Protocol Stop: 08/28/17 16:59 Last Admin: 07/03/17 16:30 Dose: 5 mg Haloperidol Lactate (Haldol) 5 mg IM BID PRN PRN Reason: Agitation Stop: 08/28/17 09:31 Last Admin: 07/02/17 16:27 Dose: 5 mg Ibuprofen (Motrin) 600 mg PO Q8H PRN PRN Reason: Pain (Moderate) Stop: 08/14/17 22:59 Last Admin: 06/26/17 10:26 Dose: 600 mg Lisinopril (Zestril) 5 mg PO DAILY [facility] Stop: 08/15/17 08:59 Last Admin: 07/03/17 09:28 Dose: 5 mg Potassium Chloride (Klor-Con) 20 meq PO DAILY [facility] Stop: 08/15/17 08:59 Last Admin: 07/03/17 09:29 Dose: 20 meq Quetiapine Fumarate (Seroquel) 200 mg PO HS [facility]IE PRN Reason: Protocol Stop: 09/01/17 20:59 Last Admin: 07/03/17 20:57 Dose: 200 mg Vitamin B Complex/Vit C/Folic Acid (Vitamin B Complex W/Vitamin C) 1 tab PO DAILY [facility] Stop: 08/15/17 08:59 Last Admin: 07/03/17 09:29 Dose: 1 tab General: Alert, Other (Confused) HEENT: Atraumatic Neck: Supple Cardiovascular: Regular rate Lungs: Clear to auscultation Abdomen: Bowel sounds Neurological: Normal gait Skin: Other (Warm and dry) Psych/Mental Status: Other (Confused, not oriented) - Procedures Procedures: Procedures Procedure Code Date OT UNILAT SALPINGO-OOPHORECTOMY 65.49 05/27/98 REMOVAL OF OVARY/TUBE(S) 48471 05/27/98 Assessment/Plan - Assessment Assessment: Patient is awake, alert, agitated at moments. Occasionally refusing meds. Dx: increased in agitation, HTN. - Plan Plan: Patient under Psychiatric care, will continue with SNF meds. Will continue to monitor. Nutritional Asmnt/Malnutr-PDOC - Dietary Evaluation Malnutrition Findings (Please click <Entered> for more info): Nutritional Asmnt/Malnutrition Start: 06/20/17 15: 46 Text: Status: Complete Freq: Document 06/20/17 15:46 [email or web address] (Rec: 06/20/17 15:56 [email or web address]) Nutritional Asmnt/Malnutrition Patient General Information Nutritional Screening Moderate Risk Diagnosis psychosis Pertinent Medical Hx/Surgical Hx CAD, HTN Subjective Information Pt seen sitting on bed at the time of visit, awake and alert . Pt reported good appetite, PO intake 100%, likes the food , no coffee but likes tea. Current Diet Order/ Nutrition Support low sodium Pertinent Medications vitamin D3, colace, lasix, kcl , seroquel, vitamin B complex/ visit C/folic acid Pertinent Labs 06/15 nutrition related labs WNL Nutritional Hx/Data Height 1.7 m Height (Calculated Centimeters) 170.2 Current Weight (lbs) 92.986 kg Weight (Calculated Kilograms) 93.0 Weight (Calculated Grams) 11660.4 [place] Body Weight 148 % [place] Body Weight 139 Body Mass Index (BMI) 32.1 Weight Status Obese GI Symptoms GI Symptoms None Last BM 06/19 Difficult in: None Skin Integrity/Comment: swelling BLE, intact Current %PO Good (75-100%) Estimated Nutritional Goals BEE in Kcals: Adj wt of IBW Calories/Kcals/Kg 25-30 based on adj wt 74kg Kcals Calculated 4346-5056 Protein: Adj wt of IBW Protein g/k Protein Calculated 74 Fluid: ml 2502-2260 Nutritional Problem No current Nutrition Prob Problem N/A Malnutrition Alert Protein-Calorie Malnutrition N/A Is there a minimum of two criteria No selected? Query Text:Check all the applicable criteria. A minimum of two criteria are recommended for diagnosis of either severe or non-severe malnutrition. Intervention/Recommendation Comments 1. Continue with current diet as ordered. Notified otc clerk and updated food preference. 2. Monitor PO intake, wt, labs and skin integrity 3. F/U as low risk in 7 days, 06/27 Expected Outcomes/Goals Expected Outcomes/Goals 1. PO intake to meet at least 75% of nutritional needs. 2. Wt stability, skin to remain intact, labs WNL
[2017-07-04] MEDS: Polyvinyl Alcohol Ophth Soln 15 mL Bottle EACH EYE SCH ×2 (12:43→16:14)
[2017-07-04] MEDS: Vitamin B Complex w/Vitamin C Tab PO SCH (12:46)
[2017-07-04] MEDS: Potassium Chloride 20 mEq ER Tab PO SCH (12:46)
--- NOTE | 2017-07-05 01:38 | Progress Notes ---
DATE: 07/04/2017 PSYCHIATRIC PROGRESS NOTE SUBJECTIVE: Staff was spoken to. The patient is interviewed. Mood is noted to be irritable. Affect is constricted. Insight and judgment are noted to be still impaired. Impulse control seems to be limited. The patient has been able to tolerate the medication Haldol and hence it is decided to go with the Haldol Decanoate because of the patient's noncompliance with the medication. The patient is going to be closely monitored and if she is going to be doing fairly well. Possibly, the patient is going to be discharged tomorrow. JOB# [id number]
--- NOTE | 2017-07-05 08:55 | General Progress Note ---
Subjective - Review of Systems Service Date: 07/05/17 Subjective: I am fine Objective - Results Result Diagrams: 06/15/17 20:15 06/15/17 20:15 Recent Labs: Laboratory Last Values WBC 6.3 Th/cmm (4.8-10.8) 06/15/17 20:15 RBC 4.39 Mil/cmm (3.80-5.10) 06/15/17 20:15 Hgb 13.7 gm/dL (12-16) 06/15/17 20:15 Hct 39.5 % (41.0-60) L 06/15/17 20:15 MCV 89.9 fl (81-100) 06/15/17 20:15 MCH 31.2 pg (27.0-31.0) H 06/15/17 20:15 MCHC Differential 34.7 pg (28.0-36.0) 06/15/17 20:15 RDW 12.2 % (11.5-20.0) 06/15/17 20:15 Plt Count 271 Th/cmm (150-400) 06/15/17 20:15 MPV 9.0 fl 06/15/17 20:15 Neutrophils % 72.6 % (40.0-80.0) 06/15/17 20:15 Lymphocytes % 13.4 % (20.0-50.0) L 06/15/17 20:15 Monocytes % 8.7 % (2.0-10.0) 06/15/17 20:15 Eosinophils % 4.3 % (0.0-5.0) 06/15/17 20:15 Basophils % 1.0 % (0.0-2.0) 06/15/17 20:15 Sodium 137 mEq/L (136-145) 06/15/17 20:15 Potassium 3.6 mEq/L (3.5-5.1) 06/15/17 20:15 Chloride 104 mEq/L (98-107) 06/15/17 20:15 Carbon Dioxide 27.7 mEq/L (21.0-31.0) 06/15/17 20:15 Anion Gap 8.9 (7.0-16.0) 06/15/17 20:15 BUN 14 mg/dL (7-25) 06/15/17 20:15 Creatinine 0.9 mg/dL (0.6-1.2) 06/15/17 20:15 Est GFR ( Amer) > 60.0 ml/min (>90) 06/15/17 20:15 Est GFR (Non-Af Amer) > 60.0 ml/min 06/15/17 20:15 BUN/Creatinine Ratio 15.6 06/15/17 20:15 Glucose 97 mg/dL (70-105) 06/15/17 20:15 Calcium 8.6 mg/dL (8.6-10.3) 06/15/17 20:15 Total Bilirubin 0.6 mg/dL (0.3-1.0) 06/15/17 20:15 AST 19 U/L (13-39) 06/15/17 20:15 ALT 17 U/L (7-52) 06/15/17 20:15 Alkaline Phosphatase 53 U/L (34-104) 06/15/17 20:15 Total Protein 5.9 gm/dL (6.0-8.3) L 06/15/17 20:15 Albumin 3.7 gm/dL (3.7-5.3) 06/15/17 20:15 Globulin 2.2 gm/dL 06/15/17 20:15 Albumin/Globulin Ratio 1.7 (1.0-1.8) 06/15/17 20:15 TSH 2.66 uIU/ml (0.34-5.60) 06/15/17 20:15 Urine Source RANDOM 06/15/17 20:00 Urine Color YELLOW 06/15/17 20:00 Urine Clarity CLEAR (CLEAR) 06/15/17 20:00 Urine pH 7.5 (4.6 - 8.0) 06/15/17 20:00 Ur Specific [place] 1.010 (1.005-1.030) 06/15/17 20:00 Urine Protein NEGATIVE mg/dL (NEGATIVE) 06/15/17 20:00 Urine Glucose (UA) NEGATIVE mg/dL (NEGATIVE) 06/15/17 20:00 Urine Ketones NEGATIVE mg/dL (NEGATIVE) 06/15/17 20:00 Urine Blood NEGATIVE (NEGATIVE) 06/15/17 20:00 Urine Nitrate NEGATIVE (NEGATIVE) 06/15/17 20:00 Urine Bilirubin NEGATIVE (NEGATIVE) 01/06/18 20:00 Urine Urobilinogen 0.2 E.U./dL (0.2 - 1.0) 06/15/17 20:00 Ur Leukocyte Esterase TRACE (NEGATIVE) H 06/15/17 20:00 Urine RBC NONE SEEN /hpf (0-5) 06/15/17 20:00 Urine WBC 0-2 /hpf (0-5) 06/15/17 20:00 Ur Epithelial Cells FEW /lpf (FEW) 06/15/17 20:00 Urine Bacteria OCCASIONAL /hpf (NONE SEEN) 06/15/17 20:00 Valproic Acid < 10.0 ug/mL (50.0-100.0) L 07/02/17 19:11 RPR NONREACTIVE (NONREACTIVE) 06/15/17 20:15 - Physical Exam Vitals and I&O: Vital Signs Temp 98.0 F 07/04/17 20:00 Pulse 82 07/04/17 20:00 Resp 20 07/04/17 20:00 BP 127/76 07/04/17 20:00 Pulse Ox 95 07/04/17 20:00 Intake & Output 07/04/17 07/05/17 07/05/17 18:59 06:59 18:59 Intake Total 1100 250 Balance 1100 250 Intake: Oral 1100 250 Other: # Voids 4 2 # Bowel Movements 1 0 Stool Characteristics Soft Formed Active Medications: Current Medications Acetaminophen (Tylenol) 650 mg PO Q4HR PRN PRN Reason: Mild Pain / Temp above 100 Stop: 08/14/17 23:19 Artificial Tears (Artificial Tears Ophth Soln) 2 drop EACH EYE BID [facility] Stop: 08/15/17 08:59 Last Admin: 07/04/17 16:14 Dose: 2 drop Cholecalciferol (Vitamin D3) 1,000 iu PO BID [facility] Stop: 08/15/17 08:59 Last Admin: 07/04/17 16:13 Dose: 1,000 iu Docusate Sodium (Colace) 100 mg PO BID [facility] Stop: 08/15/17 08:59 Last Admin: 07/04/17 16:13 Dose: 100 mg Furosemide (Lasix) 20 mg PO DAILY [facility] Stop: 08/15/17 08:59 Last Admin: 07/04/17 12:45 Dose: Not Given Ibuprofen (Motrin) 600 mg PO Q8H PRN PRN Reason: Pain (Moderate) Stop: 08/14/17 22:59 Last Admin: 06/26/17 10:26 Dose: 600 mg Lisinopril (Zestril) 5 mg PO DAILY [facility] Stop: 08/15/17 08:59 Last Admin: 07/04/17 12:45 Dose: Not Given Potassium Chloride (Klor-Con) 20 meq PO DAILY [facility] Stop: 08/15/17 08:59 Last Admin: 07/04/17 12:46 Dose: 20 meq Quetiapine Fumarate (Seroquel) 200 mg PO HS [facility] PRN Reason: Protocol Stop: 09/01/17 20:59 Last Admin: 07/04/17 21:06 Dose: 200 mg Valproate Sodium (Depakene) 250 mg PO TID [facility] PRN Reason: Protocol Stop: 09/02/17 13:59 Last Admin: 07/04/17 21:05 Dose: 250 mg Vitamin B Complex/Vit C/Folic Acid (Vitamin B Complex W/Vitamin C) 1 tab PO DAILY [facility] Stop: 08/15/17 08:59 Last Admin: 07/04/17 12:46 Dose: 1 tab General: Alert, Other (Confused) HEENT: Atraumatic Neck: Supple Cardiovascular: Regular rate Lungs: Clear to auscultation Abdomen: Bowel sounds Neurological: Normal gait Skin: Other (Warm and dry) Psych/Mental Status: Other (Confused, not oriented) - Procedures Procedures: Procedures Procedure Code Date [facility] UNILAT SALPINGO-OOPHORECTOMY 65.49 05/27/98 REMOVAL OF OVARY/TUBE(S) 98370 05/27/98 Assessment/Plan - Assessment Assessment: Patient is awake, alert, agitated at moments. Occasionally refusing meds. Dx: increased in agitation, HTN. - Plan Plan: Patient under Psychiatric care, will continue with SNF meds. Will continue to monitor. Nutritional Asmnt/Malnutr-PDOC - Dietary Evaluation Malnutrition Findings (Please click <Entered> for more info): Nutritional Asmnt/Malnutrition Start: 06/20/17 15: 46 Text: Status: Complete Freq: Document 06/20/17 15:46 DOMINGA (Rec: 06/20/17 15:56 [email or web address] [id number]) Nutritional Asmnt/Malnutrition Patient General Information Nutritional Screening Moderate Risk Diagnosis psychosis Pertinent Medical Hx/Surgical Hx CAD, HTN Subjective Information Pt seen sitting on bed at the time of visit, awake and alert . Pt reported good appetite, PO intake 100%, likes the food , no coffee but likes tea. Current Diet Order/ Nutrition Support low sodium Pertinent Medications vitamin D3, colace, lasix, kcl , seroquel, vitamin B complex/ visit C/folic acid Pertinent Labs 06/15 nutrition related labs WNL Nutritional Hx/Data Height 1.7 m Height (Calculated Centimeters) 170.2 Current Weight (lbs) 92.986 kg Weight (Calculated Kilograms) 93.0 Weight (Calculated Grams) 00000.4 Spiro Body Weight 148 % Spiro Body Weight 139 Body Mass Index (BMI) 32.1 Weight Status Obese GI Symptoms GI Symptoms None Last BM 06/19 Difficult in: None Skin Integrity/Comment: swelling BLE, intact Current %PO Good (75-100%) Estimated Nutritional Goals BEE in Kcals: Adj wt of IBW Calories/Kcals/Kg 25-30 based on adj wt 74kg Kcals Calculated 5499-4117 Protein: Adj wt of IBW Protein g/k Protein Calculated 74 Fluid: ml [id number] Nutritional Problem No current Nutrition Prob Problem N/A Malnutrition Alert Protein-Calorie Malnutrition N/A Is there a minimum of two criteria No selected? Query Text:Check all the applicable criteria. A minimum of two criteria are recommended for diagnosis of either severe or non-severe malnutrition. Intervention/Recommendation Comments 1. Continue with current diet as ordered. Notified dietetic intern and updated food preference. 2. Monitor PO intake, wt, labs and skin integrity 3. F/U as low risk in 7 days, 06/27 Expected Outcomes/Goals Expected Outcomes/Goals 1. PO intake to meet at least 75% of nutritional needs. 2. Wt stability, skin to remain intact, labs WNL
[2017-07-05] MEDS: Potassium Chloride 20 mEq ER Tab PO SCH (09:04)
[2017-07-05] MEDS: Vitamin B Complex w/Vitamin C Tab PO SCH (09:04)
[2017-07-05] MEDS: Polyvinyl Alcohol Ophth Soln 15 mL Bottle EACH EYE SCH (09:06)
--- NOTE | 2017-07-05 17:21 | Discharge Summary ---
DATE OF DISCHARGE: 07/05/2017 IDENTIFYING DATA: The patient is a 56-year-old resident of [facility]. Information obtained directly interviewing the patient as well as reviewing the admission papers, disposition hospitalization. The patient is admitted here on a voluntary basis in view of her agitation. CHIEF COMPLAINT: "I do not know, I don't need these medications." DIAGNOSES AT THE TIME OF ADMISSION: AXIS I: Schizoaffective disorder. AXIS II: None. AXIS III: As per Dr. Gandara. HISTORY OF PRESENT ILLNESS: Please refer to the 06/16/2017 dictation done by me. Physical examination at the time of admission was done by Dr. Gandara and is noted to be significant for high blood pressure. HOSPITAL COURSE AND RESPONSE TO TREATMENT: The patient has been observed on inpatient unit, provided with supportive psychotherapy. The patient has been initially very reluctant to comply with the medication. The patient has constantly been testing the limits. The patient has been closely monitored and the patient is noted to be on a conservatorship and hence has been mentioned that if she is not going to be comply with the medications, she is going to be given the injections and the patient has been started on the Haldol as a p.r.n. in the beginning and then the patient has also been continued on the Seroquel. The patient with these medications has been observed and on 07/04/2017, the patient's haloperidol has been changed to Haldol decanoate and the patient has been continued on the Seroquel 200 mg at bedtime. With these medications, the patient was noted to be doing fairly well and the patient was finally discharged on 07/05/2017 with recommendation that she is going to be seeking treatment on an outpatient basis. The patient's valproic acid level was noted to be less. The patient has been placed on the valproic acid rather than the Depakote capsules. The impulsivity came under control and the patient was discharged with recommendation that she is going to be seeking treatment on an outpatient basis. MENTAL STATUS EXAMINATION: At the time of discharge, the patient's mood is noted to be less irritable. Affect is appropriate. Not suicidal or homicidal. Insight and judgment are improving. Impulse control seems to be fair. Coping skills are noted to be fair. The patient has been able to verbalize the concerns rather than to act out at the time of discharge. CONDITION: At the time of discharge noted to be stable. JOB# [id number]
== END 2017-07-05 14:20 | disposition home or self-care (01) | DRG 885 ==
LOC: ER 19:42 → GERO 20:55
PROVIDERS: ADMIT Psychiatry & Neurology Psychiatry; ATTEND Psychiatry & Neurology Psychiatry
DX: F25.9 Schizoaffective disorder, unspecified (principal); Z91.14 Patient's other noncompliance with medication regimen; F17.210 Nicotine dependence, cigarettes, uncomplicated; I10 Essential (primary) hypertension; I25.10 Atherosclerotic heart disease of native coronary artery without angina pectoris; Z66 Do not resuscitate; Z79.899 Other long term (current) drug therapy
CPT/HCPCS: 36415-UA; 80053-TC; 80164-TC; 81001-TC; 84443-TC; 85025-TC; 86592-TC; 90899; 93005; G0410; J1200; J1630; J1631; J2060; Z7610